=== PATIENT | female | born 1965 | race Caucasian/White ===

== ENCOUNTER 2018-04-20 03:36 | Emergency (ER) | payer BC ==
--- OUTSIDE RECORDS SUMMARY | 2018-04-20 03:39 | XMS REPORT | Continuity of Care Document ---
:1965 Author Organization Interface Problems Problem Status Onset Classification Date Comments Source Date Reported Discharge 07/24/2016 [facility] Diagnosis: 7 [facility] Productive cough Discharge 07/24/2016 [facility] Diagnosis: 7 [facility] Nasal congestion Discharge 07/24/2016 [facility] Diagnosis: 7 [facility] Acute headache Discharge 07/24/2016 [facility] Diagnosis: 7 [facility] Myalgia Discharge 07/24/2016 [facility] Diagnosis: 7 [facility] Fever Discharge 07/24/2016 [facility] Diagnosis: N&V 7 [facility] VOMITING/DIARR Active [facility] HEA 7 [facility] Diabetes Resolved Problem 07/24/2016 [facility] mellitus [facility] Medications Medication Details Route Status Patient Ordering Order Source Instructions Provider Date Acetaminophen 650 mg, 2 Inactive tab, 017 [facility] Route: PO, [facility] form: TAB, ONCE, Dosing Weight 112.727, kg, Start date: 07/21/16 19:56:00 CDT, Stop date: 07/21/16 19:56:00 CDTNotes: Do not exceed 4 gm/day. (Same as: Tylenol) Saline Flush 10 mL, Inactive 0.9% Route: [address] [place] [address] IVP, Drug [facility] Form: INJ, Dosing Weight 112.727, kg, PRN, PRN Line Flush, Start date: 07/21/16 19:56:00 CDT, Duration: 30 day, Stop date: 08/20/16 19:55:00 CDTNotes: (Same as: BD Posiflush) Calcium Chloride 3,000 mL, Inactive 0.0014 MEQ/ML / 2,[address] [place] [address] Potassium ml/hr, City Chloride 0.004 Infuse MEQ/ML / Sodium Over: 1.5 Chloride 0.103 hr, Route: MEQ/ML / Sodium IV, 3,000, Lactate 0.028 Drug form: MEQ/ML INJ, ONCE, Injectable Priority: Solution STAT, Dosing Weight 112.727 kg, Start date: 07/21/16 19:56:00 CDT, Duration: 1 doses or times, Stop date: 07/21/16 19:56:00 CDT Allergies, Adverse Reactions, Alerts Substance Category Reaction Severity Reaction Status Date Comments Source type Reported penicillins Assertion Drug Active allergy [facility] Immunizations Immunization Date Given Site Status Last Updated Comments Source Results Order Name Results Value Reference Date Interpretation Comments Source Range URINE AND UA <=1.0 0.1 - 1.0 07/22 STOOL Urobilinogen mg/dL [facility] URINE AND UA Ketones Negative 07/22 [facility] URINE AND UA RBC 9 /HPF 0 - 2 07/22 [facility] URINE AND UA WBC 2 /HPF 0 - 5 07/22 [facility] URINE AND UA Bacteria Occasional None Seen 07/22 STOOL /HPF /HPF /2016 [facility] URINE AND UA Mucus Few /LPF None Seen 07/22 STOOL /LPF [facility] URINE AND UA Sq Epi Occasional Few /LPF 07/22 STOOL /LPF [facility] URINE AND UA Leuk Est Negative Negative 07/22 [facility] (07/21/16 9:00 PM) [facility] URINE AND UA Nitrite Negative Negative 07/22 [facility] (07/21/16 9:00 PM) [facility] URINE AND UA pH 6.0 5.0 - 8.0 07/22 [facility] URINE AND UA Spec Grav 1.027 <=1.030 07/22 [facility] URINE AND UA Glucose Negative Negative 07/22 STOOL mg/dL mg/dL [facility] URINE AND UA Protein Negative Negative 07/22 STOOL mg/dL mg/dL [facility] URINE AND UA Color Yellow Yellow 07/22 [facility] *NA* [facility] (07/21/16 9:00 PM) URINE AND UA Turbidity Clear Clear 07/22 [facility] (07/21/16 9:00 PM) [facility] URINE AND UA Bili Negative Negative 07/22 [facility] *NA* [facility] (07/21/16 9:00 PM) URINE AND UA Blood Negative Negative 07/22 [facility] (07/21/16 9:00 PM) [facility] VIRAL - Influ A Negative Negative 07/22 SEROLOGY [facility] (07/21/16 8:07 PM) [facility] VIRAL - Influ B Negative Negative 07/22 SEROLOGY [facility] (07/21/16 8:07 PM) [facility] CARDIAC Total CK 41 unit/L 12 - 191 07/22 ENZYMES [facility] CARDIAC CK MB null 0.5 - 3.6 07/22 ENZYMES [facility] CARDIAC Troponin-I null 0.00 - 07/22 ENZYMES 0.40 [facility] CARDIAC CK MB Index null 0.0 - 2.5 07/22 ENZYMES [facility] CHEM PANEL Lactic Acid 1.7 mmol/L 0.5 - 2.2 07/22 WB [facility] CHEM PANEL Procalcitoni <0.05 0.00 - 07/22 n Lvl ng/mL 0.10 [facility] CHEM PANEL eGFR 102 07/22 Result Comment: The eGFR is calculated using the CKD-EPI formula. In most young, healthy individuals the eGFR will be >90 mL/ min/1.73m2. The eGFR declines with age. An eGFR of 60-89 may be normal in mL/min/1.7 some populations, particularly the elderly, for whom the CKD-EPI formula has not been extensively validated. Use of the eGFR is not recommended in the following populations: [address] Individuals with unstable creatinine concentrations, including patients and those with serious co-morbid conditions. Patients with extremes in muscle mass or diet. The data above are obtained from the National Kidney Disease Education Program (NKDEP) which additionally recommends that when the eGFR is used in patients with extremes of body mass index for purposes of drug dosing, the eGFR should be multiplied by the estimated BMI. CHEM PANEL Total 7.6 g/dL 6.4 - 8.4 07/22 Protein [facility] CHEM PANEL CO2 27 meq/L 24 - 32 07/22 [facility] CHEM PANEL Bili Total 0.8 mg/dL 0.2 - 1.3 07/22 [facility] CHEM PANEL Alk Phos 82 unit/L 39 - 136 07/22 [facility] CHEM PANEL AST 13 unit/L 0 - 37 07/22 [facility] CHEM PANEL ALT 25 unit/L 0 - 65 07/22 [facility] CHEM PANEL Albumin Lvl 3.2 g/dL 3.5 - 5.0 07/22 [facility] CHEM PANEL BUN 15 mg/dL 7 - 22 05 [facility] CHEM PANEL Glucose Lvl 165 mg/dL 70 - 99 05 [facility] CHEM PANEL Creatinine 0.70 mg/dL 0.50 - 05 MH Lvl 1.40 [facility] CHEM PANEL Potassium 3.8 meq/L 3.5 - 5.1 07/22 MH Lvl /2016 [facility] CHEM PANEL Chloride Lvl 100 meq/L 95 - 109 07/22 [facility] CHEM PANEL Sodium Lvl 139 meq/L 135 - 145 07/22 [facility] CHEM PANEL Calcium Lvl 8.5 mg/dL 8.5 - 10.5 07/22 [facility] CHEM PANEL AGAP 15.8 meq/L 10.0 - 07/22 MH 20.0 [facility] CHEM PANEL A/G Ratio 0.7 0.7 - 1.6 07/22 [facility] CHEM PANEL Globulin 4.4 g/dL 2.7 - 4.2 07/22 [facility] CHEM PANEL B/C Ratio 21 6 - 25 07/22 [facility] HEMATOLOGY PTT 26.0 s 22.9 - 07/22 MH 35.8 /2016 [facility] HEMATOLOGY INR 0.93 0.85 - 07/22 MH 1.17 [facility] HEMATOLOGY PT 12.7 s 12.0 - 07/22 MH 14.7 [facility] HEMATOLOGY Platelet 299 K/CMM 133 - 450 07/22 [facility] HEMATOLOGY MPV 8.7 fL 7.4 - 10.4 07/22 [facility] HEMATOLOGY WBC 13.5 K/CMM 3.7 - 10.4 07/22 [facility] HEMATOLOGY RBC 4.73 M/CMM 4.20 - 07/22 MH 5.40 [facility] HEMATOLOGY Hgb 13.0 g/dL 12.0 - 07/22 MH 16.0 [facility] HEMATOLOGY MCV 82.8 fL 80.0 - 07/22 MH 98.0 [facility] HEMATOLOGY MCH 27.6 pg 27.0 - 07/22 MH 31.0 [facility] HEMATOLOGY MCHC 33.3 g/dL 32.0 - 07/22 MH 36.0 /2016 [facility] HEMATOLOGY RDW 14.2 % 11.5 - 07/22 MH 14.5 /2016 [facility] HEMATOLOGY Hct 39.1 % 36.0 - 07/22 MH 48.0 /2017 [facility] HEMATOLOGY Lymphocytes 1.0 K/CMM 1.0 - 5.5 05 MH # /2017 [facility] HEMATOLOGY Monocytes # 0.4 K/CMM 0.0 - 0.8 07/22 MH [facility] HEMATOLOGY Basophils # 0.1 K/CMM 0.0 - 0.2 07/22 MH [facility] HEMATOLOGY Eosinophils 0.4 % 0.0 - 4.0 07/22 [facility] HEMATOLOGY Basophils 0.5 % 0.0 - 1.0 07/22 [facility] HEMATOLOGY Monocytes 3.2 % 2.0 - 12.0 07/22 [facility] HEMATOLOGY Segs-Bands # 11.9 K/CMM 1.5 - 8.1 07/22 [facility] HEMATOLOGY Segs 88.3 % 45.0 - 07/22 75.0 /2016 [facility] HEMATOLOGY Lymphocytes 7.6 % 20.0 - 07/22 40.0 [facility] Chest 1view Chest 1view Clinical History : , - Undifferentiated Sepsis 07/21 - DX - [facility] Exam : Portable AP view of the chest 07/21/2016 7:56 PM CDT Read by: Rajesh Lara MD Dictated Date/time: 07/21/16 20:57 Electronically Signed by: Rajesh Lara MD 07/21/16 20:57 FINAL REPORT Comparisons : none Findings : The lungs are clear without focal consolidation or pleural effusion. The heart is normal in size. The mediastinal contours are normal in appearance. The thoracic spine is age appropriate. The shoulders are unremarkable. Limited evaluation of the upper abdomen demonstrates no gross abnormalities. Impression: No acute cardiopulmonary disease Vital Signs Vital Sign Value Date Comments Source Respitory Rate 18 07/22/2016 [facility] Systolic (mm Hg) 108 07/22/2016 [facility] Diastolic (mm Hg) 49 07/22/2016 [facility] Systolic (mm Hg) 109 07/22/2016 [facility] Diastolic (mm Hg) 43 07/22/2016 [facility] Respitory Rate 16 07/22/2016 [facility] Systolic (mm Hg) 119 07/22/2016 [facility] Diastolic (mm Hg) 65 07/22/2016 [facility] Respitory Rate 18 07/22/2016 [facility] BMI Calculated 46.96 07/22/2016 [facility] Weight 112.727 07/22/2016 [facility] Height 154.94 cm 07/22/2016 [facility] Temperature Oral (F) 100.2 F 07/22/2016 [facility] Heart Rate 129 07/22/2016 [facility] Encounters Location Location Encounter Encounter Reason Attending ADM DC Status Source Details Type Number For Provider Date Date Visit [facility] Emergency [id number] Adam 07/22 07/22 Stephon [place] /2016 [facility] Procedures Procedure Code Date Perfomer Comments Source
--- OUTSIDE RECORDS SUMMARY | 2018-04-20 03:39 | XMS REPORT | Summary of Care ---
:1965 Author Organization [facility] Address [address] [place] [id number]- Encounter HQ Nancy(FIN) [id number] Date(s): 07/21/16 - 07/21/[address] [address]- Discharge Diagnosis: Productive cough Discharge Diagnosis: Nasal congestion Discharge Diagnosis: Acute headache Discharge Diagnosis: Myalgia Discharge Diagnosis: Fever Discharge Diagnosis: N&V (nausea and vomiting) Discharge Disposition: Home or Self Care Attending Physician: Adam Eisenberg MD Vital Signs Most recent to oldest 1 2 3 [Reference Range]: Height 154.94 cm (07/21/16 7:52 PM) Temperature Oral [96.4-99.1 100.2 DegF DegF] *HI* (07/21/16 7:52 PM) Blood Pressure [90-140/60-90 108/49 mmHg 109/43 mmHg 119/65 mmHg mmHg] (07/21/16 10:38 PM) (07/21/16 9:29 PM) (07/21/16 8:50 PM) Respiratory Rate [14-20 BRMIN] 18 BRMIN 16 BRMIN 18 BRMIN (07/21/16 10:38 PM) (07/21/16 9:29 PM) (07/21/16 8:50 PM) Peripheral Pulse Rate [60-100 129 bpm bpm] *HI* (07/21/16 7:52 PM) Weight 112.727 kg (07/21/16 7:52 PM) Body Mass Index 46.96 m2 (07/21/16 7:52 PM) Problem List Condition Effective Dates Status Health Status Informant Diabetes mellitus(Confirmed) Resolved Allergies, Adverse Reactions, Alerts Substance Reaction Severity Status penicillins Active Medications acetaminophen 650 mg, 2 tab, Route: PO, Drug form: TAB, ONCE, Dosing Weight 112.727, kg, Start date: 07/21/16 19:56:00 CDT, Stop date: 07/21/16 19:56:00 CDT Notes: Do not exceed 4 gm/day. (Same as: Tylenol) Start Date: 07/21/16 Stop Date: 07/21/16 Status: CompletedLactated Ringers Injection IV (Lactated Ringers (Bolus) IV) 3,000 mL, 2,000 ml/hr, Infuse Over: 1.5 hr, Route: IV, 3,000, Drug form: INJ, ONCE, Priority: STAT, Dosing Weight 112.727 kg, Start date: 07/21/16 19:56:00 CDT, Duration: 1 doses or times, Stop date: 07/21/16 19:56:00 CDT Start Date: 07/21/16 Stop Date: 07/21/16 Status: CompletedSaline Flush 0.9% 10 mL, Route: IVP, Drug Form: INJ, Dosing Weight 112.727, kg, PRN, PRN Line Flush, Start date: 07/21/16 19:56:00 CDT, Duration: 30 day, Stop date: 08/20/16 19:55:00 CDT Notes: (Same as: BD Posiflush) Start Date: 07/21/16 Stop Date: 07/21/16 Status: Discontinued Results ELECTROLYTES Most recent to oldest [Reference Range]: 1 Sodium Lvl [135-145 mEq/L] 139 mEq/L (07/21/16 8:05 PM) Potassium Lvl [3.5-5.1 mEq/L] 3.8 mEq/L (07/21/16 8:05 PM) Chloride Lvl [95-109 mEq/L] 100 mEq/L (07/21/16 8:05 PM) CO2 [24-32 mEq/L] 27 mEq/L (07/21/16 8:05 PM) AGAP [10.0-20.0 mEq/L] 15.8 mEq/L (07/21/16 8:05 PM) CHEM PANEL Most recent to oldest [Reference Range]: 1 Creatinine Lvl [0.50-1.40 mg/dL] 0.70 mg/dL (07/21/16 8:05 PM) eGFR 102 mL/min/1.73m2 1 *NA* (07/21/16 8:05 PM) BUN [7-22 mg/dL] 15 mg/dL (07/21/16 8:05 PM) B/C Ratio [6-25] 21 (07/21/16 8:05 PM) Glucose Lvl [70-99 mg/dL] 165 mg/dL *HI* (07/21/16 8:05 PM) Total Protein [6.4-8.4 g/dL] 7.6 g/dL (07/21/16 8:05 PM) Albumin Lvl [3.5-5.0 g/dL] 3.2 g/dL *LOW* (07/21/16 8:05 PM) Globulin [2.7-4.2 g/dL] 4.4 g/dL *HI* (07/21/16 8:05 PM) A/G Ratio [0.7-1.6] 0.7 (07/21/16 8:05 PM) Calcium Lvl [8.5-10.5 mg/dL] 8.5 mg/dL (07/21/16 8:05 PM) ALT [0-65 unit/L] 25 unit/L (07/21/16 8:05 PM) AST [0-37 unit/L] 13 unit/L (07/21/16 8:05 PM) Alk Phos [39-136 unit/L] 82 unit/L (07/21/16 8:05 PM) Bili Total [0.2-1.3 mg/dL] 0.8 mg/dL (07/21/16 8:05 PM) Lactic Acid WB [0.5-2.2 mmol/L] 1.7 mmol/L (07/21/16 8:05 PM) Procalcitonin Lvl [0.00-0.10 ng/mL] <0.05 ng/mL (07/21/16 8:05 PM) 1Result Comment: The eGFR is calculated using the CKD-EPI formula. In most young , healthy individualsthe eGFR will be >90 mL/min/1.73m2. The eGFR declines with age. An eGFR of 60-89 may be normal in some populations, particularly the elderly, for whom the CKD-EPI formula has not been extensively validated. Use of the eGFR is not recommended in the following populations: Individuals with unstable creatinine concentrations, including patients and those with serious co-morbid conditions. Patients with extremes in muscle mass or diet. The data above are obtained from the National Kidney Disease Education Program ( NKDEP) which additionally recommends that when the eGFR is used in patients with extremes of body mass index for purposesof drug dosing, the eGFR should be multiplied by the estimated BMI.CARDIAC ENZYMES Most recent to oldest [Reference Range]: 1 Total CK [12-191 unit/L] 41 unit/L (07/21/16 8:05 PM) CK MB [0.5-3.6 ng/mL] <0.5 ng/mL (07/21/16 8:05 PM) CK MB Index [0.0-2.5] <1.2 (07/21/16 8:05 PM) Troponin-I [0.00-0.40 ng/mL] <0.02 ng/mL (07/21/16 8:05 PM) URINE AND STOOL Most recent to oldest [Reference Range]: 1 UA Turbidity [Clear] Clear (07/21/16 9:00 PM) UA Color [Yellow] Yellow *NA* (07/21/16 9:00 PM) UA pH [5.0-8.0] 6.0 (07/21/16 9:00 PM) UA Spec Grav [<=1.030] 1.027 (07/21/16 9:00 PM) UA Glucose [Negative mg/dL] Negative mg/dL *NA* (07/21/16 9:00 PM) UA Blood [Negative] Negative (07/21/16 9:00 PM) UA Ketones Negative *NA* (07/21/16 9:00 PM) UA Protein [Negative mg/dL] Negative mg/dL (07/21/16 9:00 PM) UA Urobilinogen [0.1-1.0 mg/dL] <=1.0 mg/dL *NA* (07/21/16 9:00 PM) UA Bili [Negative] Negative *NA* (07/21/16 9:00 PM) UA Leuk Est [Negative] Negative (07/21/16 9:00 PM) UA Nitrite [Negative] Negative (07/21/16 9:00 PM) UA WBC [0-5 /HPF] 2 /HPF (07/21/16 9:00 PM) UA RBC [0-2 /HPF] 9 /HPF *HI* (07/21/16 9:00 PM) UA Bacteria [None Seen /HPF] Occasional /HPF *NA* (07/21/16 9:00 PM) UA Sq Epi [Few /LPF] Occasional /LPF *NA* (07/21/16 9:00 PM) UA Mucus [None Seen /LPF] Few /LPF *NA* (07/21/16 9:00 PM) HEMATOLOGY Most recent to oldest [Reference Range]: 1 WBC [3.7-10.4 K/CMM] 13.5 K/CMM *HI* (07/21/16 8:05 PM) RBC [4.20-5.40 M/CMM] 4.73 M/CMM (07/21/16 8:05 PM) Hgb [12.0-16.0 g/dL] 13.0 g/dL (07/21/16 8:05 PM) Hct [36.0-48.0 %] 39.1 % (07/21/16 8:05 PM) MCV [80.0-98.0 fL] 82.8 fL (07/21/16 8:05 PM) MCH [27.0-31.0 pg] 27.6 pg (07/21/16 8:05 PM) MCHC [32.0-36.0 g/dL] 33.3 g/dL (07/21/16 8:05 PM) RDW [11.5-14.5 %] 14.2 % (07/21/16 8:05 PM) Platelet [133-450 K/CMM] 299 K/CMM (07/21/16 8:05 PM) MPV [7.4-10.4 fL] 8.7 fL (07/21/16 8:05 PM) Segs [45.0-75.0 %] 88.3 % *HI* (07/21/16 8:05 PM) Lymphocytes [20.0-40.0 %] 7.6 % *LOW* (07/21/16 8:05 PM) Monocytes [2.0-12.0 %] 3.2 % (07/21/16 8:05 PM) Eosinophils [0.0-4.0 %] 0.4 % (07/21/16 8:05 PM) Basophils [0.0-1.0 %] 0.5 % (07/21/16 8:05 PM) Segs-Bands # [1.5-8.1 K/CMM] 11.9 K/CMM *HI* (07/21/16 8:05 PM) Lymphocytes # [1.0-5.5 K/CMM] 1.0 K/CMM (07/21/16 8:05 PM) Monocytes # [0.0-0.8 K/CMM] 0.4 K/CMM (07/21/16 8:05 PM) Basophils # [0.0-0.2 K/CMM] 0.1 K/CMM (07/21/16 8:05 PM) PT [12.0-14.7 seconds] 12.7 seconds (07/21/16 8:05 PM) INR [0.85-1.17] 0.93 (07/21/16 8:05 PM) PTT [22.9-35.8 seconds] 26.0 seconds (07/21/16 8:05 PM) VIRAL - SEROLOGY Most recent to oldest [Reference Range]: 1 Influ A [Negative] Negative (07/21/16 8:07 PM) Influ B [Negative] Negative (07/21/16 8:07 PM) Immunizations No data available for this section Procedures No data available for this section Social History Social History Type Response Smoking Status Never smoker; Ready to change: No; Concerns about tobacco use in household: No; Exposure to Tobacco Smoke None; Cigarette Smoking Last 365 Days No; Reg Smoking Cessation Counseling No Assessment and Plan No data available for this section
[2018-04-20 04:24] LABS: Absolute Lymphocytes (CBC) 3.1 K/uL (0.7-4.9); Absolute Monocytes 0.6 K/uL (0.1-1.3); Absolute Neutrophil 7.6 K/uL (1.8-8.0); Basophils % 0.6 % (0-1.3); Eosinophils % 2.3 % (0-4.4); Hematocrit 36.8 % (36.0-45.0); Lymphocytes % 26.3 % (15.3-44.8); MPV 8.7 fL (7.6-11.3); Monocytes % 5.2 % (3.3-12.3); RBC Red Blood Cell Count 4.31 M/uL (3.86-4.86)
[2018-04-20] MEDS ORDERED: NA CHLORIDE 0.9% 1,000 ML ONE (04:30)
[2018-04-20] MEDS ORDERED: KETOROLAC 30 MG/ML INJ ONE (04:30)
[2018-04-20] MEDS ORDERED: ONDANSETRON 4 MG/2 ML VIAL ONE ×2 (04:30→08:25)
[2018-04-20] MEDS ORDERED: MORPHINE 4 MG/ML SYR ONE (04:30)
[2018-04-20 04:48] LABS: Albumin 3.2 g/dL (3.4-5.0); Bilirubin Direct 0.1 mg/dL (0-0.2); Bilirubin Total 0.5 mg/dL (0.2-1.0); Potassium 4.1 mmol/L (3.5-5.1); Protein, Total 7.4 g/dL (6.4-8.2)
[2018-04-20 05:03] LABS: Urine Blood TRACE (NEG); Urine Glucose NEGATIVE (NEG); Urine Protein 1+ (NEG); Urine Specific Gravity >1.030 (1.005-1.030); Urine pH 5.5 (5.0-7.0)
[2018-04-20] MEDS ORDERED: CEFTRIAXONE 1000 MG/VIAL ONE (05:50)
[2018-04-20] MEDS ORDERED: NA CHLORIDE 0.9% 50 ML IV ONE (05:50)
--- NOTE | 2018-04-20 07:20 | EKG ---
Test Date: 2018-04-20 Test Time: 03:58:43 Braille Typist: VERN MEASUREMENT RESULTS: Intervals: Rate: 76 NJ: 106 QRSD: 82 QT: 364 QTc: 409 [place]: P: 3 NJ: 106 QRS: -1 T: 25 INTERPRETIVE STATEMENTS: Sinus rhythm with short [place] Moderate voltage criteria for LVH, may be normal variant Borderline ECG Compared to ECG 09/04/2014 13:37:01 Short [place] interval now present Electronically Signed On 04-20-18 07:19:39 FACILITY SPECIALIST by Tiago Eaton
--- NOTE | 2018-04-20 08:02 | RAD REPORT ---
EXAM DESCRIPTION: CT - Chest For Pe Angio - 04/20/2018 7:25 am CLINICAL HISTORY: Abdominal pain, chest pain, prior hysterectomy, appendectomy and cholecystectomy COMPARISON: CT chest April 2016 and August 2014 TECHNIQUE: Dynamically enhanced 3 mm thick images of the chest were obtained during administration o f approximately 150mL Isovue 370 IV contrast. Coronal and oblique MIP reconstruction images were gene rated and reviewed. Exam utilizes a protocol to evaluate the pulmonary arterial tree. All CT scans are performed using dose optimization technique as appropriate and may include automated exposure control or mA/KV adjustment according to patient size. FINDINGS: No pulmonary emboli are identified. The aorta as imaged shows no acute or suspicious finding. No pericardial thickening or effusion. No acute infiltrate identified. No large or worrisome mass seen in the lung parenchyma. In the latera l right lower lung field (image 50/101) there is a 6 millimeter noncalcified pulmonary nodule. This n odule is approximately 5 mm in 2017 and 4-5 mm in 2014. There is slight motion on the current examina tion which could potentially exaggerates the size of the pulmonary nodule. Potential growth of 1- 2 m m over nearly 5 year interval would favor a benign process. 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 No other nodule seen. No pleural effusion or pleural thickening. No pleural based mass. No mediastinal or hilar suspicious masses. No chest wall masses or abnormal axillary lymphadenopathy. No pericardial thickening or effusion. IMPRESSION: No pulmonary emboli identified. No acute infectious infiltrate. No significant interstitial process identifiable. A right lower lung field pulmonary nodule measures 6 mm on the current examination, 5 mm in 2016 and 4-5 mm in 2014.This minimal if any growth over a nearly 5 year interval would strongly favor a benign process. If the patient has risk factors for malignancy, CT chest re- imaging in 6-12 months could be performe d to assure stability. The nodule is too small for PET-CT characterization.
--- NOTE | 2018-04-20 08:25 | RAD REPORT ---
EXAM DESCRIPTION: US - Extrem Venous W Compress Tutu - 04/20/2018 7:04 am CLINICAL HISTORY: Leg pain and swelling COMPARISON: None. TECHNIQUE: Real-time sonographic evaluation of the bilateral lower extremity common femoral, superfi cial femoral, popliteal and posterior tibial veins was performed. FINDINGS: Normal compressibility, flow augmentation, phasic flow and spontaneous flow are identified in the left and right lower extremity common femoral, superficial femoral, popliteal and posterior t ibial veins. No intraluminal filling defects seen. IMPRESSION: No DVT in either lower extremity.
--- NOTE | 2018-04-20 09:01 | ER ---
Nurse's Notes [facility] Name: Willow Guerrero Age: 52 yrs Sex: Female : 1965 Arrival Date: 04/20/2018 Time: 03:38 Bed 8 Private MD: Juanita De C Diagnosis: Urinary tract infection, site not specified;Abdominal tenderness;Type 2 diabetes mellitus;Obesity, unspecified Presentation: 04/20 03:52 Presenting complaint: Patient states: I have had kidney stones in the past and this ed1 feel a little bit similar to that. I have also had diarrhea since Friday and Dr. De prescribed me Lomotil. The diarrhea isn't watery anymore but it is still loose. Transition of care: patient was not received from another setting of care. Onset of symptoms was April 19, 2018. Risk Assessment: Do you want to hurt yourself or someone else? Patient reports no desire to harm self or others. Initial Sepsis Screen: Does the patient meet any 2 criteria? No. Patient's initial sepsis screen is negative. Does the patient have a suspected source of infection? No. Patient's initial sepsis screen is negative. Care prior to arrival: None. 03:52 Method Of Arrival: Ambulatory ed1 03:52 Acuity: HERBERT 3 ed1 Triage Assessment: 04:00 General: Appears uncomfortable, Behavior is calm, cooperative. Pain: Complains of pain ed1 in posterior aspect of right lateral abdomen and anterior aspect of right lateral abdomen Pain does not radiate. Pain currently is 9 out of 10 on a pain scale. Quality of pain is described as sharp, Pain began 1 day ago. Is continuous. EENT: Oral mucosa is moist. Neuro: Level of Consciousness is awake, alert, obeys commands, Oriented to person, place, time, situation. Cardiovascular: Denies chest pain, Heart tones S1 S2 present. Respiratory: Airway is patent Respiratory effort is even, unlabored, Respiratory pattern is regular, symmetrical, Breath sounds are clear bilaterally. Denies cough, shortness of breath. GI: Abdomen is obese, Bowel sounds present X 4 quads. Abd is soft X 4 quads Reports lower abdominal pain, upper abdominal pain, diarrhea, nausea, Patient currently denies vomiting. : No signs and/or symptoms were reported regarding the genitourinary system. Derm: Skin is intact, is healthy with good turgor, Skin is dry, Skin is normal, Skin temperature is warm. Musculoskeletal: Circulation, motion, and sensation intact. Capillary refill < 3 seconds, in bilateral fingers. 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 ed1 Historical: - Allergies: 04:00 PENICILLINS; ed1 - Home Meds: 04:00 atorvastatin 40 mg oral tab 1 tab once daily [Active]; gabapentin 100 mg oral cap 2 ed1 caps 3 times per day [Active]; lisinopril 2.5 mg oral tab 1 tab once daily [Active]; metformin 1,000 mg oral tab 1 tab 2 times per day [Active]; Vitamin B-12 500 mcg Oral tab 1 tab daily [Active]; glimepiride 4 mg Oral tab 1 tab twice a day [Active]; propranolol 10 mg Oral tab 1 tab daily [Active]; Tradjenta 5 mg oral tab 1 tab once daily [Active]; loratadine 10 mg oral tab 1 tab once daily [Active]; - PMHx: 04:00 Diabetes - NIDDM; High Cholesterol; ed1 - PSHx: 04:00 Hysterectomy; Appendectomy; Adenoids; Tonsillectomy; Cholecystectomy; ed1 - Immunization history:: Adult Immunizations up to date, Flu vaccine is not up to date. It has been more than one year since last vaccine. - Social history:: Smoking status: Patient/guardian denies using tobacco. - Ebola Screening: : Patient negative for fever greater than or equal to 101.5 degrees Fahrenheit, and additional compatible Ebola Virus Disease symptoms Patient denies exposure to infectious person Patient denies travel to an Ebola-affected area in the 21 days before illness onset No symptoms or risks identified at this time. - Family history:: not pertinent. Screenin:04 Abuse screen: Denies threats or abuse. Denies injuries from another. Nutritional ed1 screening: No deficits noted. Tuberculosis screening: No symptoms or risk factors identified. Fall Risk None identified. Assessment: 04:04 General: See triage assessment. ed1 04:51 Reassessment: Patient appears in no apparent distress at this time. Patient and/or ed1 family updated on plan of care and expected duration. Pain level reassessed. Patient is alert, oriented x 3, equal unlabored respirations, skin warm/dry/pink. Patient states feeling better. Patient states symptoms have improved. 05:45 Reassessment: Patient appears in no apparent distress at this time. No changes from ed1 previously documented assessment. Patient and/or family updated on plan of care and expected duration. Pain level reassessed. Patient is alert, oriented x 3, equal unlabored respirations, skin warm/dry/pink. Patient states feeling better. Patient states symptoms have improved. 06:44 Reassessment: Patient appears in no apparent distress at this time. Patient and/or ed1 family updated on plan of care and expected duration. Pain level reassessed. Patient is alert, oriented x 3, equal unlabored respirations, skin warm/dry/pink. Dr. Albrecht at bedside and pt reports chest pain not previously reported to this nurse. Cardiovascular: Reports chest pain, Heart tones S1 S2 present Patient's skin is warm and dry. 07:20 Reassessment: Patient appears in no apparent distress at this time. No changes from tw2 previously documented assessment. Patient and/or family updated on plan of care and expected duration. Pain level reassessed. Patient is alert, oriented x 3, equal unlabored respirations, skin warm/dry/pink. 08:35 Reassessment: Patient appears in no apparent distress at this time. No changes from tw2 previously documented assessment. Patient and/or family updated on plan of care and expected duration. Pain level reassessed. Patient is alert, oriented x 3, equal unlabored respirations, skin warm/dry/pink. 09:07 Reassessment: Patient appears in no apparent distress at this time. No changes from tw2 previously documented assessment. Patient and/or family updated on plan of care and expected duration. Pain level reassessed. Patient is alert, oriented x 3, equal unlabored respirations, skin warm/dry/pink. Patient states feeling better. Patient states symptoms have improved. Vital Signs: 04:00 BP 126 / 73; Pulse 89; Resp 18; Temp 97.9(O); Pulse Ox 99% on R/A; Pain 9/10; ed1 04:51 BP 108 / 46; Pulse 75; Resp 16; Pulse Ox 96% on R/A; Pain 5/10; ed1 05:45 BP 96 / 47; Pulse 92; Resp 16; Pulse Ox 95% on R/A; Pain 3/10; ed1 06:44 BP 102 / 48; Pulse 80; Resp 17; Pulse Ox 94% on R/A; Pain 3/10; ed1 08:23 BP 109 / 62; Pulse 77; Resp 16 S; Pulse Ox 96% on R/A; jl7 ED Course: 03:38 Patient arrived in ED. es 03:39 Juanita De MD is Private Physician. es 03:51 Brandi Martinez, RN is Primary Nurse. ed1 03:53 Triage completed. ed1 03:55 Inserted saline lock: 20 gauge in right forearm, using aseptic technique. Blood lp1 collected. 04:00 Arm band placed on. ed1 04:01 EKG done, by ED staff, reviewed by Jason Albrecht MD. tl2 04:04 Patient has correct armband on for positive identification. Placed in gown. Bed in low ed1 position. Call light in reach. Pulse ox on. NIBP on. 04:07 Jason Albrecht MD is Attending Physician. theo 04:52 CT Stone Protocol In Process Unspecified. EDMS 06:[address] Scan. ed1 06:59 Primary Nurse role handed off by Brandi Martinez RN ed1 07:04 US Extremity Venous W Compression Tutu In Process Unspecified. EDMS 07:[address] vr 07:[address] sw 07:17 Corrine Rodriguez, RN is Primary Nurse. tw2 07:28 CT Chest For PE Angio In Process Unspecified. EDMS 09:00 Fab Galo PA is PHCP. jr8 09:00 Juanita De MD is Referral Physician. jr8 09:00 Baljit Lorenzo MD is Referral Physician. jr8 09:06 No provider procedures requiring assistance completed. IV discontinued, intact, tw2 bleeding controlled, No redness/swelling at site. Pressure dressing applied. Administered Medications: 04:30 Drug: morphine 4 mg Route: IVP; Site: right forearm; ed1 04:53 Follow up: Response: No adverse reaction; Pain is decreased ed1 04:30 Drug: Zofran 4 mg Route: IVP; Site: right forearm; ed1 04:53 Follow up: Response: No adverse reaction; Nausea is decreased ed1 04:31 Drug: NS 0.9% 1000 ml Route: IV; Rate: 1 bolus; Site: right forearm; ed1 05:44 Follow up: IV Status: Completed infusion; IV Intake: 1000ml ed1 04:31 Drug: TORadol 30 mg Route: IVP; Site: right forearm; ed1 04:54 Follow up: Response: No adverse reaction; Nausea is decreased ed1 05:44 Drug: Rocephin - (cefTRIAXone) 1 grams Route: IVPB; Infused Over: 30 mins; Site: right ed1 forearm; 06:15 Follow up: Response: No adverse reaction; IV Status: Completed infusion ed1 08:19 Drug: Zofran 4 mg Route: IVP; Site: left forearm; jl7 09:03 Follow up: Response: No adverse reaction; Nausea is decreased tw2 Intake: 05:44 IV: 1000ml; Total: 1000ml. ed1 Outcome: 09:00 Discharge ordered by . jr8 09:07 Discharged to home ambulatory, with significant other. tw 09:07 Condition: stable 09:07 Discharge instructions given to patient, significant other, Instructed on discharge instructions, follow up and referral plans. no drinking with medication, no driving heavy equipment, medication usage, Demonstrated understanding of instructions, follow-up care, medications, Prescriptions given X 3. 09:07 Patient left the ED. tw2 Signatures: Dispatcher [employer] EDMS Jason Albrecht MD MD cha Salyer, Edna es Riggs, Erika, RN RN ed1 Bree Toure Laura, RN RN lp1 Fab Galo PA PA jr8 Matilde Costa Tara, RN RN tw2 Destiny Lizama RN RN tl2 Goran Miller RN RN jl7
--- NOTE | 2018-04-20 09:01 | EDPHYS ---
Physician Documentation [facility] Name: Willow Guerrero Age: 52 yrs Sex: Female : 1965 Arrival Date: 04/20/2018 Time: 03:38 Bed 8 Private MD: Juanita De C ED Physician Jason Albrecht HPI: 04/20 04:13 This 52 yrs old Female presents to ER via Ambulatory with complaints of theo Abdominal Pain. 04:13 The patient complains of pain in the right mid back and right low back. The pain does theo not radiate. Onset: The symptoms/episode began/occurred 1 day(s) ago. Modifying factors: The symptoms are alleviated by nothing. the symptoms are aggravated by nothing. Associated signs and symptoms: The patient has no apparent associated signs or symptoms. Severity of pain: At its worst the pain was moderate severe in the emergency department the pain is unchanged. The patient has not experienced similar symptoms in the past. 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 ed1 Historical: - Allergies: 04:00 PENICILLINS; ed1 - Home Meds: 04:00 atorvastatin 40 mg oral tab 1 tab once daily [Active]; gabapentin 100 mg oral cap 2 ed1 caps 3 times per day [Active]; lisinopril 2.5 mg oral tab 1 tab once daily [Active]; metformin 1,000 mg oral tab 1 tab 2 times per day [Active]; Vitamin B-12 500 mcg Oral tab 1 tab daily [Active]; glimepiride 4 mg Oral tab 1 tab twice a day [Active]; propranolol 10 mg Oral tab 1 tab daily [Active]; Tradjenta 5 mg oral tab 1 tab once daily [Active]; loratadine 10 mg oral tab 1 tab once daily [Active]; - PMHx: 04:00 Diabetes - NIDDM; High Cholesterol; ed1 - PSHx: 04:00 Hysterectomy; Appendectomy; Adenoids; Tonsillectomy; Cholecystectomy; ed1 - Immunization history:: Adult Immunizations up to date, Flu vaccine is not up to date. It has been more than one year since last vaccine. - Social history:: Smoking status: Patient/guardian denies using tobacco. - Ebola Screening: : Patient negative for fever greater than or equal to 101.5 degrees Fahrenheit, and additional compatible Ebola Virus Disease symptoms Patient denies exposure to infectious person Patient denies travel to an Ebola-affected area in the 21 days before illness onset No symptoms or risks identified at this time. - Family history:: not pertinent. ROS: 04:13 Constitutional: Negative for fever, chills, and weight loss, Eyes: Negative for injury, theo pain, redness, and discharge, ENT: Negative for injury, pain, and discharge, Neck: Negative for injury, pain, and swelling, Cardiovascular: Negative for chest pain, palpitations, and edema, Respiratory: Negative for shortness of breath, cough, wheezing, and pleuritic chest pain, Abdomen/GI: Negative for abdominal pain, nausea, vomiting, diarrhea, and constipation, : Negative for injury, bleeding, discharge, and swelling, MS/Extremity: Negative for injury and deformity, Skin: Negative for injury, rash, and discoloration, Neuro: Negative for headache, weakness, numbness, tingling, and seizure, Psych: Negative for depression, anxiety, suicide ideation, homicidal ideation, and hallucinations, Allergy/Immunology: Negative for hives, rash, and allergies, Endocrine: Negative for neck swelling, polydipsia, polyuria, polyphagia, and marked weight changes, Hematologic/Lymphatic: Negative for swollen nodes, abnormal bleeding, and unusual bruising. 04:13 Back: Positive for pain at rest, flank pain, on the right. Exam: 04:13 Constitutional: This is a well developed, well nourished patient who is awake, alert, theo and in no acute distress. Head/Face: Normocephalic, atraumatic. Eyes: Pupils equal round and reactive to light, extra-ocular motions intact. Lids and lashes normal. Conjunctiva and sclera are non-icteric and not injected. Cornea within normal limits. Periorbital areas with no swelling, redness, or edema. ENT: Nares patent. No nasal discharge, no septal abnormalities noted. Tympanic membranes are normal and external auditory canals are clear. Oropharynx with no redness, swelling, or masses, exudates, or evidence of obstruction, uvula midline. Mucous membranes moist. Neck: Trachea midline, no thyromegaly or masses palpated, and no cervical lymphadenopathy. Supple, full range of motion without nuchal rigidity, or vertebral point tenderness. No Meningismus. Chest/axilla: Normal chest wall appearance and motion. Nontender with no deformity. No lesions are appreciated. Cardiovascular: Regular rate and rhythm with a normal S1 and S2. No gallops, murmurs, or rubs. Normal PMI, no JVD. No pulse deficits. Respiratory: Lungs have equal breath sounds bilaterally, clear to auscultation and percussion. No rales, rhonchi or wheezes noted. No increased work of breathing, no retractions or nasal flaring. Abdomen/GI: Soft, non-tender, with normal bowel sounds. No distension or tympany. No guarding or rebound. No evidence of tenderness throughout. Skin: Warm, dry with normal turgor. Normal color with no rashes, no lesions, and no evidence of cellulitis. MS/ Extremity: Pulses equal, no cyanosis. Neurovascular intact. Full, normal range of motion. Neuro: Awake and alert, GCS 15, oriented to person, place, time, and situation. Cranial nerves II-XII grossly intact. Motor strength 5/5 in all extremities. Sensory grossly intact. Cerebellar exam normal. Normal gait. Psych: Awake, alert, with orientation to person, place and time. Behavior, mood, and affect are within normal limits. 04:13 Back: pain, that is moderate, ROM is normal, normal spinal alignment noted, CVA tenderness, that is moderate, is noted on the right, muscle spasm, is not present. 06:33 Musculoskeletal/extremity: DVT Exam: No signs of deep vein thrombosis. no pain, no theo swelling, no tenderness, negative Homans' sign noted on exam, no appreciated bluish discoloration, no erythema, no increased warmth. Vital Signs: 04:00 BP 126 / 73; Pulse 89; Resp 18; Temp 97.9(O); Pulse Ox 99% on R/A; Pain 9/10; ed1 04:51 BP 108 / 46; Pulse 75; Resp 16; Pulse Ox 96% on R/A; Pain 5/10; ed1 05:45 BP 96 / 47; Pulse 92; Resp 16; Pulse Ox 95% on R/A; Pain 3/10; ed1 06:44 BP 102 / 48; Pulse 80; Resp 17; Pulse Ox 94% on R/A; Pain 3/10; ed1 08:23 BP 109 / 62; Pulse 77; Resp 16 S; Pulse Ox 96% on R/A; jl7 MDM: 04:07 Patient medically screened. [facility] 04:17 Data reviewed: vital signs, nurses notes, lab test result(s), EKG, radiologic studies, [facility] CT scan. 04/20 04:12 Order name: Basic Metabolic Panel; Complete Time: 05:05 [facility] 04/20 04:12 Order name: CBC with Diff; Complete Time: 05:05 [facility] 04/20 04:12 Order name: Creatinine for Radiology; Complete Time: 05:05 [facility] 04/20 04:12 Order name: Hepatic Function; Complete Time: 05:05 [facility] 04/20 04:12 Order name: Lipase; Complete Time: 05:05 [facility] 04/20 04:12 Order name: Urine Culture [facility] 04/20 04:13 Order name: CT Stone Protocol [facility] 04/20 04:36 Order name: Urine Dipstick--Ancillary (enter results); Complete Time: 05:05 ar5 04/20 06:30 Order name: Troponin (emerg Dept Use Only); Complete Time: 06:50 [facility] 04/20 06:30 Order name: CT Chest For PE Angio; Complete Time: 08:59 [facility] 04/20 06:32 Order name: D-Dimer; Complete Time: 06:50 [facility] 04/20 06:40 Order name: US Extremity Venous W Compression Tutu; Complete Time: 08:59 [facility] 04/20 04:12 Order name: IV Saline Lock; Complete Time: 04:13 [facility] 04/20 04:12 Order name: Labs collected and sent; Complete Time: 04:13 [facility] 04/20 04:12 Order name: Urine Dipstick-Ancillary (obtain specimen); Complete Time: 04:29 [facility] 04/20 04:15 Order name: EKG; Complete Time: 04:16 tl2 04/20 04:15 Order name: EKG - Nurse/Tech; Complete Time: 04:15 tl2 Administered Medications: 04:30 Drug: morphine 4 mg Route: IVP; Site: right forearm; ed1 04:53 Follow up: Response: No adverse reaction; Pain is decreased ed1 04:30 Drug: Zofran 4 mg Route: IVP; Site: right forearm; ed1 04:53 Follow up: Response: No adverse reaction; Nausea is decreased ed1 04:31 Drug: NS 0.9% 1000 ml Route: IV; Rate: 1 bolus; Site: right forearm; ed1 05:44 Follow up: IV Status: Completed infusion; IV Intake: 1000ml ed1 04:31 Drug: TORadol 30 mg Route: IVP; Site: right forearm; ed1 04:54 Follow up: Response: No adverse reaction; Nausea is decreased ed1 05:44 Drug: Rocephin - (cefTRIAXone) 1 grams Route: IVPB; Infused Over: 30 mins; Site: right ed1 forearm; 06:15 Follow up: Response: No adverse reaction; IV Status: Completed infusion ed1 08:19 Drug: Zofran 4 mg Route: IVP; Site: left forearm; jl7 09:03 Follow up: Response: No adverse reaction; Nausea is decreased tw2 Disposition: 04/20/18 09:00 Discharged to Home. Impression: Urinary tract infection, site not specified, Abdominal tenderness, Type 2 diabetes mellitus, Obesity, unspecified. - Condition is Stable. - Discharge Instructions: Abdominal Pain, Adult, Type 2 Diabetes Mellitus, Diagnosis, Adult, Urinary Tract Infection, Adult, Urinary Tract Infection, Adult, [id number], Abdominal Pain, Adult, [id number], Dietary Guidelines to Help Prevent Kidney Stones, Type 2 Diabetes Mellitus, Diagnosis, Adult, [id number]. - Prescriptions for Tylenol- Codeine #3 300-30 mg Oral Tablet - take 2 tablet by ORAL route every 6 hours As needed; 30 tablet. Zofran 4 mg Oral Tablet - take 1 tablet by ORAL route every 12 hours As needed; 20 tablet. Cipro 500 mg Oral Tablet - take 1 tablet by ORAL route every 12 hours for 7 days; 14 tablet. - Medication Reconciliation Form, Thank You Letter, Antibiotic Education, Prescription Opioid Use, Work release form, Family Work Release form. - Follow up: Juanita De; When: 2 - 3 days; Reason: Recheck today's complaints, Continuance of care, Re-evaluation by your physician. Follow up: Baljit Lorenzo; When: 2 - 3 days; Reason: Recheck today's complaints, Re-evaluation by your physician. - Problem is new. - Symptoms have improved. Signatures: Dispatcher [employer] EDMS Jason Albrecht MD MD cha Riggs, Erika RN RN ed1 Fab Galo PA PA jr8 Corrine Rodriguez RN RN tw2 Destiny Lizama RN RN tl2 Goran Miller RN RN jl7 Corrections: (The following items were deleted from the chart) 09:07 09:00 04/20/2018 09:00 Discharged to Home. Impression: Urinary tract infection, site tw2 not specified; Abdominal tenderness; Type 2 diabetes mellitus; Obesity, unspecified. Condition is Stable. Discharge Instructions: Dietary Guidelines to Help Prevent Kidney Stones, Abdominal Pain, Adult, Type 2 Diabetes Mellitus, Diagnosis, Adult, Urinary Tract Infection, Adult, Urinary Tract Infection, Adult, [id number], Abdominal Pain, Adult, [id number], Type 2 Diabetes Mellitus, Diagnosis, Adult, [id number]. Prescriptions for Tylenol-Codeine #3 300-30 mg Oral Tablet - take 2 tablet by ORAL route every 6 hours As needed; 30 tablet, Zofran 4 mg Oral Tablet - take 1 tablet by ORAL route every 12 hours As needed; 20 tablet, Cipro 500 mg Oral Tablet - take 1 tablet by ORAL route every 12 hours for 7 days; 14 tablet. and Forms are Medication Reconciliation Form, Thank You Letter, Antibiotic Education, Prescription Opioid Use. Follow up: Juanita De; When: 2 - 3 days; Reason: Recheck today's complaints, Continuance of care, Re-evaluation by your physician. Follow up: Baljit Lorenzo; When: 2 - 3 days; Reason: Recheck today's complaints, Re-evaluation by your physician. Problem is new. Symptoms have improved. jr8
[2018-04-20 09:21] VITALS: TEMP 97.9
[2018-04-20 09:26] VITALS: BP 109/62; O2SAT 96
--- NOTE | 2018-04-21 16:53 | RAD REPORT ---
EXAM DESCRIPTION: CT - Stone Protocol - 04/20/2018 6:04 am CLINICAL HISTORY: 52-year old female with flank pain. COMPARISON: Prior CT abdomen and pelvis performed on 11/20/2014. TECHNIQUE: Axial CT imaging of the abdomen and pelvis was performed. Sagittal and coronal reconstructed images w ere then performed.The CT study is performed according to ALARA (as low as reasonably achievable) or ALARA/IMAGE GENTLY, with automatic adjustment of mA and/or kV according to patient size. FINDINGS: Lung bases: There is mild hazy opacification in the lung bases which may be due to atelect asis or potentially edema. There is a stable 5 mm parenchymal nodule in the posterior lateral right l ower lobe. The lung bases are otherwise clear. Liver: The liver is enlarged and measures 25 cm in craniocaudal dimension. There has been interval en largement of the liver when compared to the prior study. No focal hepatic abnormalities are appprecia etelvina on this unenhanced scan. There is diffusely decreased attenuation of the liver commonly due to fa tty infiltration. Spleen: The spleen is normal is size, configuration and attenuation. No focal splenic abnormalities a re appreciated on this unenhanced scan. Gallbladder and bile duct: The gallbladder is surgically absent. There is no biliary ductal dilatatio n. Pancreas: The pancreas is grossly normal in size and configuration. Adrenal Glands: The adrenal glands ar normal in size and configuration. Kidneys: The kidneys are normal in size and configuration. There is no evidence of hydronephrosis. Th ere is bilateral nonobstructing nephrolithiasis. No focal renal abnormalities are identified. Stomach: The stomach is grossly normal. There is a small hiatal hernia. Bowel: The bowel gas pattern is non specific and non obstructive. Appendix: There is no CT evidence of acute appendicitis. Free air: There is no evidence of free air. Free fluid: There is no evidence of free fluid. Vasculature: The aorta is normal in caliber and contour. The inferior vena cava is grossly unremarkab le. Lymphadenopathy: No pathologic lymphadenopathy is identified. Bladder: The bladder is decompressed on this examination. Reproductive: The uterus is surgically absent. Bone: No acute osseous abnormalities are identified. Soft tissues: There is a small fat-containing ventral umbilical hernia. There is very mild infiltrati on of the subcutaneous fat particularly along the anterior abdominal wall consistent with mild edema. There is artifact projecting over the central pelvis, technical in nature. IMPRESSION: 1. Bilateral nonobstructing nephrolithiasis. 2. Marked hepatomegaly and fatty infiltration of the liver. There has been an interval increase in si ze of the liver when compared to the prior study. 3. Interval cholecystectomy since the prior study. 4. Small hiatal hernia. 5.Mild hazy opacification in the lung bases which may be due to atelectasis or edema. 6. Stable 5 mm nodule in the right lower lobe. 7. Remote hysterectomy. 8. Mild subcutaneous edema and small fat-containing ventral umbilical hernia. Electronically signed by Isi Han DO 04/20/2018 5:10 AM FRAME BUILDER Due to temporary technical issues with the PACS/Fluency reporting system, reports are being signed by the in house radiologist as a courtesy to ensure prompt reporting. The interpreting radiologist is f ully responsible for the content of the report.
== END 2018-04-20 09:07 | disposition home or self-care (01) ==
LOC: ER 03:36
DX: N39.0 Urinary tract infection, site not specified (principal); E11.9 Type 2 diabetes mellitus without complications; E66.9 Obesity, unspecified; E78.00 Pure hypercholesterolemia, unspecified; Z88.0 Allergy status to penicillin
CPT/HCPCS: 36415; 71275; 74176; 76377; 80048; 80076; 81003; 83690; 84484; 85025; 85379; 87077; 87086; 87088; 87186; 93005; 93970; 99285; J2405; J7030; Q9967

== ENCOUNTER 2018-05-09 13:48 | Emergency (ER) | payer BC ==
--- OUTSIDE RECORDS SUMMARY | 2018-05-09 13:51 | XMS REPORT | Continuity of Care Document ---
:1965 Author Organization Interface Problems Problem Status Onset Classification Date Comments Source Date Reported Discharge [facility] Diagnosis: 7 [facility] Productive cough Discharge 07/24/2016 [facility] Diagnosis: 7 [facility] Nasal congestion Discharge 07/24/2016 [facility] Diagnosis: 7 [facility] Acute headache Discharge 07/24/2016 [facility] Diagnosis: 7 [facility] Myalgia Discharge 07/24/2016 [facility] Diagnosis: 7 [facility] Fever Discharge 07/24/2016 [facility] Diagnosis: N&V 7 [facility] VOMITING/DIARR Active [facility] HEA 7 [facility] Diabetes Resolved Problem 07/24/2016 [facility] 2001 mellitus [facility] Medications Medication Details Route Status Patient Ordering Order Source Instructions Provider Date Acetaminophen 650 mg, 2 Inactive tab, 017 [facility] Route: PO, [facility] form: TAB, ONCE, Dosing Weight 112.727, kg, Start date: 07/21/16 19:56:00 CDT, Stop date: 07/21/16 19:56:00 CDTNotes: Do not exceed 4 gm/day. (Same as: Tylenol) Saline Flush 10 mL, Inactive 0.9% Route: [address] [place] [address] IVP, Drug [facility] Form: INJ, Dosing Weight 112.727, kg, PRN, PRN Line Flush, Start date: 07/21/16 19:56:00 CDT, Duration: 30 day, Stop date: 08/20/16 19:55:00 CDTNotes: (Same as: BD Posiflush) Calcium Chloride 3,000 mL, Inactive 0.0014 MEQ/ML / 2,[address] [place] [address] Potassium ml/hr, City Chloride 0.004 Infuse MEQ/ML [...] type Reported penicillins Assertion Drug Active allergy [facility] Immunizations Immunization Date Given Site Status Last Updated Comments Source Results Order Name Results Value Reference Date Interpretation Comments Source Range URINE AND UA <=1.0 0.1 - 1.0 07/22 STOOL Urobilinogen mg/dL [facility] URINE AND UA Ketones Negative 07/22 [facility] URINE AND UA RBC 9 /HPF 0 - 2 07/22 [facility] URINE AND UA WBC 2 /HPF 0 - 5 07/22 [facility] URINE AND UA Bacteria Occasional None Seen 07/22 STOOL /HPF /HPF /2016 [facility] URINE AND UA Mucus Few /LPF None Seen 07/22 STOOL /LPF [facility] URINE AND UA Sq Epi Occasional Few /LPF 07/22 STOOL /LPF [facility] URINE AND UA Leuk Est Negative Negative 07/22 [facility] (07/21/16 9:00 PM) [facility] URINE AND UA Nitrite Negative Negative 07/22 [facility] (07/21/16 9:00 PM) [facility] URINE AND UA pH 6.0 5.0 - 8.0 07/22 [facility] URINE AND UA Spec Grav 1.027 <=1.030 07/22 [facility] URINE AND UA Glucose Negative Negative 07/22 STOOL mg/dL mg/dL [facility] URINE AND UA Protein Negative Negative 07/22 STOOL mg/dL mg/dL [facility] URINE AND UA Color Yellow Yellow 07/22 [facility] *NA* [facility] (07/21/16 9:00 PM) URINE AND UA Turbidity Clear Clear 07/22 [facility] (07/21/16 9:00 PM) [facility] URINE AND UA Bili Negative Negative 07/22 [facility] *NA* [facility] (07/21/16 9:00 PM) URINE AND UA Blood Negative Negative 07/22 [facility] (07/21/16 9:00 PM) [facility] VIRAL - Influ A Negative Negative 07/22 SEROLOGY [facility] (07/21/16 8:07 PM) [facility] VIRAL - Influ B Negative Negative 07/22 SEROLOGY [facility] (07/21/16 8:07 PM) [facility] CARDIAC Total CK 41 unit/L 12 - 191 07/22 ENZYMES [facility] CARDIAC CK MB null 0.5 - 3.6 07/22 ENZYMES [facility] CARDIAC Troponin-I null 0.00 - 07/22 ENZYMES 0.40 [facility] CARDIAC CK MB Index null 0.0 - 2.5 07/22 ENZYMES [facility] CHEM PANEL Lactic Acid 1.7 mmol/L 0.5 - 2.2 07/22 WB [facility] CHEM PANEL Procalcitoni <0.05 0.00 - 07/22 n Lvl ng/mL 0.10 [facility] CHEM PANEL eGFR 102 07/22 Result Comment: [...] is not recommended in the following populations: [address] Individuals with unstable creatinine concentrations, including [...] 7.6 g/dL 6.4 - 8.4 07/22 Protein [facility] CHEM PANEL CO2 27 meq/L 24 - 32 07/22 [facility] CHEM PANEL Bili Total 0.8 mg/dL 0.2 - 1.3 07/22 [facility] CHEM PANEL Alk Phos 82 unit/L 39 - 136 07/22 [facility] CHEM PANEL AST 13 unit/L 0 - 37 07/22 [facility] CHEM PANEL ALT 25 unit/L 0 - 65 07/22 [facility] CHEM PANEL Albumin Lvl 3.2 g/dL 3.5 - 5.0 07/22 [facility] CHEM PANEL BUN 15 mg/dL 7 - 22 05 [facility] CHEM PANEL Glucose Lvl 165 mg/dL 70 - 99 05 [facility] CHEM PANEL Creatinine 0.70 mg/dL 0.50 - 05 MH Lvl 1.40 [facility] CHEM PANEL Potassium 3.8 meq/L 3.5 - 5.1 07/22 MH Lvl /2016 [facility] CHEM PANEL Chloride Lvl 100 meq/L 95 - 109 07/22 [facility] CHEM PANEL Sodium Lvl 139 meq/L 135 - 145 07/22 [facility] CHEM PANEL Calcium Lvl 8.5 mg/dL 8.5 - 10.5 07/22 [facility] CHEM PANEL AGAP 15.8 meq/L 10.0 - 07/22 MH 20.0 [facility] CHEM PANEL A/G Ratio 0.7 0.7 - 1.6 07/22 [facility] CHEM PANEL Globulin 4.4 g/dL 2.7 - 4.2 07/22 [facility] CHEM PANEL B/C Ratio 21 6 - 25 07/22 [facility] HEMATOLOGY PTT 26.0 s 22.9 - 07/22 MH 35.8 /2016 [facility] HEMATOLOGY INR 0.93 0.85 - 07/22 MH 1.17 [facility] HEMATOLOGY PT 12.7 s 12.0 - 07/22 MH 14.7 [facility] HEMATOLOGY Platelet 299 K/CMM 133 - 450 07/22 [facility] HEMATOLOGY MPV 8.7 fL 7.4 - 10.4 07/22 [facility] HEMATOLOGY WBC 13.5 K/CMM 3.7 - 10.4 07/22 [facility] HEMATOLOGY RBC 4.73 M/CMM 4.20 - 07/22 MH 5.40 [facility] HEMATOLOGY Hgb 13.0 g/dL 12.0 - 07/22 MH 16.0 [facility] HEMATOLOGY MCV 82.8 fL 80.0 - 07/22 MH 98.0 [facility] HEMATOLOGY MCH 27.6 pg 27.0 - 07/22 MH 31.0 [facility] HEMATOLOGY MCHC 33.3 g/dL 32.0 - 07/22 MH 36.0 /2016 [facility] HEMATOLOGY RDW 14.2 % 11.5 - 07/22 MH 14.5 /2016 [facility] HEMATOLOGY Hct 39.1 % 36.0 - 07/22 MH 48.0 /2017 [facility] HEMATOLOGY Lymphocytes 1.0 K/CMM 1.0 - 5.5 05 MH # /2017 [facility] HEMATOLOGY Monocytes # 0.4 K/CMM 0.0 - 0.8 07/22 MH [facility] HEMATOLOGY Basophils # 0.1 K/CMM 0.0 - 0.2 07/22 MH [facility] HEMATOLOGY Eosinophils 0.4 % 0.0 - 4.0 07/22 [facility] HEMATOLOGY Basophils 0.5 % 0.0 - 1.0 07/22 [facility] HEMATOLOGY Monocytes 3.2 % 2.0 - 12.0 07/22 [facility] HEMATOLOGY Segs-Bands # 11.9 K/CMM 1.5 - 8.1 07/22 [facility] HEMATOLOGY Segs 88.3 % 45.0 - 07/22 75.0 /2016 [facility] HEMATOLOGY Lymphocytes 7.6 % 20.0 - 07/22 40.0 [facility] Chest 1view Chest 1view Clinical History : , - Undifferentiated Sepsis 07/21 - DX - [facility] Exam : Portable AP view of the [...] Date Comments Source Respitory Rate 18 07/22/2016 [facility] Systolic (mm Hg) 108 07/22/2016 [facility] Diastolic (mm Hg) 49 07/22/2016 [facility] Systolic (mm Hg) 109 07/22/2016 [facility] Diastolic (mm Hg) 43 07/22/2016 [facility] Respitory Rate 16 07/22/2016 [facility] Systolic (mm Hg) 119 07/22/2016 [facility] Diastolic (mm Hg) 65 07/22/2016 [facility] Respitory Rate 18 07/22/2016 [facility] BMI Calculated 46.96 07/22/2016 [facility] Weight 112.727 07/22/2016 [facility] Height 154.94 cm 07/22/2016 [facility] Temperature Oral (F) 100.2 F 07/22/2016 [facility] Heart Rate 129 07/22/2016 [facility] Encounters Location Location Encounter Encounter Reason Attending ADM DC Status Source Details Type Number For Provider Date Date Visit [facility] Emergency [id number] Adam 07/22 07/22 Stephon [place] /2016 [facility] Procedures Procedure Code Date Perfomer Comments Source
--- NOTE | 2018-05-09 15:54 | RAD REPORT ---
EXAM DESCRIPTION: CT - Head Brain Wo Cont - 05/09/2018 3:46 pm CLINICAL HISTORY: Headache COMPARISON: None. TECHNIQUE: Computed axial tomography of the head was obtained. IV contrast was not requested. All CT scans are performed using dose optimization technique as appropriate and may include automated exposure control or mA/KV adjustment according to patient size. FINDINGS: An intracranial bleed is not seen . The ventricles are normal in caliber. No extra-axial fluid collection is noted. Fluid within the sinuses/ mastoids is not seen. IMPRESSION: No acute intracranial abnormality is seen. If patient's symptoms persist MRI of the bra in would be recommended.
[2018-05-09] MEDS ORDERED: DIPHENHYDRAMINE 50 MG/ML VIAL ONE (16:00)
[2018-05-09] MEDS ORDERED: METOCLOPRAMIDE 10 MG/2mL INJ ONE (16:00)
[2018-05-09] MEDS ORDERED: KETOROLAC 30 MG/ML INJ ONE (16:00)
--- NOTE | 2018-05-09 16:36 | ER ---
Nurse's Notes [facility] Name: Willow Guerrero Age: 52 yrs Sex: Female : 1965 Arrival Date: 05/09/2018 Time: 13:50 Bed 18 Private MD: Juanita De C Diagnosis: Headache;Strain of muscle, fascia and tendon at neck level Presentation: 05/09 14:22 Presenting complaint: Patient states: "I've had a migraine since Friday". Pt reports aa5 nausea. Transition of care: patient was not received from another setting of care. Onset of symptoms was April 2018. Risk Assessment: Do you want to hurt yourself or someone else? Patient reports no desire to harm self or others. Initial Sepsis Screen: Does the patient meet any 2 criteria? No. Patient's initial sepsis screen is negative. Does the patient have a suspected source of infection? No. Patient's initial sepsis screen is negative. Care prior to arrival: None. 14:22 Method Of Arrival: Ambulatory aa5 14:22 Acuity: HERBERT 3 aa5 Triage Assessment: 14:30 General: Appears in no apparent distress. uncomfortable, Behavior is cooperative, bp appropriate for age, anxious. Pain: Complains of pain in head. 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 - Social history:: Smoking status: Patient/guardian denies using tobacco. - Ebola Screening: : No symptoms or risks identified at this time. Screenin:30 Abuse screen: Denies threats or abuse. Denies injuries from another. Nutritional bp screening: No deficits noted. Tuberculosis screening: No symptoms or risk factors identified. Fall Risk None identified. Assessment: 14:30 General: Appears in no apparent distress. uncomfortable, Behavior is cooperative, bp appropriate for age, anxious. Pain: Complains of pain in head. Neuro: Level of Consciousness is awake, alert, obeys commands, Oriented to person, place, time, situation, Appropriate for age. Cardiovascular: No deficits noted. Respiratory: Airway is patent Respiratory effort is even, unlabored, Respiratory pattern is regular, symmetrical. GI: No signs and/or symptoms were reported involving the gastrointestinal system. : No signs and/or symptoms were reported regarding the genitourinary system. EENT: No deficits noted. Derm: No deficits noted. Musculoskeletal: Circulation, motion, and sensation intact. Range of motion: intact in all extremities. 16:01 Reassessment: PT RETURNED FROM CT. ALL CURRENT ORDERS COMPLETED. bp 16:52 Reassessment: PT D/C HOME VIA W/C WITH FAMILY, DX WITH HEADACHE. bp Vital Signs: 14:23 BP 131 / 79; Pulse 106; Resp 18 S; Temp 97.7(TE); Pulse Ox 97% on R/A; Weight 123.38 kg aa5 (R); Height 5 ft. 1 in. (154.94 cm) (R); Pain 8/10; 16:00 BP 128 / 57; Pulse 101; Resp 16; Pulse Ox 97% ; bp 16:40 BP 113 / 53; Pulse 89; Resp 12; Temp 97.9; Pulse Ox 97% on R/A; Pain 2/10; ch 14:23 Body Mass Index 51.39 (123.38 kg, 154.94 cm) aa5 ED Course: 13:50 Patient arrived in ED. rg4 13:51 Juanita De MD is Private Physician. rg4 14:22 Triage completed. aa5 14:23 Arm band placed on. aa5 14:30 Patient has correct armband on for positive identification. Bed in low position. Call bp light in reach. Side rails up X2. 14:42 Dc Rincon NP is PHCP. pm1 14:42 Mitchel Silvestre MD is Attending Physician. pm1 14:49 Vincenzo Milan, ARMAAN is Primary Nurse. bp 15:[address] kw1 15:47 CT Head Brain wo Cont In Process Unspecified. EDMS 15:59 Inserted saline lock: 20 gauge in right antecubital area, using aseptic technique. bp Blood collected. 16:35 Zelalem Gustafson MD is Referral Physician. pm1 16:40 No apparent distress. Resting quietly. ch 16:40 Pulse ox on. NIBP on. Warm blanket given. ch 16:40 No provider procedures requiring assistance completed. ch 16:52 IV discontinued, intact, bleeding controlled, No redness/swelling at site. Pressure bp dressing applied. Administered Medications: 15:59 Drug: Reglan 10 mg Route: IVP; Site: right antecubital; bp 16:40 Follow up: Response: No adverse reaction; Marked relief of symptoms ch 15:59 Drug: TORadol 30 mg Route: IVP; Site: right antecubital; bp 16:40 Follow up: Response: No adverse reaction; Marked relief of symptoms ch 15:59 Drug: Benadryl 25 mg Route: IVP; Site: right antecubital; bp 16:40 Follow up: Response: No adverse reaction; Marked relief of symptoms ch Outcome: 16:35 Discharge ordered by MD. pm1 16:53 Discharged to home via wheelchair, with family. bp 16:53 Condition: stable 16:53 Discharge instructions given to patient, Instructed on discharge instructions, follow up and referral plans. medication usage, Demonstrated understanding of instructions, follow-up care, medications, Prescriptions given X 1. 16:53 Patient left the ED. bp Signatures: Dispatcher [employer] EDBere Quesada, RN RN Gillian Davidson RN RN aa5 Dc Rincon NP CLINICAL PROGRAM COORDINATOR pm1 Elmira Roberts4 Vincenzo Milan RN RN bp Arlen Garcia kw1
--- NOTE | 2018-05-09 16:36 | EDPHYS ---
Physician Documentation [facility] Name: Willow Guerrero Age: 52 yrs Sex: Female : 1965 Arrival Date: 05/09/2018 Time: 13:50 Bed 18 Private MD: Juanita De C ED Physician Mitchel Silvestre HPI: 05/09 15:48 This 52 yrs old Female presents to ER via Ambulatory with complaints of pm1 Migraine. 15:48 The patient complains of pain to the left eye and left side of head. The patient pm1 describes the headache as aching, constant. Onset: The symptoms/episode began/occurred 4 day(s) ago. Associated signs and symptoms: Pertinent positives: left sided neck pain, Pertinent negatives: dizziness, fever, nausea, paresthesias, Photophobia rash, sinus congestion, sinus tenderness, vision changes, vision loss, vomiting, weakness, vertigo. Severity of symptoms: in the emergency department the pain is unchanged. Headache History: The patient has had previous headaches and this one is similar to previous episodes, and this one is more severe than previous episodes. The symptoms are alleviated by. The patient has been recently seen by a physician: Dr. Gustafson on with similar presenting complaints, given sample of diclofenac. 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 - Social history:: Smoking status: Patient/guardian denies using tobacco. - Ebola Screening: : No symptoms or risks identified at this time. ROS: 15:48 Constitutional: Negative for fever, chills, and weight loss, Eyes: Negative for injury, pm1 pain, redness, and discharge, ENT: Negative for injury, pain, and discharge. 15:48 Cardiovascular: Negative for chest pain, palpitations, and edema, Respiratory: Negative for shortness of breath, cough, wheezing, and pleuritic chest pain, Abdomen/GI: Negative for abdominal pain, nausea, vomiting, diarrhea, and constipation, Back: Negative for injury and pain, : Negative for injury, bleeding, discharge, and swelling, MS/Extremity: Negative for injury and deformity, Skin: Negative for injury, rash, and discoloration. 15:48 Neck: Positive for pain with movement, tenderness, Negative for bony tenderness. 15:48 Neuro: Positive for headache, Negative for dizziness, gait disturbance, numbness, tingling, weakness. Exam: 15:48 Constitutional: This is a well developed, well nourished patient who is awake, alert, pm1 and in no acute distress. 15:48 Eyes: Pupils equal round and reactive to light, extra-ocular motions intact. Lids and lashes normal. Conjunctiva and sclera are non-icteric and not injected. Cornea within normal limits. Periorbital areas with no swelling, redness, or edema. ENT: Nares patent. No nasal discharge, no septal abnormalities noted. Tympanic membranes are normal and external auditory canals are clear. Oropharynx with no redness, swelling, or masses, exudates, or evidence of obstruction, uvula midline. Mucous membranes moist. 15:48 Chest/axilla: Normal chest wall appearance and motion. Nontender with no deformity. No lesions are appreciated. Cardiovascular: Regular rate and rhythm with a normal S1 and S2. No gallops, murmurs, or rubs. Normal PMI, no JVD. No pulse deficits. Respiratory: Lungs have equal breath sounds bilaterally, clear to auscultation and percussion. No rales, rhonchi or wheezes noted. No increased work of breathing, no retractions or nasal flaring. 15:48 Back: No spinal tenderness. No costovertebral tenderness. Full range of motion. Skin: Warm, dry with normal turgor. Normal color with no rashes, no lesions, and no evidence of cellulitis. MS/ Extremity: Pulses equal, no cyanosis. Neurovascular intact. Full, normal range of motion. 15:48 Head/face: Noted is no obvious of injury or deformity except tenderness, of the with light palpation across scalp on the left side of head from forehead to occipital region. 15:48 Neck: External neck: tenderness, of the left trapezius, ROM/movement: Meningeal signs: are not present, Kernig's sign is negative, Brudzinski's sign is negative, nuchal rigidity, is not appreciated. 15:48 Abdomen/GI: Inspection: obese Palpation: abdomen is soft and non-tender, in all quadrants. 15:48 Neuro: Orientation: is normal, Motor: is normal, moves all fours. Vital Signs: 14:23 BP 131 / 79; Pulse 106; Resp 18 S; Temp 97.7(TE); Pulse Ox 97% on R/A; Weight 123.38 kg aa5 (R); Height 5 ft. 1 in. (154.94 cm) (R); Pain 8/10; 16:00 BP 128 / 57; Pulse 101; Resp 16; Pulse Ox 97% ; bp 16:40 BP 113 / 53; Pulse 89; Resp 12; Temp 97.9; Pulse Ox 97% on R/A; Pain 2/10; ch 14:23 Body Mass Index 51.39 (123.38 kg, 154.94 cm) aa5 MDM: 15:27 Patient medically screened. pm1 15:52 Data reviewed: vital signs. Data interpreted: Pulse oximetry: on room air is 97 %. pm1 Interpretation: normal. 16:34 Counseling: I had a detailed discussion with the patient and/or guardian regarding: the pm1 historical points, exam findings, and any diagnostic results supporting the discharge/admit diagnosis, radiology results, the need for outpatient follow up, to return to the emergency department if symptoms worsen or persist or if there are any questions or concerns that arise at home. 05/09 15:34 Order name: CT Head Brain wo Cont; Complete Time: 15:55 pm1 05/09 15:34 Order name: IV Saline Lock; Complete Time: 15:58 pm1 Administered Medications: 15:59 Drug: Reglan 10 mg Route: IVP; Site: right antecubital; bp 16:40 Follow up: Response: No adverse reaction; Marked relief of symptoms ch 15:59 Drug: TORadol 30 mg Route: IVP; Site: right antecubital; bp 16:40 Follow up: Response: No adverse reaction; Marked relief of symptoms ch 15:59 Drug: Benadryl 25 mg Route: IVP; Site: right antecubital; bp 16:40 Follow up: Response: No adverse reaction; Marked relief of symptoms ch Disposition: 18:05 Co-signature as Attending Physician, Mitchel Silvestre MD. ma2 Disposition: 05/09/18 16:35 Discharged to Home. Impression: Headache, Strain of muscle, fascia and tendon at neck level. - Condition is Stable. - Discharge Instructions: General Headache Without Cause, Muscle Strain. - Prescriptions for Fiorinal 50- 325-40 mg Oral Capsule - take 1 capsule by ORAL route every 4 hours As needed - not to exceed 6 capsules per day; 20 capsule. - Medication Reconciliation Form, Thank You Letter, Prescription Opioid Use form. - Follow up: Emergency Department; When: As needed; Reason: Worsening of condition. Follow up: Private Physician; When: 2 - 3 days; Reason: Recheck today's complaints, Continuance of care, Re-evaluation by your physician. Follow up: Zelalem Gustafson MD; When: 2 - 3 days; Reason: Recheck today's complaints, Continuance of care, Re-evaluation by your physician. - Problem is new. - Symptoms have improved. Signatures: Dispatcher [employer] EDMS Gillian Davidson RN RN aa5 Dc Rincon NP PATTERN CLEANER pm1 Vincenzo Milan RN RN bp Mitchel Silvestre MD MD ma2 Bere Cardenas RN Corrections: (The following items were deleted from the chart) 16:53 16:35 05/09/2018 16:35 Discharged to Home. Impression: Headache; Strain of muscle, bp fascia and tendon at neck level. Condition is Stable. Forms are Medication Reconciliation Form, Thank You Letter, Antibiotic Education, Prescription Opioid Use. Follow up: Emergency Department; When: As needed; Reason: Worsening of condition. Follow up: Private Physician; When: 2 - 3 days; Reason: Recheck today's complaints, Continuance of care, Re-evaluation by your physician. Follow up: Zelalem Gustafson; When: 2 - 3 days; Reason: Recheck today's complaints, Continuance of care, Re-evaluation by your physician. Problem is new. Symptoms have improved. pm1
[2018-05-09 17:50] VITALS: O2SAT 97
[2018-05-09 17:52] VITALS: BP 113/53; TEMP 97.9
== END 2018-05-09 16:53 | disposition home or self-care (01) ==
LOC: ER 13:48
DX: S16.1XXA Strain of muscle, fascia and tendon at neck level, initial encounter (principal); Z88.0 Allergy status to penicillin
CPT/HCPCS: 70450; 96374; 96375; 99284; J2765

== ENCOUNTER 2019-03-26 10:09 | Emergency (ER) | payer BC ==
[2019-03-26] MEDS ORDERED: HYDROCODONE/APAP 5/325 MG TAB ONE (10:55)
[2019-03-26] MEDS ORDERED: ONDANSETRON 4 MG (ODT) TAB ONE (10:55)
--- NOTE | 2019-03-26 12:19 | RAD REPORT ---
EXAM DESCRIPTION: RAD - Humerus Right - 03/26/2019 12:08 pm CLINICAL HISTORY: Slip and fall, right arm pain COMPARISON: None. FINDINGS: No fracture is identified. There is no dislocation or periosteal reaction noted. No foreig n body or other soft tissue abnormality. IMPRESSION: Negative right humerus examination. Right shoulder is further detailed in separate repor t.
--- NOTE | 2019-03-26 12:20 | RAD REPORT ---
EXAM DESCRIPTION: Shoulder Right 2 View - 03/26/2019 12:08 pm CLINICAL HISTORY: Slip and fall, right shoulder pain COMPARISON: None. TECHNIQUE: Internal and external rotation views of the right shoulder were obtained. FINDINGS: No fracture or dislocation. Patient likely has some joint laxity. Acromial humeral joint s pace is normal range. Calcifications along the posterior humeral head are likely part of degenerative calcific tendinosis. AC joint is normal in appearance. No acute or suspicious findings. IMPRESSION: No fracture, dislocation or acute right shoulder finding. Calcific tendinitis/tendinosis findings.
--- NOTE | 2019-03-26 12:35 | EDPHYS ---
Physician Documentation [facility] Name: Willow Guerrero Age: 53 yrs Sex: Female : 1965 Arrival Date: 03/26/2019 Time: 10:11 Bed 18 Private MD: Juanita De C ED Physician Jason Albrecht HPI: 03/26 10:51 This 53 yrs old Female presents to ER via Ambulatory with complaints of Fall pm1 Injury, Right Arm Pain. 10:51 Details of fall: The patient fell from an upright position, while walking. Onset: The pm1 symptoms/episode began/occurred yesterday. Associated injuries: The patient sustained right bicep. Severity of symptoms: in the emergency department the symptoms are actually worse. The patient has not experienced similar symptoms in the past. The patient has been recently seen at an urgent care, [facility] prior to arrival. Instructed to report to the ER for evaluation. they performed X-rays and provided a CD. I am unable to view the images on the CD. Patient was walking and stumbled. She hit her right shoulder, right arm against the edge of the door frame. 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 LMP N/A - Hysterectomy aj1 Historical: - Allergies: 10:32 PENICILLINS; aj1 - Home Meds: 10:32 atorvastatin 40 mg Oral tab 1 tab once daily [Active]; gabapentin 100 mg Oral cap 2 aj1 caps 3 times per day [Active]; glimepiride 4 mg Oral tab 1 tab twice a day [Active]; Glipizide Oral [Active]; lisinopril 2.5 mg Oral tab 1 tab once daily [Active]; loratadine 10 mg Oral tab 1 tab once daily [Active]; metformin 1,000 mg Oral tab 1 tab 2 times per day [Active]; propranolol 10 mg Oral tab 1 tab daily [Active]; Tradjenta 5 mg Oral tab 1 tab once daily [Active]; Vitamin B-12 500 mcg Oral tab 1 tab daily [Active]; - PMHx: 10:32 Diabetes - NIDDM; High Cholesterol; Migraines; aj1 - Immunization history: Last tetanus immunization: < 5 years ago. - Social history:: Smoking status: Patient/guardian denies using tobacco. - Ebola Screening: : Patient denies travel to an Ebola-affected area in the 21 days before illness onset. ROS: 10:51 Constitutional: Negative for fever, chills, and weight loss, Eyes: Negative for injury, pm1 pain, redness, and discharge, ENT: Negative for injury, pain, and discharge, Neck: Negative for injury, pain, and swelling, Cardiovascular: Negative for chest pain, palpitations, and edema, Respiratory: Negative for shortness of breath, cough, wheezing, and pleuritic chest pain, Abdomen/GI: Negative for abdominal pain, nausea, vomiting, diarrhea, and constipation, Back: Negative for injury and pain, Skin: Negative for injury, rash, and discoloration, Neuro: Negative for headache, weakness, numbness, tingling, and seizure. 10:51 MS/extremity: Positive for pain, swelling, tenderness, of the right bicep, Negative for deformity, paresthesias, tingling. Exam: 10:51 Constitutional: This is a well developed, well nourished patient who is awake, alert, pm1 and in no acute distress. Head/Face: Normocephalic, atraumatic. Neck: Trachea midline, no thyromegaly or masses palpated, and no cervical lymphadenopathy. Supple, full range of motion without nuchal rigidity, or vertebral point tenderness. No Meningismus. Chest/axilla: Normal chest wall appearance and motion. Nontender with no deformity. No lesions are appreciated. Cardiovascular: Regular rate and rhythm with a normal S1 and S2. No gallops, murmurs, or rubs. Normal PMI, no JVD. No pulse deficits. Respiratory: Lungs have equal breath sounds bilaterally, clear to auscultation and percussion. No rales, rhonchi or wheezes noted. No increased work of breathing, no retractions or nasal flaring. Back: No spinal tenderness. No costovertebral tenderness. Full range of motion. Skin: Warm, dry with normal turgor. Normal color with no rashes, no lesions, and no evidence of cellulitis. 10:51 Musculoskeletal/extremity: Extremities: grossly normal except: noted in the right bicep: swelling, tenderness, noted in the anterior aspect of right shoulder and posterior aspect of right shoulder: no evidence of swelling, tenderness. 10:51 Neuro: Orientation: is normal, Motor: moves all fours, Sensation: is normal, no obvious gross deficits. Vital Signs: 10:29 BP 133 / 84; Pulse 68; Resp 18; Temp 97.2; Pulse Ox 96% on R/A; Weight 117.93 kg (R); aj1 Height 5 ft. 1 in. (154.94 cm) (R); Pain 4/10; 13:00 BP 132 / 82; Pulse 69; Resp 17; Temp 97.7; Pulse Ox 98% on R/A; Pain 3/10; sg 10:29 Body Mass Index 49.13 (117.93 kg, 154.94 cm) aj1 [place] Coma Score: 10:29 Eye Response: spontaneous(4). Verbal Response: oriented(5). Motor Response: obeys aj1 commands(6). Total: 15. Trauma Score (Adult): 10:29 Eye Response: spontaneous(1); Verbal Response: oriented(1); Motor Response: obeys aj1 commands(2); Systolic BP: > 89 mm Hg(4); Respiratory Rate: 10 to 29 per min(4); [place] Score: 15; Trauma Score: 12 MDM: 10:36 Patient medically screened. pm1 10:51 Data reviewed: vital signs. Data interpreted: Pulse oximetry: on room air is 96 %. pm1 Interpretation: normal. 12:33 Counseling: I had a detailed discussion with the patient and/or guardian regarding: the pm1 historical points, exam findings, and any diagnostic results supporting the discharge/admit diagnosis, radiology results, the need for outpatient follow up, for definitive care, a orthopedic surgeon, to return to the emergency department if symptoms worsen or persist or if there are any questions or concerns that arise at home. 03/26 10:44 Order name: Shoulder Right (2 View) XRAY; Complete Time: 12:26 pm1 03/26 10:44 Order name: Humerus Right XRAY; Complete Time: 12:20 pm1 03/26 10:44 Order name: Sling; Complete Time: 12:44 pm1 Administered Medications: 10:56 Drug: [place] 5 mg-325 mg 1 tabs Route: PO; sg 10:57 Drug: Zofran 4 mg Route: PO; sg Disposition: 15:13 Co-signature as Attending Physician, Jason Albrecht MD I agree with the assessment and theo plan of care. Disposition: 01/17/20 12:34 Discharged to Home. Impression: Pain in right shoulder, Pain in right upper arm, Contusion of right upper arm. - Condition is Stable. - Discharge Instructions: Contusion, Shoulder Pain, How to Use a Sling. - Prescriptions for Tramadol 50 mg Oral Tablet - take 1 tablet by ORAL route every 8 hours As needed as needed; 15 tablet. - Medication Reconciliation Form, Thank You Letter, Antibiotic Education, Prescription Opioid Use, Work release form form. - Follow up: Emergency Department; When: As needed; Reason: Worsening of condition. Follow up: Mahad Begum MD; When: 2 - 3 days; Reason: Recheck today's complaints, Continuance of care, Re-evaluation by your physician. - Problem is new. - Symptoms have improved. Signatures: Dispatcher [employer] EDElla Esquivel RN RN aj1 Riki Shanks RN RN sg Jason Albrecht MD MD cha Marinas, Patrick, FAMILY SERVICE ASSISTANT FAMILY SERVICE ASSISTANT pm1 Alicia Britton RN RN hb Corrections: (The following items were deleted from the chart) 13:09 12:34 03/26/2019 12:34 Discharged to Home. Impression: Pain in right shoulder; Pain in hb right upper arm; Contusion of right upper arm. Condition is Stable. Forms are Medication Reconciliation Form, Thank You Letter, Antibiotic Education, Prescription Opioid Use. Follow up: Emergency Department; When: As needed; Reason: Worsening of condition. Follow up: Dr. Mahad Begum; When: 2 - 3 days; Reason: Recheck today's complaints, Continuance of care, Re-evaluation by your physician. Problem is new. Symptoms have improved. pm1
--- NOTE | 2019-03-26 12:35 | ER ---
Nurse's Notes [facility] Name: Willow Guerrero Age: 53 yrs Sex: Female : 1965 Arrival Date: 03/26/2019 Time: 10:11 Bed 18 Private MD: Juanita De C Diagnosis: Pain in right shoulder;Pain in right upper arm;Contusion of right upper arm Presentation: 03/26 10:26 Presenting complaint: Patient states: "Yesterday I slipped and fell and hit my shoulder aj1 (right), I just thought I had bumped or bruised it but its just kept hurting and its swollen up there and as the day when on I started losing some of my range of motion and last night I couldn't sleep and instead of feeling better its just hurting worse" Patient states that she was seen at [facility] and she was told they think she may have partially dislocated it and to come to the emergency room. Care prior to arrival: None. Mechanism of Injury:. 10:26 Acuity: HERBERT 3 aj1 10:26 Method Of Arrival: Ambulatory aj1 10:29 Trauma event details: Injury occurred in the [facility]. aj1 10:30 Transition of care: patient was not received from another setting of care. Onset of aj1 symptoms was 2019. Risk Assessment: Do you want to hurt yourself or someone else? Patient reports no desire to harm self or others. Initial Sepsis Screen: Does the patient meet any 2 criteria? No. Patient's initial sepsis screen is negative. Does the patient have a suspected source of infection? No. Patient's initial sepsis screen is negative. Triage Assessment: 10:32 General: Appears in no apparent distress. uncomfortable, Behavior is calm, cooperative, aj1 appropriate for age. Pain: Complains of pain in posterior aspect of right shoulder. Neuro: Level of Consciousness is awake, alert, obeys commands. Cardiovascular: Patient's skin is warm and dry. Respiratory: Airway is patent Respiratory effort is even, unlabored, Respiratory pattern is regular, symmetrical. 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 LMP N/A - Hysterectomy aj1 Historical: - Allergies: 10:32 PENICILLINS; aj1 - Home Meds: 10:32 atorvastatin 40 mg Oral tab 1 tab once daily [Active]; gabapentin 100 mg Oral cap 2 aj1 caps 3 times per day [Active]; glimepiride 4 mg Oral tab 1 tab twice a day [Active]; Glipizide Oral [Active]; lisinopril 2.5 mg Oral tab 1 tab once daily [Active]; loratadine 10 mg Oral tab 1 tab once daily [Active]; metformin 1,000 mg Oral tab 1 tab 2 times per day [Active]; propranolol 10 mg Oral tab 1 tab daily [Active]; Tradjenta 5 mg Oral tab 1 tab once daily [Active]; Vitamin B-12 500 mcg Oral tab 1 tab daily [Active]; - PMHx: 10:32 Diabetes - NIDDM; High Cholesterol; Migraines; aj1 - Immunization history: Last tetanus immunization: < 5 years ago. - Social history:: Smoking status: Patient/guardian denies using tobacco. - Ebola Screening: : Patient denies travel to an Ebola-affected area in the 21 days before illness onset. Screenin:29 Abuse screen: Denies threats or abuse. Denies injuries from another. Tuberculosis aj1 screening: No symptoms or risk factors identified. 14:15 Nutritional screening: No deficits noted. Fall Risk None identified. Primary Survey: 10:29 NO uncontrolled hemorrhage observed. A: The patient is alert. Airway: patent. aj1 Breathing/Chest: Respiratory pattern: regular, Respiratory effort: spontaneous, unlabored. Circulation: Skin color: pink. Disability Alert. Assessment: 11:43 Reassessment: Patient appears in no apparent distress at this time. xray at bedside at this time. Vital Signs: 10:29 BP 133 / 84; Pulse 68; Resp 18; Temp 97.2; Pulse Ox 96% on R/A; Weight 117.93 kg (R); aj1 Height 5 ft. 1 in. (154.94 cm) (R); Pain 4/10; 13:00 BP 132 / 82; Pulse 69; Resp 17; Temp 97.7; Pulse Ox 98% on R/A; Pain 3/10; sg 10:29 Body Mass Index 49.13 (117.93 kg, 154.94 cm) aj1 [place] Coma Score: 10:29 Eye Response: spontaneous(4). Verbal Response: oriented(5). Motor Response: obeys aj1 commands(6). Total: 15. Trauma Score (Adult): 10:29 Eye Response: spontaneous(1); Verbal Response: oriented(1); Motor Response: obeys aj1 commands(2); Systolic BP: > 89 mm Hg(4); Respiratory Rate: 10 to 29 per min(4); [place] Score: 15; Trauma Score: 12 ED Course: 10:11 Patient arrived in ED. mr 10:12 Juanita De MD is Private Physician. mr 10:29 Triage completed. aj1 10:29 Patient has correct armband on for positive identification. aj1 10:29 Patient maintains SpO2 saturation greater than 95% on room air. aj1 10:32 Arm band placed on Patient placed in an exam room. aj1 10:36 Dc Rincon NP is PHCP. pm1 10:36 Jason Albrecht MD is Attending Physician. pm1 10:40 Riki Shanks RN is Primary Nurse. sg 12:09 Shoulder Right (2 View) XRAY In Process Unspecified. EDMS 12:09 Humerus Right XRAY In Process Unspecified. EDMS 12:33 Mahad Begum MD is Referral Physician. pm1 12:50 Sling applied to right arm. sg 13:00 No provider procedures requiring assistance completed. Patient did not have IV access sg during this emergency room visit. Administered Medications: 10:56 Drug: [place] 5 mg-325 mg 1 tabs Route: PO; sg 10:57 Drug: Zofran 4 mg Route: PO; sg Outcome: 12:34 Discharge ordered by MD. pm1 13:00 Discharged to home ambulatory, with family. sg 13:00 Condition: good 13:00 Discharge instructions given to patient, Instructed on discharge instructions, follow up and referral plans. no drinking with medication, no driving heavy equipment, medication usage, safety practices, Demonstrated understanding of instructions, follow-up care, medications, Prescriptions given X 1. 13:09 Patient left the ED. hb Signatures: Dispatcher [employer] EDMS Ella Edwards RN RN aj1 Riki Shanks RN RN sg Rivera, Mary mr Dc Rincon NP PLYWOOD LAYUP LINE CORE LAYER pm1 Alicia Britton RN RN hb
[2019-03-26 13:23] VITALS: BP 133/84; TEMP 97.2; O2SAT 96
== END 2019-03-26 13:09 | disposition home or self-care (01) ==
LOC: ER 10:09
DX: S40.021A Contusion of right upper arm, initial encounter (principal); M25.511 Pain in right shoulder; W01.198A Fall on same level from slipping, tripping and stumbling with subsequent striking against other object, initial encounter; Y93.01 Activity, walking, marching and hiking; Y92.9 Unspecified place or not applicable; Z88.0 Allergy status to penicillin; E11.9 Type 2 diabetes mellitus without complications; E78.00 Pure hypercholesterolemia, unspecified
CPT/HCPCS: 99284

== ENCOUNTER 2020-12-25 21:01 | Observation (INO) | payer BC ==
[2020-12-25 22:20] LABS: Urine Blood 1+ (Negative); Urine Glucose 2+ (Negative); Urine Protein Negative (Negative); Urine pH 5.5 (5.0-7.0)
[2020-12-25 22:31] LABS: Urine Bacteria >50 /HPF (<20); Urine RBC <5 /HPF (NONE SEEN)
[2020-12-25] MEDS ORDERED: NA CHLORIDE 0.9% 500 ML ONE (22:46)
[2020-12-25] MEDS ORDERED: BENZONATATE 100 MG CAP PO ONE (22:46)
[2020-12-25] MEDS ORDERED: ONDANSETRON 4 MG/2 ML VIAL ONE (22:46)
[2020-12-25 23:00] LABS: Absolute Lymphocytes (CBC) 2.3 K/uL (0.7-4.9); Basophils % 0.6 % (0-1.3); Hematocrit 36.8 % (36.0-45.0); Lymphocytes % 15.8 % (15.3-44.8); MPV 8.3 fL (7.6-11.3); RBC Red Blood Cell Count 4.34 M/uL (3.86-4.86)
[2020-12-25 23:15] LABS: Bilirubin Direct 0.1 mg/dL (0-0.2); Bilirubin Total 0.5 mg/dL (0.2-1.0); Potassium 4.4 mmol/L (3.5-5.1); Protein, Total 7.4 g/dL (6.4-8.2)
[2020-12-25] MEDS ORDERED: NA CHLORIDE 0.9% 100 ML ONE (23:29)
[2020-12-25] MEDS ORDERED: CEFTRIAXONE 1000 MG/VIAL ONE (23:29)
--- NOTE | 2020-12-26 00:16 | ER ---
Nurse's Notes [facility] Name: Willow Guerrero Age: 55 yrs Sex: Female : 1965 Arrival Date: 12/25/2020 Time: 21:04 Bed 18 Private MD: Diagnosis: Calculus of kidney with calculus of ureter-left;Acute sinusitis, unspecified;Acute bronchitis, unspecified Presentation: 12/25 21:23 Chief complaint: Patient states: Pt states she has had coughing and congestion wg progressively getting worse since last . States she had a tele-health appointment with Dr. De and was told to come to the ER to r/o Covid. . Coronavirus screen: Vaccine status: Patient reports being unvaccinated. Ebola Screen: Patient negative for fever greater than or equal to 101.5 degrees Fahrenheit, and additional compatible Ebola Virus Disease symptoms Patient denies exposure to infectious person. Patient denies travel to an Ebola-affected area in the 21 days before illness onset. No symptoms or risks identified at this time. Initial Sepsis Screen: Does the patient meet any 2 criteria? No. Patient's initial sepsis screen is negative. Does the patient have a suspected source of infection? No. Patient's initial sepsis screen is negative. Risk Assessment: Do you want to hurt yourself or someone else? Patient reports no desire to harm self or others. Onset of symptoms was December 21, 2020. 21:23 Method Of Arrival: Ambulatory 21:23 Acuity: HERBERT 3 Triage Assessment: 21:27 General: Appears uncomfortable, obese, Behavior is calm, cooperative, appropriate for wg age. Pain: Complains of pain in Throat/Head (Sinus Area). Pain: Pain currently is 8 out of 10 on a pain scale. Quality of pain is described as pressure, Pain began. Respiratory: Reports cough that is non-productive, Airway is patent Trachea midline Respiratory effort is even, unlabored, Respiratory pattern is regular, symmetrical. 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 LMP N/A - Hysterectomy Historical: - Allergies: 21: PENICILLINS; wg - Home Meds: 12/26 02:24 atorvastatin 40 mg Oral tab 1 tab once daily [Active]; gabapentin 100 mg Oral cap 2 sj1 caps 3 times per day [Active]; lisinopril 2.5 mg Oral tab 1 tab once daily [Active]; loratadine 10 mg Oral tab 1 tab once daily [Active]; Tradjenta 5 mg Oral tab 1 tab once daily [Active]; Vitamin B-12 500 mcg Oral tab 1 tab daily [Active]; metformin 1,000 mg Oral tab 1 tab 2 times per day [Active]; Glipizide Oral [Active]; Rybelsus 7 mg oral tab 1 tab once daily [Active]; - PMHx: 12/25 21:27 Migraines; Diabetes - NIDDM; High Cholesterol; wg - Immunization history:: Adult Immunizations up to date. - Social history:: Smoking status: Patient uses alcohol, occasionally. Patient/guardian denies using street drugs, IV drugs. Screenin:24 Abuse screen: Denies threats or abuse. Denies injuries from another. Nutritional sj1 screening: No deficits noted. Tuberculosis screening: No symptoms or risk factors identified. Fall Risk None identified. Assessment: 23:24 General: Appears in no apparent distress. Behavior is calm, cooperative, appropriate sj1 for age. Neuro: No deficits noted. Cardiovascular: No deficits noted. Respiratory: EENT: Reports pain in throat. 23:26 Respiratory:. GI: No deficits noted. : No deficits noted. EENT: Throat painful sj1 swallowing. 12/26 01:10 Respiratory: Airway is patent Trachea midline Respiratory effort is even, unlabored, sj1 Respiratory pattern is regular, symmetrical. 01:13 Pain: Complains of pain in HEAD, THROAT, LLQ Pain currently is 7 out of 10 on a pain sj1 scale. at worst was 10 out of 10 on a pain scale. level that patient reports is acceptable is 7 out of 10 on a pain scale. Quality of pain is described as aching, dull, Pain began gradually. Derm: No deficits noted. 02:27 Reassessment: Patient appears in no apparent distress at this time. No changes from sj1 previously documented assessment. Vital Signs: 12/25 21:23 BP 136 / 78; Pulse 110; Resp 20; Temp 99.1; Pulse Ox 100% on R/A; Weight 116.12 kg; wg Height 5 ft. 1 in. (154.94 cm); Pain 7/10; 12/26 02:26 BP 108 / 72; Pulse 111; Resp 18 S; Temp 99(TE); Pulse Ox 97% on R/A; Pain 7/10; sj1 12/25 21:23 Body Mass Index 48.37 (116.12 kg, 154.94 cm) ED Course: 12/25 21:04 Patient arrived in ED. cf2 21:26 Triage completed. wg 21:27 Arm band placed on. wg 21:31 Epi Solano RN is Primary Nurse. wg 21:31 Jason Moss PA is PHCP. cp 21:31 Jason Albrecht MD is Attending Physician. cp 21:46 SARS-COV-2 RT PCR Sent. wg 21:56 Influenza Screen (a \T\ B) Sent. sj1 21:56 Strep Sent. sj1 22:10 XRAY Chest Pa And Lat (2 Views) In Process Unspecified. EDMS 22:25 CT Stone Protocol In Process Unspecified. EDMS 22:35 Urine Culture Sent. sj1 23:24 No provider procedures requiring assistance completed. Inserted saline lock: 20 gauge sj1 in right antecubital area, using aseptic technique. Blood collected. 12/26 00:14 Juanita De MD is Hospitalizing Provider. cp 00:44 Blood Culture Adult (2) Sent. sj1 00:44 Lactate Sent. sj1 00:45 Procalcitonin Sent. sj1 01:13 Patient has correct armband on for positive identification. Call light in reach. Side sj1 rails up X 1. 01:17 Throat Culture Sent. sj1 02:40 Patient admitted, IV remains in place. intact, No redness/swelling at site. sj1 Administered Medications: 12/25 22:34 Drug: Tessalon Perle (benzonatate) 200 mg Route: PO; sj1 12/26 01:18 Follow up: Response: No adverse reaction sj1 12/25 22:35 Not Given (Patient Refused): Zofran (Ondansetron) 4 mg IVP once; over 2 minutes sj1 22:35 Drug: NS 0.9% 500 ml Route: IV; Rate: bolus; Site: right antecubital; sj1 12/26 01:18 Follow up: Response: No adverse reaction; IV Status: Completed infusion sj1 12/25 23:24 Drug: Rocephin (cefTRIAXone) 1 grams Route: IV; Rate: calculated rate; Site: right sj1 antecubital; 12/26 01:18 Follow up: Response: No adverse reaction; IV Status: Completed infusion sj1 00:21 Not Given (Patient Refused): Reglan (metoCLOPramide) 10 mg IVP once; over 1 to 2 minutessj1 00:21 Not Given (Patient Refused): Tylenol 1000 mg PO once sj1 00:21 Not Given (Patient Refused): morphine 2 mg IVP once; (PAIN>8) RASS on ADMN: Combtv4, sj1 Very Agttd3, Agttd2, Rstlss1, AlertClm0, Drwsy-1, LtSdtn-2, ModSdtn-3, DpSdtn-4, UnArsble-5 x2 00:44 Drug: NS 0.9% 500 ml Route: IV; Rate: bolus; Site: right antecubital; sj1 01:17 Follow up: Response: No adverse reaction; IV Status: Completed infusion sj1 00:45 Drug: Flomax (tamsulosin) 0.4 mg Route: PO; sj1 01:17 Follow up: Response: No adverse reaction sj1 00:45 Drug: Magnesium Sulfate 1 grams Route: IVPB; Infused Over: 1 hrs; Site: right sj1 antecubital; 01:17 Follow up: Response: No adverse reaction; IV Status: Completed infusion sj1 Outcome: 00:15 Decision to Hospitalize by Provider. cp 02:40 Admitted to Med/surg via wheelchair, room 425. sj1 02:40 Condition: stable sj1 03:07 Admitted to Med/surg Report called to [facility] 03:25 Patient left the ED. 1 Signatures: Dispatcher [employer] EDMS Jason Moss PA PA cp Frazier, Celesta cf2 Epi Solano, So Mcbride RN RN sj1 Corrections: (The following items were deleted from the chart) 02:25 02:24 Home Meds: glimepiride 4 mg Oral tab 1 tab twice a day; sj1 sj1
--- NOTE | 2020-12-26 00:16 | EDPHYS ---
Physician Documentation [facility] Name: Willow Guerrero Age: 55 yrs Sex: Female : 1965 Arrival Date: 12/25/2020 Time: 21:04 Bed 18 Private MD: RENAN Physician Jason Albrecht HPI: 12/25 21:50 This 55 yrs old Female presents to ER via Ambulatory with complaints of Sore cp Throat, Hip Pain, Cough. 21:50 The patient presents with sore throat. cp 21:50 The patient describes throat pain as scratchy. Associated signs and symptoms: Pertinent cp positives: cough, earache, rhinorrhea, sinus pressure and sinus congestion. 21:52 The patient complains of pain in the left flank. cp 21:52 The pain radiates to the abdomen. Onset: The symptoms/episode began/occurred 5 day(s) cp ago. Patient reports history of kidney stones and pain to left flank feels similar. 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 - Hysterectomy wg Historical: - Allergies: 21:27 PENICILLINS; wg - Home Meds: 12/26 02:24 atorvastatin 40 mg Oral tab 1 tab once daily [Active]; gabapentin 100 mg Oral cap 2 sj1 caps 3 times per day [Active]; lisinopril 2.5 mg Oral tab 1 tab once daily [Active]; loratadine 10 mg Oral tab 1 tab once daily [Active]; Tradjenta 5 mg Oral tab 1 tab once daily [Active]; Vitamin B-12 500 mcg Oral tab 1 tab daily [Active]; metformin 1,000 mg Oral tab 1 tab 2 times per day [Active]; Glipizide Oral [Active]; Rybelsus 7 mg oral tab 1 tab once daily [Active]; - PMHx: 12/25 21:27 Migraines; Diabetes - NIDDM; High Cholesterol; wg - Immunization history:: Adult Immunizations up to date. - Social history:: Smoking status: Patient uses alcohol, occasionally. Patient/guardian denies using street drugs, IV drugs. ROS: 21:55 Constitutional: Positive for body aches, Negative for chills, fever, poor PO intake. cp 21:55 ENT: Positive for ear pain, rhinorrhea, sinus congestion, sinus pain, sore throat, cp Negative for drainage from ear(s), difficulty swallowing, difficulty handling secretions. 21:55 Cardiovascular: Negative for chest pain, palpitations. 21:55 Respiratory: Positive for cough, "sounds productive", Negative for shortness of breath, wheezing. 21:55 Abdomen/GI: Negative for vomiting, diarrhea, constipation. cp 21:55 Back: Positive for flank pain, on the left. 21:55 Neuro: Negative for altered mental status, headache, weakness. cp 21:55 All other systems are negative. Exam: 22:00 Constitutional: The patient appears in no acute distress, alert, awake, cp non-diaphoretic, non-toxic, well developed, well nourished, obese, uncomfortable. 22:00 Head/Face: Normocephalic, atraumatic. cp 22:00 Eyes: Periorbital structures: appear normal, Conjunctiva: normal, no exudate, no injection, Sclera: no appreciated abnormality, Lids and lashes: appear normal, bilaterally. 22:00 ENT: External ear(s): are unremarkable, Ear canal(s): are normal, clear, TM's: dullness, bilaterally, Nose: is normal, Mouth: Lips: moist, Oral mucosa: moist, Posterior pharynx: Airway: no evidence of obstruction, patent, Tonsils: no enlargement, no exudate, Uvula: midline, swelling, is not appreciated, erythema, that is mild, exudate, is not appreciated, Voice: is normal. 22:00 Neck: ROM/movement: is normal, is supple, without pain, no range of motions limitations, no meningismus. 22:00 Chest/axilla: Inspection: normal, Palpation: is normal, no crepitus, no tenderness. 22:00 Cardiovascular: Rate: tachycardic, Rhythm: regular, Edema: is not appreciated, JVD: is not appreciated. 22:00 Respiratory: the patient does not display signs of respiratory distress, Respirations: normal, no use of accessory muscles, no retractions, labored breathing, is not present, Breath sounds: bronchial sounds, that are mild, are heard diffusely, decreased breath sounds, are not appreciated, stridor, is not appreciated, + upper airway congestion. wheezing: is not appreciated. 22:00 Abdomen/GI: Inspection: obese Bowel sounds: active, Palpation: soft, in all quadrants, mild abdominal tenderness, in the anterior aspect of left lateral abdomen and left lower quadrant, rebound tenderness, is not appreciated, involuntary guarding, is not appreciated. 22:00 Back: CVA tenderness, is absent. 22:00 Neuro: Orientation: to person, place \\T\\ time. Mentation: is normal, Motor: moves all fours, strength is normal, Gait: is steady, at a normal pace, without difficulty. Vital Signs: 21:23 BP 136 / 78; Pulse 110; Resp 20; Temp 99.1; Pulse Ox 100% on R/A; Weight 116.12 kg; wg Height 5 ft. 1 in. (154.94 cm); Pain 7/10; 12/26 02:26 BP 108 / 72; Pulse 111; Resp 18 S; Temp 99(TE); Pulse Ox 97% on R/A; Pain 7/10; sj1 12/25 21:23 Body Mass Index 48.37 (116.12 kg, 154.94 cm) wg MDM: 12/25 21:40 Patient medically screened. theo 22:00 Differential diagnosis: nephrolithiasis, pyelonephritis, UTI, group A strep cp tonsillitis, mononucleosis, peritonsillar abscess retropharyngeal abcess upper respiratory infection. 23:00 Physician consultation: Dustin Aguilar MD was called at 23:00, was contacted at 23:00, regarding consult, patient's condition, and will see patient in inpatient room, tomorrow. 23:50 Data reviewed: vital signs, nurses notes, lab test result(s), radiologic studies, CT cp scan, plain films, I have discussed the patient's presentation/case with the attending Emergency Department Physician; and as a result, I will admit patient. 23:55 Test interpretation: by ED physician or midlevel provider: chest xray negative for cp focal pneumonia. 12/25 21:44 Order name: SARS-COV-2 RT PCR; Complete Time: 23:27 EDMS 12/25 21:48 Order name: Influenza Screen (a \\T\\ B) cp 12/25 21:48 Order name: Strep cp 12/25 21:48 Order name: Basic Metabolic Panel; Complete Time: 23:27 cp 12/25 23:27 Interpretation: Normal except: GLUC 249; GFR 86. cp 12/25 21:48 Order name: CBC with Diff; Complete Time: 23:27 12/25 23:27 Interpretation: Normal except: WBC 14.70; HGB 11.9; NEUT A 10.8. 12/25 21:48 Order name: Hepatic Function; Complete Time: 23:27 12/25 23:42 Interpretation: Normal except: ALB 3.0; GLOB 4.4; A/G 0.7. 12/25 21:48 Order name: Lipase; Complete Time: 23:27 12/25 23:28 Interpretation: Abnormal: LIP 763. 12/25 21:48 Order name: Urine Microscopic Only; Complete Time: 22:46 12/25 22:46 Interpretation: Normal except: UWBC 10-20; UBACT >50. 12/25 21:48 Order name: Influenza Screen (A [facility] 12/25 22:20 Order name: Urine Dipstick-Ancillary; Complete Time: 22:46 [facility] 12/25 23:43 Interpretation: Normal except: UGLUC 2+; UKET Trace; UBLD 1+. 12/25 22:32 Order name: Urine Culture [facility] 12/25 23:50 Order name: Lactate 12/25 23:50 Order name: Procalcitonin 12/25 21:48 Order name: XRAY Chest Pa And Lat (2 Views) 12/25 21:48 Order name: CT Stone Protocol 12/25 23:50 Order name: Blood Culture Adult (2) 12/26 00:41 Order name: Throat Culture [facility] 12/26 01:52 Order name: Basic Metabolic Panel [facility] 12/26 01:52 Order name: Basic Metabolic Panel [facility] 12/26 01:52 Order name: Lipase [facility] 12/26 01:52 Order name: CBC with Automated Diff [facility] 12/26 01:52 Order name: CBC with Automated Diff [facility] 12/26 01:52 Order name: Lipase [facility] 12/26 01:52 Order name: Liver (Hepatic) Function [facility] 12/26 01:52 Order name: Liver (Hepatic) Function [facility] 12/25 21:48 Order name: IV Saline Lock; Complete Time: 22:34 12/25 21:48 Order name: Labs collected and sent; Complete Time: 22:34 12/25 21:48 Order name: Urine Dipstick-Ancillary (obtain specimen); Complete Time: 22:35 cp 12/26 01:52 Order name: NPO EDMS Administered Medications: 22:34 Drug: Tessalon Perle (benzonatate) 200 mg Route: PO; 1 12/26 01:18 Follow up: Response: No adverse reaction sj1 12/25 22:35 Not Given (Patient Refused): Zofran (Ondansetron) 4 mg IVP once; over 2 minutes sj1 22:35 Drug: NS 0.9% 500 ml Route: IV; Rate: bolus; Site: right antecubital; 1 12/26 01:18 Follow up: Response: No adverse reaction; IV Status: Completed infusion sj1 12/25 23:24 Drug: Rocephin (cefTRIAXone) 1 grams Route: IV; Rate: calculated rate; Site: right sj antecubital; 12/26 01:18 Follow up: Response: No adverse reaction; IV Status: Completed infusion sj1 00:21 Not Given (Patient Refused): Reglan (metoCLOPramide) 10 mg IVP once; over 1 to 2 minutessj1 00:21 Not Given (Patient Refused): Tylenol 1000 mg PO once sj1 00:21 Not Given (Patient Refused): morphine 2 mg IVP once; (PAIN>8) RASS on ADMN: Combtv4, sj1 Very Agttd3, Agttd2, Rstlss1, AlertClm0, Drwsy-1, LtSdtn-2, ModSdtn-3, DpSdtn-4, UnArsble-5 x2 00:44 Drug: NS 0.9% 500 ml Route: IV; Rate: bolus; Site: right antecubital; sj1 01:17 Follow up: Response: No adverse reaction; IV Status: Completed infusion sj1 00:45 Drug: Flomax (tamsulosin) 0.4 mg Route: PO; sj1 01:17 Follow up: Response: No adverse reaction sj1 00:45 Drug: Magnesium Sulfate 1 grams Route: IVPB; Infused Over: 1 hrs; Site: right sj antecubital; 01:17 Follow up: Response: No adverse reaction; IV Status: Completed infusion sj1 Disposition: 00:30 Chart complete. cp Disposition Summary: 12/26/20 00:15 Hospitalization Ordered Hospitalization Status: Inpatient Admission cp Provider: Juanita De cp Location: Telemetry/MedSurg (Inpatient) cp Condition: Stable cp Problem: new cp Symptoms: have improved cp Bed/Room Type: Standard cp Room Assignment: 425(12/26/20 02:30) cg Diagnosis - Calculus of kidney with calculus of ureter - left cp - Acute sinusitis, unspecified cp - Acute bronchitis, unspecified cp Forms: - Medication Reconciliation Form cp - SBAR form cp Addendum: 12/27/2020 10:05 Co-signature as Attending Physician, Jason Albrecht MD I agree with the assessment and c morales plan of care. Signatures: Dispatcher [employer] EDVA Jason Albrecht MD MD cha Page, Corey, PA PA cp Oumou Roberts, ARMAAN RN Epi Yen RN oS Edwards RN RN sj1 Corrections: (The following items were deleted from the chart) 12/25 21:44 21:31 CORONAVIRUS+MR.LAB.BRZ ordered. [facility] 12/26 02:25 02:24 Home Meds: glimepiride 4 mg Oral tab 1 tab twice a day; sj1 sj1 02:30 00:15 cp cg
[2020-12-26] MEDS ORDERED: CEFTRIAXONE 1000 MG/VIAL ONE (00:50)
[2020-12-26] MEDS ORDERED: NA CHLORIDE 0.9% 500 ML ONE (00:50)
[2020-12-26] MEDS ORDERED: TAMSULOSIN 0.4 MG SR CAP ONE (00:50)
[2020-12-26] MEDS ORDERED: Magnesium Sulfate 2gm IVPB 2 G/50 ML BAG IV ONE (00:51)
[2020-12-26] MEDS ORDERED: ACETAMINOPHEN 500 MG TAB PO PRN (01:46)
[2020-12-26] MEDS ORDERED: ONDANSETRON 4 MG/2 ML VIAL IV PRN (01:46)
[2020-12-26] MEDS ORDERED: MORPHINE 2 MG/ML SYR IV PRN (01:46)
[2020-12-26] MEDS ORDERED: ALBUTEROL 2.5 MG/3 ML NEB SOL NEB PRN (01:49)
[2020-12-26] MEDS ORDERED: D50W 25 GM/50 ML SYRINGE IV PRN (01:53)
[2020-12-26] MEDS ORDERED: GLUCAGON 1 MG/VIAL IM PRN (01:53)
[2020-12-26 03:50] VITALS: BMI 48.3
[2020-12-26] MEDS ORDERED: MORPHINE 2 MG/ML SYR ONE (04:37)
[2020-12-26] MEDS: Levofloxacin500mg IV 500 MG/100 ML BAG IV SCH (07:51)
[2020-12-26] MEDS: INSULIN -REGULAR HUMAN 50 UNIT/0.5 ML ML SQ SCH ×4 (08:11→20:27)
[2020-12-26] MEDS: GABAPENTIN 100 MG CAP PO SCH ×3 (08:12→20:28)
[2020-12-26] MEDS ORDERED: CEFTRIAXONE 1 GM/NS 50 ML 1 GM/50 ML BAG IV SCH (09:00)
[2020-12-26] MEDS ORDERED: NA CHLORIDE 0.9% 1,000 ML ONE (12:17)
--- NOTE | 2020-12-26 12:54 | RAD REPORT ---
EXAM DESCRIPTION: RAD - Chest Pa And Lat (2 Views) - 12/25/2020 10:12 pm CLINICAL HISTORY: COUGH COMPARISON: Portable April 2015 TECHNIQUE: Frontal and lateral views of the chest were obtained. FINDINGS: The lungs are clear of a peripheral mass or consolidation. Interstitial pattern is promine nt. Comparison is difficult due to the substantial limitation of the prior study. Trachea is midline . Lower cervical fusion hardware in place. Heart size is normal and central vasculature is within nor mal limits. No pleural effusion or pneumothorax seen. No acute bony finding noted. No aortic abnor mality. IMPRESSION: No focal mass or consolidation seen. Interstitial markings are prominent throughout the lung nunez. Mild interstitial edema or infiltrate cannot be excluded.
[2020-12-26] MEDS ORDERED: LIDOCAINE 1% MPF 5 ML VIAL ONE (13:37)
[2020-12-26] MEDS ORDERED: FENTANYL CITR 100 MCG/2 ML ONE (13:37)
[2020-12-26] MEDS ORDERED: propofoL 200 MG/20 ML VIAL IV ONE (13:37)
--- NOTE | 2020-12-26 13:43 | HP ---
Date of Admission: 12/26/2020 Chief Complaint: Abdominal pain, cough, congestion, sore throat. History Of Present Illness: This is a 55-year-old female patient, who was evaluated yesterday via tele visit and she reported that as of 12/20/2020, she started to have left posterior and lateral flank pain. Subsequently, this pain has now moved to left lower quadrant of her abdomen. She denies any urinary frequency, burning on urination, or any hematuria. She has some nausea with this pain, but no vomiting. She has had low-grade fever of maximum temperature of 99.1 degrees Fahrenheit in the last few days. As of last 3 days, she is also having some cough, congestion, sore throat, and feels like she has some shortness of breath when she gets up and moves around with her oxygen saturation dropping as low as 89% and otherwise most of the time it is around 95% as she reports. She had COVID-19 illness in March of this year and she has decided so far not to get vaccinated for COVID-19. After I evaluated her via tele visit, she was advised to come to emergency room and after she was evaluated in the ER last night, she was admitted to the hospital. I saw her this morning. Allergies: TO PENICILLIN CAUSING THROAT CLOSING, SENSATION. Medications: She takes Fiorinal and she takes 1 capsule by mouth 4 times a day as needed for headache, atorvastatin 40 mg daily at bedtime, vitamin D3 5000 units daily, gabapentin 100 mg she takes 2 capsules by mouth 3 times a day, glimepiride 4 mg takes 1 tablet by mouth 2 times a day that is with breakfast and with supper, propranolol 10 mg 1 tablet by mouth daily at bedtime, metformin 1000 mg by mouth 2 times a day with breakfast and supper, lisinopril 2.5 mg by mouth daily, Tradjenta 5 mg by mouth daily, Rybelsus 7 mg by mouth daily, vitamin B12 500 mcg by mouth daily, Imitrex p.r.n. Review of Systems: Respiratory: As mentioned above. GI: As mentioned above. Genitourinary: As mentioned above. All other systems reviewed and negative. Past Medical History: Significant for COVID-19 illness on March 13, 2020, migraine, type 2 diabetes mellitus, hyperlipidemia, palpitation, gastroesophageal reflux disease, known alcoholic fatty liver disease, vitamin D deficient. Past Surgical History: Tonsillectomy, cholecystectomy, appendectomy, lithotripsy, and hysterectomy. Family History: Father , had blood clot. Mother had stroke and melanoma. Sister with migraines. Social History: Negative for smoking. Use of alcohol very rarely. Physical Examination: Vital Signs: Temperature 97.1, pulse 106, respiratory rate 20, blood pressure 132/70. Height 5 feet 1 inch, weight 256 pounds. General: Awake, alert, oriented, not in distress. HEENT: Head atraumatic, normocephalic. Conjunctivae nonerythematous. Sclerae white. Mouth, no thrush or edema noted. Ears/Nose, no mass, lesion, discharge noted. Neck: Supple. No JVD, lymph nodes, bruit, thyromegaly noted. Lungs: Bilateral good equal air entry. Clear to auscultation. No rhonchi. No rales. Heart: Normal heart sounds, no murmur or gallop. Abdomen: Soft, bowel sounds normal. No guarding, rigidity, tenderness, mass, hepatosplenomegaly, distention, or bruit noted. Extremities: No leg edema. No calf tenderness. Skin: No rash, ulcer, cellulitis. Lymphatics: No lymph node enlargement in neck, supraclavicular, infraclavicular region. Neuro: No focal neurological deficit. Chest: Unremarkable. External Genitalia: Deferred. Rectal: Deferred. Laboratory Data: White count 14.7, hemoglobin 11, platelets 354. Sodium 137, potassium 4.4, chloride 105, bicarb 25, BUN 11, creatinine 0.71, glucose 249. Liver function tests unremarkable. Lipase 763. Lactic acid 2.5. Procalcitonin less than 0.05. COVID-19 test negative. Urinalysis; 10-20 WBC, more than 50 bacteria, 2+ glucose. Impression: 1. Left-sided kidney stone with hydronephrosis. 2. Anemia, unspecified. 3. Type 2 diabetes mellitus, uncontrolled. 4. Hyperlipidemia. 5. Gastroesophageal reflux disease. 6. Nonalcoholic fatty liver disease. 7. Vitamin D deficiency. Plan: Admit the patient to hospital for further evaluation and management of this problem. The patient is appropriate for inpatient and is expected to spend 2 midnights in hospital. We will go ahead and keep her n.p.o. At this point, SCD will be ordered for DVT prophylaxis. Empiric antibiotic will be given. We will follow up on urine culture results, give pain medications per order. Home medications will be continued per order. Diabetes will be managed with sliding scale insulin. Consult urologist for evaluation of this kidney stone problem and details of plan of treatment discussed with her. ALYSIA/ANUP Voice ID: [id number] MTDD
--- NOTE | 2020-12-26 13:43 | HP ---
Date of Admission: 12/26/2020 ALYSIA/MODL Voice ID: [id number] MTDD
[2020-12-26] MEDS ORDERED: KETOROLAC 30 MG/ML INJ ONE (14:45)
[2020-12-26] MEDS ORDERED: HYDROCODONE/APAP 5/325 MG TAB PO PRN (14:49)
[2020-12-26] MEDS ORDERED: ONDANSETRON 4 MG/2 ML VIAL ONE (14:53)
[2020-12-26] MEDS ORDERED: PHENAZOPYRIDINE 100MG TAB PO ONE (15:00)
--- NOTE | 2020-12-26 15:23 | RAD REPORT ---
EXAM DESCRIPTION: RAD - Abdomen 1 View (KUB) - 12/26/2020 3:02 pm CLINICAL HISTORY: kidney stones COMPARISON: ABDOMEN 1 VIEW KUB dated 01/20/2015; Stone Protocol dated 12/25/2020 FINDINGS: Therefore KUB images obtained. Patient has bilateral nonobstructing calculi identifiable. CT showed a dominant 10-12 mm calcification at a pelvis calyx junction in the mid kidney on the right . This dominant stone is not distinguishable on KUB imaging. Patient also had a 9 x 6 mm calcificatio n in the distal left ureter. Based on the CT study this stone would be superimposed on the left sacra l ala and is not distinguishable on plain film. Stone may have migrated and passed or may be obscured by the sacral bone. Bowel gas pattern is non-specific. No obstruction, free air or pneumatosis. IMPRESSION: Dominant right renal pelvic calcification and distal left ureter calcification are not d istinguishable on this examination.
--- NOTE | 2020-12-26 15:28 | RAD REPORT ---
EXAM DESCRIPTION: RAD - Urethrocystogrphy Retrograde - 12/26/2020 2:56 pm FINDINGS: There were 6 portable KUB images obtained during fluoroscopic assisted placement of bilate ral ureteral stents. No suspicious or unexpected findings. Fluoro time was 19 seconds.
--- NOTE | 2020-12-26 16:46 | RAD REPORT ---
EXAM DESCRIPTION: CT - Stone Protocol - 12/26/2020 7:18 am CLINICAL HISTORY: FLANK PAIN COMPARISON: None Available. TECHNIQUE: CT of the abdomen and pelvis without IV contrast. Evaluation of the solid organs and vasc ulature is suboptimal due to lack of IV contrast. This exam was performed according to our department al dose-optimization program, which includes automated exposure control, adjustment of the mA and/or kV according to patient size and/or use of iterative reconstruction technique. FINDINGS: Lung Bases: The visualized lung bases are clear. Bones: Multilevel endplate spondylosis of the spine. Abdomen: Liver: Hepatomegaly and decreased density. The most superior aspect of the right hepatic lobe is not visualized on this study due to study collimation. Gallbladder: Prior cholecystectomy. Spleen, Pancreas, and Adrenal Glands: The spleen, pancreas, and adrenal glands are unremarkable. Kidneys: There is a 0.9 cm calculus in the distal left ureter producing minimal left hydronephrosis. Bilateral nonobstructing nephrolithiasis, the largest measuring 1.2 cm on the right. Vasculature: The aorta and IVC have normal caliber and position. Stomach: The stomach and duodenum have normal course. Small duodenal diverticulum. Other: No free intraperitoneal air. No free fluid or lymphadenopathy. Small fat-containing umbili bishop hernia. Scattered calcifications and fat stranding in the anterior abdominal wall subcutaneous so ft tissues of indeterminate etiology. Pelvis: Bladder: Urinary bladder is decompressed. Bowel: No dilated loops of large or small bowel. Scattered diverticula of the colon. Appendix: Normal appendix. Pelvis: Prior hysterectomy. IMPRESSION: 1. There is a 0.9 cm calculus in the distal left ureter producing minimal left hydrone phrosis. 2. Bilateral nonobstructing nephrolithiasis. 3. Hepatomegaly and hepatic steatosis. 4. Diverticulosis without evidence of acute diverticulitis. Electronically signed by: Paul Barnett 12/25/2020 10:53 PM CDT Due to temporary technical issues with the PACS/Fluency reporting system, reports are being signed by the in house radiologist without review as a courtesy to ensure prompt reporting. The interpreting r adiologist is fully responsible for the content of the report.
--- NOTE | 2020-12-26 17:13 | CON ---
Reason For Consultation: Obstructive ureterolithiasis and left flank pain. History Of Present Illness: Mrs. Guerrero presented to the emergency department last night with left flank pain that had been present since last week on Friday or Friday. The pain had decreased in intensity, but she spoke to her primary care physician, Dr. De, who recommended emergency departme nt evaluation as she also had signs and symptoms suggestive of a possible sinus infection. Upon eval uation in the emergency department, she was noted to have normal renal function. A CT scan was obtai july, which revealed a 9 mm calculus within the right renal pelvis and a 6 mm calculus within the mid left ureter. An additional smaller calculus was in the left kidney. As a result, for pain managemen t, the patient was admitted per Dr. De's directions and Urology was consulted for management of her stones. Past Medical History: 1.Uterine cancer. 2.Hyperlipidemia. 3.Type 2 diabetes. Past Surgical History: 1.Radical hysterectomy, open via midline incision. 2.Laparoscopic cholecystectomy. 3.Open appendectomy in 1991. Family History: She denies any family history of urologic malignancy. Social History: She denies any history of smoking. Physical Examination: General: The patient is well-appearing, moderately obese, but in no acute distress. Lungs: There was no dyspnea or signs of respiratory distress. Abdomen: Soft, nontender. The patient denied any associated fever or chills at home. Renal function was within normal limits with a mildly elevated white blood count. Assessment And Recommendations: Ms. Guerrero is a woman with a history of radical hysterectomy for u terine cancer along with type 2 diabetes, who is a recurrent stone former and has undergone multiple prior surgical interventions bilaterally, now with a nonobstructing right 9 mm renal pelvis calculus and 6 mm mid left ureteral obstructing calculus causing left flank pain. I counseled the patient that typically, had I seen her in an outpatient setting, I would recommend a KUB to assess for visibility of the nonobstructing right renal calculus and allow her up to 3-4 weeks to pass the 6 mm calculus in her left ureter since she has 40% to 50% chance of successful spontaneo us passage. I explained that if the stones were not visible on KUB on the right side, then it may ma ke sense to eventually place a stent and perform ureteroscopy with laser lithotripsy. Since she is a lready admitted with the hope for surgical intervention today, and since she was somewhat reticent to proceed with bilateral ureteral stent placement at this time, we discussed that were her right renal calculus to be in visible on KUB, she would require ureteroscopy and laser lithotripsy; so we would proceed today with cystoscopy and bilateral ureteral stent placement in preparation for bilateral ure teroscopy and laser lithotripsy in the near future. She was thus transferred to x-ray where a KUB wa s performed. VIOLA/ANUP Voice ID: [id number] Report ID: [id number]
--- NOTE | 2020-12-26 19:44 | OP ---
Date of Procedure: 12/26/2020 Surgeon: SYLVIE PEÑA Preoperative Diagnoses: 1.Bilateral nephrolithiasis. 2.Left obstructive ureterolithiasis. 3.Left flank pain. Postoperative Diagnoses: 1.Bilateral nephrolithiasis. 2.Left obstructive ureterolithiasis. 3.Left flank pain. Principal Procedures: 1.Cystoscopy. 2.Bilateral retrograde pyelography. 3.Bilateral ureteral stents placed. Indication For Procedure: Please see consultation report dictated. The patient underwent a KUB and followup to that consultation, which revealed relatively imperceptible calculi in the right kidney de spite the presence of a 9-11 mm stone within the renal pelvis/UPJ there. The left mid ureteral stone was also imperceptible on KUB. As a result, I counseled the patient that in the absence of visibili ty of the stone, we would be unable to perform shockwave lithotripsy, and in that case, we would ulti mately be required to perform ureteroscopy with laser lithotripsy. In that setting, it made sense to proceed with ureteral stents being placed today bilaterally so that we might perform bilateral or st aged ureteroscopy as necessary. She agreed. She also was consented in the preoperative holding area . Procedure In Detail: The patient was consented and then transferred to the operative suite where gen eral anesthesia was induced. She was already being given Levaquin 500 mg IV antimicrobial prophylaxi s, and pneumo boots were provided for DVT prophylaxis. She was placed in the lithotomy position, pad ded and secured to the table appropriately. Her genitalia were prepped using Hibiclens and she was d raped in standard fashion. The case was begun using a 22-Malaysian rigid cystoscope to traverse the ure thra and into the bladder. The bladder was surveyed, and there were no mucosal lesions, foreign bodi es or stones throughout. The ureteral orifices were orthotopic in location. The left ureteral orifi ce was cannulated first using the tip of a 5-Malaysian ureteral access catheter and a retrograde pyelogr am was performed. Left retrograde pyelography: Using a 70:30 mixture of Omnipaque and saline, contrast was injected via the lumen of the 5-Malaysian ur eteral access catheter and did propagate up what was a relatively nondilated collecting system before entering the renal pelvis and defining the calices. However, given the proximity of time to the sto ne being observed in the mid ureter and its size of 6 mm in axial dimension and 9 mm in coronal dimen danyelle, I then passed a Sensor wire with ease into the upper pole of the kidney. Over the Sensor wire, I then passed a 6-Malaysian by 24 cm double-J left ureteral stent. A coil was observed fluoroscopicall y in the upper pole and 1 cystoscopically was formed within the bladder. I then turned my attention to the right ureteral orifice, which was then cannulated using the tip of a 5-Malaysian ureteral access catheter. Again, contrast was injected via the 5-Malaysian ureteral access catheter to perform a right retrograde pyelogram. Right retrograde pyelography: Using the similar 70:30 mixture of Omnipaque and saline, the contrast was injected via the lumen of 5 -Malaysian ureteral access catheter and did propagate up into the renal pelvis and define the calices of a nondilated right collecting system. Via the 5-Malaysian ureteral access catheter, a Sensor wire was passed and coiled in the upper pole. The 5-Malaysian ureteral access catheter was removed, and a 6-Fren ch by 26 cm double-J right ureteral stent was then passed into the upper pole with a coil observed fl uoroscopically there. An additional coil was cystoscopically formed within the bladder. Her bladder was then decompressed of fluid and urine, and the case was terminated. The patient was then taken o ut of the lithotomy position, awakened from general anesthesia, transferred to a stretcher, and then transferred to the recovery room in good condition. Complications: None. Discharge Disposition: She should be scheduled to return to the operating room, preferably within e next 30 days for planned definitive bilateral ureteroscopy with laser lithotripsy and stent exchang e. This may need to be done in a staged procedure with the left side first and then the right, but w e may attempt both at the same time if feasible. Preoperative evaluation including respiratory evalu ation may be required given her morbid obesity and some anesthetic challenges during the initial case with oxygenation and use of an LMA. As a result, she likely will require general endotracheal intub ation on subsequent operative excursion. WR/MODL Voice ID: [id number] Report ID: [id number]
[2020-12-26] MEDS ORDERED: PROPRANOLOL HCL 10 MG TAB PO SCH (21:00)
[2020-12-27 04:24] LABS: Absolute Lymphocytes (CBC) 1.5 K/uL (0.7-4.9); Basophils % 0.3 % (0-1.3); Hematocrit 34.6 % (36.0-45.0); Lymphocytes % 9.6 % (15.3-44.8); MPV 8.1 fL (7.6-11.3); RBC Red Blood Cell Count 4.09 M/uL (3.86-4.86)
[2020-12-27 04:37] LABS: Bilirubin Direct 0.1 mg/dL (0-0.2); Bilirubin Total 0.7 mg/dL (0.2-1.0); Potassium 4.4 mmol/L (3.5-5.1); Protein, Total 7.3 g/dL (6.4-8.2)
[2020-12-27] MEDS: INSULIN -REGULAR HUMAN 50 UNIT/0.5 ML ML SQ SCH (07:30)
[2020-12-27 07:45] VITALS: BP 112/56; TEMP 97.2
[2020-12-27] MEDS: Levofloxacin500mg IV 500 MG/100 ML BAG IV SCH (08:10)
[2020-12-27] MEDS: GABAPENTIN 100 MG CAP PO SCH (08:10)
[2020-12-27 09:17] VITALS: O2SAT 93
--- NOTE | 2020-12-28 09:19 | DS ---
Date of Discharge: 12/27/2020 Disposition: Discharged to go home. Physical Examination: HEENT: Unremarkable. Lungs: Clear to auscultation. Heart: Sounds normal. Abdomen: Soft. Bowel sounds normal. No guarding, rigidity, tenderness, or distention. Extremities: No leg. Laboratory Data: Upon admission; white count 14.7, hemoglobin 11.9, platelets 354. Today; white cou nt 15.9, hemoglobin 11.2, and a platelet count 332. Upon admission; sodium 137, potassium 4.4, chlor daren 105, bicarb 25, BUN 11, creatinine 0.71, glucose 249, lactic acid 2.5, procalcitonin less than 0. 05. Lipase 763. Repeat blood work today on day of discharge shows lipase 91. Sodium 136, potassium 4.4, chloride 103, bicarb 27, BUN 11, creatinine 0.76, glucose 264. Liver function tests unremarkab le. Hospital Course: This is a 55-year-old female patient, admitted to the hospital with abdominal pain, cough, congestion, sore throat. Please see dictated H and P for more information. After I evaluate d the patient via tele visit, she was advised to come to the emergency room and after she was evaluat ed in the ER, she was admitted to the hospital with left-sided kidney stone with hydronephrosis. Aft er the patient was admitted to the hospital, she was kept n.p.o. Urology consultation from Dr. Bryan dumas was obtained and he did perform surgery where he did a cystoscopy and placement of stent in bilate ral ureters. After the procedure, the patient has started to feel much better. Her abdominal pain h as improved now. Denies any nausea, vomiting. She is tolerating diet very well. The patient was di scharged to go home today in stable and improved condition with following discharge medications and i nstructions. Final Diagnoses: 1.Left-sided kidney stone with hydronephrosis. 2.Anemia, unspecified. 3.Type 2 diabetes mellitus, uncontrolled. 4.Hyperlipidemia. 5.Gastroesophageal reflux disease. 6.Nonalcoholic fatty liver disease. 7.Vitamin D deficiency. Discharge Medications And Instructions: 1.Continue all prior home medications. 2.Take Levaquin 500 mg daily for 1 week and prescription was sent to her [facility] in [facility]. 3.Follow up at my office next week on Friday, which is 01/02/2021 at 10 a.m. 4.Follow up with Dr. Aguilar per his instruction. ALYSIA/MODL Voice ID: [id number] Report ID: [id number]
== END 2020-12-27 10:57 | disposition home or self-care (01) ==
LOC: ER 21:01 → 4TH 12-26 02:33 → INTOOBSV 12-26 02:33
PROVIDERS: ADMIT Internal Medicine; ATTEND Internal Medicine
PROC: BT14ZZZ Fluoroscopy of Kidneys, Ureters and Bladder (ICD-10-PCS; 2020-12-26)
PROC: 0T788DZ Dilation of Bilateral Ureters with Intraluminal Device, Via Natural or Artificial Opening Endoscopic (ICD-10-PCS; principal; 2020-12-26 12:15)
DX: N13.2 Hydronephrosis with renal and ureteral calculous obstruction (principal); D64.9 Anemia, unspecified; E11.9 Type 2 diabetes mellitus without complications; E78.5 Hyperlipidemia, unspecified; K21.9 Gastro-esophageal reflux disease without esophagitis; K76.0 Fatty (change of) liver, not elsewhere classified; E55.9 Vitamin D deficiency, unspecified; R05.9 Cough, unspecified; J02.9 Acute pharyngitis, unspecified; E78.00 Pure hypercholesterolemia, unspecified; G43.909 Migraine, unspecified, not intractable, without status migrainosus; Z86.16 Personal history of COVID-19; Z20.822 Contact with and (suspected) exposure to COVID-19; Z88.0 Allergy status to penicillin; Z85.42 Personal history of malignant neoplasm of other parts of uterus; Z90.710 Acquired absence of both cervix and uterus; Z90.49 Acquired absence of other specified parts of digestive tract; Z82.3 Family history of stroke; Z80.8 Family history of malignant neoplasm of other organs or systems
CPT/HCPCS: 87040 ×2; 87070; 87088; 85025 ×2; 87086; 80048 ×2; 36415 ×2; 82947 ×6; 80076 ×2; 87081; 83605 ×2; 83690 ×2; 84145; 87804 ×2; 76377; 74176; 74018; 71046; 74450; 51610; 94760 ×3; 99285; 52005; 52332; U0003; J2704; J3010; J2270 ×2; J3475; G0378 ×4; J7040 ×2; J7030; J2405 ×2; 81003; 81015

== ENCOUNTER 2020-12-29 19:07 | Inpatient (IN) | payer BC ==
[2020-12-29 20:04] LABS: Urine Blood 3+ (Negative); Urine Glucose 1+ (Negative); Urine Protein 3+ (Negative); Urine Specific Gravity >=1.030 (1.005-1.030)
--- NOTE | 2020-12-29 20:12 | RAD REPORT ---
EXAM DESCRIPTION: CT - Stone Protocol - 12/29/2020 8:02 pm CLINICAL HISTORY: Flank pain. ureteral stents;Flank pain;Kidney stones COMPARISON: <Comparisons> TECHNIQUE: Axial images were obtained without oral or IV contrast. Lack of contrast limits solid org an and vascular assessment. The [id number] spans the entirety of the system partially obscuring uppermost abdomen and lung bases. Coronal reformatted images were obtained and reviewed. All CT scans are performed using dose optimization technique as appropriate and may include automated exposure control or mA/KV adjustment according to patient size. FINDINGS: The lower lung nunez are clear. Mild diffuse fatty liver is seen. The spleen is normal.Cholecystectomy clips. The pancreas and adrena l glands are normal. No pathologic lymphadenopathy in the abdomen or pelvis. Right double-J stent is noted in place with proximal and distal aspects in expected location and posi tioning. 8 mm oblong calculus is seen adjacent to the stent in the right renal pelvis. Additional pun ctate calculi seen inferior right kidney. Left-sided double-J stent is also noted. 3 mm stone is seen along the course of the stent inferior le ft ureter. Multiple additional punctate left renal caliceal stones evident. No hydronephrosis evident. No bowel obstruction, free air, free fluid or abscess. The appendix is not identified as a discrete s tructure, however, no secondary findings of appendicitis are identified. No significant bony abnormality. IMPRESSION: Bilateral double-J stent in place without hydronephrosis. Calculi are present along the course of both stents as described. Punctate bilateral nephrolithiasis is present.
[2020-12-29 20:37] LABS: Absolute Lymphocytes (CBC) 2.7 K/uL (0.7-4.9); Basophils % 0.7 % (0-1.3); Hematocrit 36.1 % (36.0-45.0); Lymphocytes % 14.2 % (15.3-44.8); MPV 8.2 fL (7.6-11.3); RBC Red Blood Cell Count 4.25 M/uL (3.86-4.86)
[2020-12-29 21:03] LABS: Albumin 3.1 g/dL (3.4-5.0); Bilirubin Direct 0.1 mg/dL (0-0.2); Bilirubin Total 0.5 mg/dL (0.2-1.0); Potassium 4.1 mmol/L (3.5-5.1); Protein, Total 7.9 g/dL (6.4-8.2)
[2020-12-29] MEDS ORDERED: NA CHLORIDE 0.9% 1,000 ML ONE ×2 (21:08→23:38)
[2020-12-29] MEDS ORDERED: MORPHINE 4 MG/ML SYR ONE (21:08)
[2020-12-29] MEDS ORDERED: ONDANSETRON 4 MG/2 ML VIAL ONE (21:08)
[2020-12-29 21:27] LABS: Urine Bacteria 20-50 /HPF (<20); Urine Mucus 1+ /HPF (NONE SEEN); Urine RBC TNTC /HPF (NONE SEEN)
--- NOTE | 2020-12-29 21:57 | ER ---
Nurse's Notes [facility] Name: Willow Guerrero Age: 55 yrs Sex: Female : 1965 Arrival Date: 12/29/2020 Time: 19:17 Bed 19 Private MD: Diagnosis: Pyelonephritis acute;Calculus of kidney with calculus of ureter-With bilateral ureteral stents Presentation: 12/29 19:21 Chief complaint: Patient states: States she was recently admitted for kidney stones and wg had bilat stents put in. Pt states she has stones on both sides and has had flank pain since last night progressively getting worse. Pt also c/o of diarrhea that started last night. Coronavirus screen: Vaccine status: Patient reports being unvaccinated. Ebola Screen: Patient negative for fever greater than or equal to 101.5 degrees Fahrenheit, and additional compatible Ebola Virus Disease symptoms Patient denies exposure to infectious person. Patient denies travel to an Ebola-affected area in the 21 days before illness onset. No symptoms or risks identified at this time. Initial Sepsis Screen: Does the patient meet any 2 criteria? No. Patient's initial sepsis screen is negative. Does the patient have a suspected source of infection? No. Patient's initial sepsis screen is negative. Risk Assessment: Do you want to hurt yourself or someone else? Patient reports no desire to harm self or others. Onset of symptoms was December 28, 2020. 19:21 Method Of Arrival: Ambulatory 19:21 Acuity: HERBERT 3 wg Triage Assessment: 19:23 General: Appears uncomfortable, obese, Behavior is cooperative, appropriate for age, wg restless. Pain: Complains of pain in Bilat flank Pain currently is 10 out of 10 on a pain scale. Quality of pain is described as sharp. Cardiovascular: No deficits noted. Respiratory: No deficits noted. GI: Reports diarrhea. 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 - Post-menopause wg Historical: - Allergies: 19:23 PENICILLINS; wg - Home Meds: 19:23 Vitamin B-12 500 mcg Oral tab 1 tab daily [Active]; Rybelsus 7 mg Oral tab 1 tab once wg daily [Active]; Tradjenta 5 mg Oral tab 1 tab once daily [Active]; propranolol 10 mg Oral tab 1 tab daily [Active]; metformin 1,000 mg Oral tab 1 tab 2 times per day [Active]; loratadine 10 mg Oral tab 1 tab once daily [Active]; lisinopril 2.5 mg Oral tab 1 tab once daily [Active]; Glipizide Oral [Active]; atorvastatin 40 mg Oral tab 1 tab once daily [Active]; gabapentin 100 mg Oral cap 2 caps 3 times per day [Active]; - PMHx: 19:23 Diabetes - NIDDM; High Cholesterol; Migraines; wg - Immunization history:: Adult Immunizations up to date. - Social history:: Smoking status: Patient denies any tobacco usage or history of. Screenin:05 Abuse screen: Denies threats or abuse. Denies injuries from another. Nutritional dc2 screening: No deficits noted. Tuberculosis screening: No symptoms or risk factors identified. Never had TB. Possible symptoms: None. Fall Risk None identified. No fall in past 12 months (0 pts). Secondary diagnosis (15 points) No IV (0 pts). Ambulatory Aid- None/Bed Rest/Nurse Assist (0 pts). Gait- Normal/Bed Rest/Wheelchair (0 pts) Mental Status- Oriented to own ability (0 pts). Total Paulson Fall Scale indicates No Risk (0-24 pts). Assessment: 20:05 General: Appears in no apparent distress. uncomfortable, obese, well groomed, Behavior dc2 is calm, cooperative. Pain: Complains of pain in bilateral flanks that radiate to middle of pelvic area, denies nausea. 20:05 Neuro: No deficits noted. Respiratory: No deficits noted. Breath sounds are clear dc2 bilaterally. GI: No deficits noted. Bowel sounds present X 4 quads. Abdomen is tender to palpation in right and left flanks / pelvic area. : Reports. Derm: No deficits noted. Musculoskeletal: No deficits noted. No signs and/or symptoms reported regarding the musculoskeletal system. 23:21 Reassessment: Pt states feels like the pain is coming back and rates 7/10. Medicated dc2 with 4mg Morphine. 23:57 Reassessment: Report attempted, nurse unavailable, will call back. dc2 12/30 00:34 Reassessment: Floor called back, nurse did not get message about report. dc2 Vital Signs: 12/29 19:21 BP 141 / 63; Pulse 86; Resp 12; Temp 98.6; Pulse Ox 99% on R/A; Weight 121.56 kg; wg Height 5 ft. 1 in. (154.94 cm); Pain 10/10; 20:00 BP 149 / 59; Pulse 76; Resp 18; Pulse Ox 99% ; Pain 8/10; dc2 21:00 BP 119 / 52; Pulse 64; Resp 18; Pulse Ox 98% ; Pain 4/10; dc2 22:00 BP 104 / 59; Pulse 73; Resp 17; Pulse Ox 94% on R/A; Pain 2/10; dc2 23:00 BP 113 / 61; Pulse 66; Resp 16; Temp 97.2(O); Pulse Ox 96% ; Pain 7/10; dc2 12/30 00:00 BP 113 / 60; Pulse 67; Resp 16; Pulse Ox 95% on R/A; Pain 0/10; dc2 12/29 19:21 Body Mass Index 50.64 (121.56 kg, 154.94 cm) ED Course: 12/29 19:17 Patient arrived in ED. cf2 19:23 Triage completed. 19:23 Arm band placed on. 19:30 Max Moore MD is Attending Physician. 7 19:[address] via wheelchair. dc2 19:55 Jaclyn Reyes RN is Primary Nurse. dc2 20:02 CT Stone Protocol In Process Unspecified. EDMS 20:05 Patient moved back from CT. dc2 20:05 Patient has correct armband on for positive identification. Allergy band placed. Bed in co2 low position. Call light in reach. Side rails up X 1. radiation monitor on. Pulse ox on. NIBP on. Door closed. Lights dimmed. 20:05 No provider procedures requiring assistance completed. dc2 20:15 Inserted saline lock: 20 gauge in left antecubital area, using aseptic technique. Blood ds4 collected. 21:56 Juanita De MD is Hospitalizing Provider. [facility] 22:34 COVID-19 (Coronavirus) Document "Date of Onset" if Symptomatic Sent. dc2 22:34 Blood Culture Adult (2) Sent. dc2 12/30 00:00 IV is patent, is intact, Patient admitted, IV remains in place. bleeding controlled, No dc2 redness/swelling at site. Administered Medications: 12/29 20:15 Drug: NS 0.9% 1000 ml Route: IV; Rate: 1000 ml; Infused Over: 1 hrs; Site: left dc2 antecubital; Delivery: Primary tubing; 21:56 Follow up: IV Status: Completed infusion; IV Intake: 1000ml dc2 20:16 Drug: Zofran (Ondansetron) 4 mg Route: IVP; Site: left antecubital; dc2 21:03 Follow up: Response: No change in condition dc2 20:18 Drug: morphine 4 mg Route: IVP; Site: left antecubital; dc2 21:03 Follow up: Response: Pain is decreased dc2 22:22 Drug: LevaQUIN (levofloxacin) 500 mg Volume: 100 ml; Route: IVPB; Rate: 100 ml/hr; dc2 Infused Over: 60 mins; Site: left antecubital; Delivery: Primary tubing; 23:25 Follow up: IV Status: Completed infusion; IV Intake: 100ml dc2 23:30 Drug: Meropenem 1 grams Route: IV; Rate: per protocol; Infused Over: 1 hrs; Site: left dc2 antecubital; Delivery: Primary tubing; Intake: 21:56 IV: 1000ml; Total: 1000ml. dc2 23:25 IV: 100ml; Total: 1100ml. dc2 Outcome: 21:57 Decision to Hospitalize by Provider. [facility] 12/30 00:35 Admitted to Tele accompanied by nurse, via stretcher, room 217. dc2 Condition: stable Instructed on the need for admit. 00:35 Patient left the ED. dc2 Signatures: Dispatcher [employer] EDHuy Romero 4 Minnie Mehta 2 Max Moore MD MD [facility] Epi Solano RN Jaclyn Reyes RN RN dc2
--- NOTE | 2020-12-29 21:58 | EDPHYS ---
Physician Documentation [facility] Name: Willow Guerrero Age: 55 yrs Sex: Female : 1965 Arrival Date: 12/29/2020 Time: 19:17 Bed 19 Private MD: ED Physician Max Moore HPI: 12/29 19:45 This 55 yrs old Female presents to ER via Ambulatory with complaints of mh7 Possible Kidney Stone. 19:45 The patient complains of pain in the left flank and right flank. The pain radiates to mh7 the abdomen. Onset: The symptoms/episode began/occurred last night. Modifying factors: The symptoms are alleviated by nothing. the symptoms are aggravated by palpation/percussion. Associated signs and symptoms: Pertinent positives: diarrhea, dysuria, urinary frequency, hematuria, nausea, Pertinent negatives: dizziness, fever, headache, pain radiating to the lower extremities, vomiting. Severity of pain: At its worst the pain was moderate today, in the emergency department the pain is unchanged. The patient has been recently been admitted at [facility], was discharged yesterday. BANQUET LEAD: 19:23 LMP N/A - Post-menopause wg Historical: - Allergies: 19:23 PENICILLINS; wg - Home Meds: 19:23 Vitamin B-12 500 mcg Oral tab 1 tab daily [Active]; Rybelsus 7 mg Oral tab 1 tab once wg daily [Active]; Tradjenta 5 mg Oral tab 1 tab once daily [Active]; propranolol 10 mg Oral tab 1 tab daily [Active]; metformin 1,000 mg Oral tab 1 tab 2 times per day [Active]; loratadine 10 mg Oral tab 1 tab once daily [Active]; lisinopril 2.5 mg Oral tab 1 tab once daily [Active]; Glipizide Oral [Active]; atorvastatin 40 mg Oral tab 1 tab once daily [Active]; gabapentin 100 mg Oral cap 2 caps 3 times per day [Active]; - PMHx: 19:23 Diabetes - NIDDM; High Cholesterol; Migraines; wg - Immunization history:: Adult Immunizations up to date. - Social history:: Smoking status: Patient denies any tobacco usage or history of. ROS: 19:45 Constitutional: Negative for fever, chills, and weight loss, Eyes: Negative for injury, mh7 pain, redness, and discharge, ENT: Negative for injury, pain, and discharge, Neck: Negative for injury, pain, and swelling, Cardiovascular: Negative for chest pain, palpitations, and edema, Respiratory: Negative for shortness of breath, cough, wheezing, and pleuritic chest pain, MS/Extremity: Negative for injury and deformity, Skin: Negative for injury, rash, and discoloration, Neuro: Negative for headache, weakness, numbness, tingling, and seizure, Psych: Negative for depression, anxiety, suicide ideation, homicidal ideation, and hallucinations, Allergy/Immunology: Negative for hives, rash, and allergies, Endocrine: Negative for neck swelling, polydipsia, polyuria, polyphagia, and marked weight changes, Hematologic/Lymphatic: Negative for swollen nodes, abnormal bleeding, and unusual bruising. Exam: 19:45 Head/Face: Normocephalic, atraumatic. Eyes: Pupils equal round and reactive to light, mh7 extra-ocular motions intact. Lids and lashes normal. Conjunctiva and sclera are non-icteric and not injected. Cornea within normal limits. Periorbital areas with no swelling, redness, or edema. Neck: Trachea midline, no thyromegaly or masses palpated, and no cervical lymphadenopathy. Supple, full range of motion without nuchal rigidity, or vertebral point tenderness. No Meningismus. Chest/axilla: Normal chest wall appearance and motion. Nontender with no deformity. No lesions are appreciated. Cardiovascular: Regular rate and rhythm with a normal S1 and S2. No gallops, murmurs, or rubs. Normal PMI, no JVD. No pulse deficits. Respiratory: Lungs have equal breath sounds bilaterally, clear to auscultation and percussion. No rales, rhonchi or wheezes noted. No increased work of breathing, no retractions or nasal flaring. Skin: Warm, dry with normal turgor. Normal color with no rashes, no lesions, and no evidence of cellulitis. MS/ Extremity: Pulses equal, no cyanosis. Neurovascular intact. Full, normal range of motion. Neuro: Awake and alert, GCS 15, oriented to person, place, time, and situation. Cranial nerves II-XII grossly intact. Motor strength 5/5 in all extremities. Sensory grossly intact. Cerebellar exam normal. Normal gait. Psych: Awake, alert, with orientation to person, place and time. Behavior, mood, and affect are within normal limits. 19:45 Constitutional: The patient appears in no acute distress, alert, awake, uncomfortable. 19:45 Back: normal spinal alignment noted, CVA tenderness, that is moderate, is noted bilaterally, vertebral tenderness, is not appreciated, muscle spasm, is not present. 19:45 Abdomen/GI: Soft, non-tender, with normal bowel sounds. No distension or tympany. No 7 guarding or rebound. No evidence of tenderness throughout. Vital Signs: 19:21 BP 141 / 63; Pulse 86; Resp 12; Temp 98.6; Pulse Ox 99% on R/A; Weight 121.56 kg; wg Height 5 ft. 1 in. (154.94 cm); Pain 10/10; 20:00 BP 149 / 59; Pulse 76; Resp 18; Pulse Ox 99% ; Pain 8/10; dc2 21:00 BP 119 / 52; Pulse 64; Resp 18; Pulse Ox 98% ; Pain 4/10; dc2 22:00 BP 104 / 59; Pulse 73; Resp 17; Pulse Ox 94% on R/A; Pain 2/10; dc2 23:00 BP 113 / 61; Pulse 66; Resp 16; Temp 97.2(O); Pulse Ox 96% ; Pain 7/10; dc2 12/30 00:00 BP 113 / 60; Pulse 67; Resp 16; Pulse Ox 95% on R/A; Pain 0/10; dc2 12/29 19:21 Body Mass Index 50.64 (121.56 kg, 154.94 cm) MDM: 12/29 21:53 Differential diagnosis: nephrolithiasis, pyelonephritis, UTI. Data reviewed: vital [facility] signs, nurses notes, old medical records, lab test result(s), CBC, electrolytes, urinalysis, radiologic studies, CT scan. Data interpreted: Pulse oximetry: on room air is 99 %. Interpretation: normal. Counseling: I had a detailed discussion with the patient and/or guardian regarding: the historical points, exam findings, and any diagnostic results supporting the discharge/admit diagnosis, lab results, radiology results, the need for further work-up and treatment in the hospital. Response to treatment: the patient's symptoms have markedly improved after treatment. Physician consultation: was contacted at 21:45, regarding patient's condition, would like admission per Dr. Juanita De MD Discussed with Dr. Aguilar for urology who recommend admission with IV antibiotics for pyelonephritis. He stated no surgical treatment is required.. Admission orders: after a detailed discussion of the patient's condition and case, the admit orders are written by me. 21:57 Patient medically screened. [facility] 12/29 19:44 Order name: Basic Metabolic Panel; Complete Time: 21:04 [facility] 12/29 19:44 Order name: CBC with Diff; Complete Time: 20:48 [facility] 12/29 19:44 Order name: Hepatic Function; Complete Time: 21:04 [facility] 12/29 19:44 Order name: Lipase; Complete Time: 21:04 [facility] 12/29 19:44 Order name: Urine Microscopic Only; Complete Time: 21:30 [facility] 12/29 19:44 Order name: Urine Culture [facility] 12/29 19:44 Order name: CT Stone Protocol; Complete Time: 20:14 [facility] 12/29 20:04 Order name: Urine Dipstick-Ancillary; Complete Time: 20:14 [facility] 12/29 21:40 Order name: Blood Culture Adult (2) [facility] 12/29 22:05 Order name: COVID-19 (Coronavirus) Document "Date of Onset" if Symptomatic bb 12/29 23:34 Order name: SARS-COV-2 RT PCR; Complete Time: 23:46 [facility] 12/29 19:44 Order name: IV Saline Lock; Complete Time: 20:18 [facility] 12/29 19:44 Order name: Labs collected and sent; Complete Time: 20:18 [facility] 12/29 19:44 Order name: Urine Dipstick-Ancillary (obtain specimen); Complete Time: 20:18 [facility] 12/29 22:04 Order name: 60g Consistent Carbohydrate (ADA 1800/2000); Complete Time: 22:49 EDMS Administered Medications: 20:15 Drug: NS 0.9% 1000 ml Route: IV; Rate: 1000 ml; Infused Over: 1 hrs; Site: left dc2 antecubital; Delivery: Primary tubing; 21:56 Follow up: IV Status: Completed infusion; IV Intake: 1000ml dc2 20:16 Drug: Zofran (Ondansetron) 4 mg Route: IVP; Site: left antecubital; dc2 21:03 Follow up: Response: No change in condition dc2 20:18 Drug: morphine 4 mg Route: IVP; Site: left antecubital; dc2 21:03 Follow up: Response: Pain is decreased dc2 22:22 Drug: LevaQUIN (levofloxacin) 500 mg Volume: 100 ml; Route: IVPB; Rate: 100 ml/hr; dc2 Infused Over: 60 mins; Site: left antecubital; Delivery: Primary tubing; 23:25 Follow up: IV Status: Completed infusion; IV Intake: 100ml dc2 23:30 Drug: Meropenem 1 grams Route: IV; Rate: per protocol; Infused Over: 1 hrs; Site: left dc2 antecubital; Delivery: Primary tubing; Disposition Summary: 12/29/20 21:57 Hospitalization Ordered Hospitalization Status: Inpatient Admission [facility] Provider: Juanita De [facility] Condition: Stable [facility] Problem: an ongoing problem [facility] Symptoms: have improved [facility] Bed/Room Type: Standard [facility] Room Assignment: [facility](12/29/20 23:51) Diagnosis - Pyelonephritis acute [facility] - Calculus of kidney with calculus of ureter - With bilateral ureteral stents [facility] Forms: - Medication Reconciliation Form [facility] - SBAR form [facility] Signatures: Dispatcher [employer] EDAdrianne Winkler RN RN Max Holliday MD MD [facility] Epi Solano RN Jaclyn Reyes RN RN dc2 Corrections: (The following items were deleted from the chart) 23:51 21:57 [facility]
[2020-12-29] MEDS ORDERED: ACETAMINOPHEN 500 MG TAB PO PRN (22:00)
[2020-12-29] MEDS ORDERED: ALBUTEROL 2.5 MG/3 ML NEB SOL NEB PRN (22:00)
[2020-12-29] MEDS ORDERED: Meropenem 1000 MG/VIAL IV ONE (22:24)
[2020-12-29] MEDS ORDERED: Levofloxacin500mg IV 500 MG/100 ML BAG IV ONE (22:25)
[2020-12-29] MEDS ORDERED: MORPHINE 2 MG/ML SYR ONE (23:32)
[2020-12-30 01:37] VITALS: BMI 50.1
[2020-12-30] MEDS: MORPHINE 4 MG/ML SYR IV PRN ×3 (02:08→20:57)
[2020-12-30] MEDS: NA CHLORIDE 0.9% 1,000 ML IV SCH ×2 (02:09→08:00)
[2020-12-30] MEDS: ONDANSETRON 4 MG/2 ML VIAL IV PRN (02:09)
[2020-12-30 05:38] LABS: Absolute Lymphocytes (CBC) 3.1 K/uL (0.7-4.9); Basophils % 0.6 % (0-1.3); Hematocrit 31.3 % (36.0-45.0); Lymphocytes % 20.3 % (15.3-44.8); MPV 8.1 fL (7.6-11.3); RBC Red Blood Cell Count 3.71 M/uL (3.86-4.86)
[2020-12-30 06:00] LABS: ALT/SGPT 25 U/L (12-78); AST/SGOT 11 U/L (15-37); Albumin 2.6 g/dL (3.4-5.0); Alkaline Phosphatase 74 U/L (45-117); BUN Blood Urea Nitrogen 13 mg/dL (7-18); Bicarbonate 28 mmol/L (21-32); Bilirubin Total 0.6 mg/dL (0.2-1.0); Glucose Level 217 mg/dL (74-106); Potassium 3.8 mmol/L (3.5-5.1); Protein, Total 6.8 g/dL (6.4-8.2); Sodium Level 139 mmol/L (136-145)
[2020-12-30] MEDS: INSULIN -REGULAR HUMAN 50 UNIT/0.5 ML ML SQ SCH ×4 (07:30→20:49)
[2020-12-30] MEDS ORDERED: lisinopriL 5 MG TAB PO SCH (09:00)
[2020-12-30] MEDS ORDERED: INFLUENZA VACCINE (for 6+ mo) 0.5 ML DOSE IMVAC ONE (09:00)
[2020-12-30] MEDS: Meropenem 1 GM/100 ML BAG IV SCH ×2 (10:13→20:48)
[2020-12-30] MEDS: METFORMIN HCL 500 MG TAB PO SCH ×2 (10:16→16:49)
[2020-12-30] MEDS: GLIMEPIRIDE 2 MG TABLET PO SCH ×2 (10:16→16:50)
[2020-12-30] MEDS: ENOXAPARIN 30 MG/0.3 ML SQ SCH ×2 (10:16→20:48)
[2020-12-30] MEDS: lisinopriL 5 MG TAB PO SCH (10:17)
[2020-12-30] MEDS: GABAPENTIN 100 MG CAP PO SCH ×3 (10:17→20:48)
--- NOTE | 2020-12-30 11:52 | HP ---
Date of Admission: 12/30/2020 Chief Complaint: Abdominal pain and nausea. History Of Present Illness: This is a 55-year-old pleasant female patient with prior history of kidney stone, who was recently admitted on 12/26/2020, and she was discharged to go home next day after she had procedure done by Dr. Aguilar for kidney stone. When the patient presented to the hospital last time, she had abdominal pain, cough, congestion, sore throat. Her COVID-19 test was negative, and CAT scan had shown bilateral small renal calculi, which was noted on prior CAT scan but it also showed presence of stone in the left ureter with hydronephrosis. After Dr. Aguilar was consulted, he placed bilateral ureteric stents, and the patient was discharged to go home in stable condition. Her white count during last hospital admission was 14.7. She was discharged to go home with Levaquin 500 mg daily. Her blood culture and urine culture from last hospital admission remain negative. The patient came back to emergency room yesterday as her abdominal pain got worse, and she is having bilateral lateral anterior and posterior flank pain and having nausea. Her urine has gross hematuria. After she came into the emergency room, she had another CAT scan of the abdomen and pelvis done. There is no evidence of hydronephrosis, but she still has a small stone in the left ureter distal to the tip of stent in the left ureter. Bilateral renal calculi in the kidney noted. Her white count had gone up to 19,000 now, and I was contacted, requesting admission to the hospital. ER physician was requested to consult Dr. Aguilar from Urology Service, who did communicate with the ER physician, but he is not available this weekend, but at the same time, he has suggested no need for further intervention, except antibiotic for pyelonephritis, and the patient was admitted to the hospital. After her admission to the hospital, the patient reports that during last night, all of a sudden, she noted that her urinary flow had increased and after that, her pain improved, and she is wondering if she had passed a kidney stone last night or not. Allergies: TO PENICILLIN CAUSING THROAT CLOSING, SENSATION. Medications: She takes Fiorinal and she takes 1 capsule by mouth 4 times a day as needed for headache, atorvastatin 40 mg daily at bedtime, vitamin D3 5000 units daily, gabapentin 100 mg she takes 2 capsules by mouth 3 times a day, glimepiride 4 mg takes 1 tablet by mouth 2 times a day that is with breakfast and with supper, propranolol 10 mg 1 tablet by mouth daily at bedtime, [id number] mg by mouth 2 times a day with breakfast and supper, lisinopril 2.5 mg by mouth daily, Tradjenta 5 mg by mouth daily, Rybelsus 7 mg by mouth daily, vitamin B12 500 mcg by mouth daily, Imitrex p.r.n. Levaquin 500 mg daily. Review of Systems: GI: As mentioned above. Genitourinary: As mentioned above. All other systems reviewed and negative. Past Medical History: Significant for COVID-19 illness on March 13, 2020, migraine, type 2 diabetes mellitus, hyperlipidemia, palpitation, gastroesophageal reflux disease, known alcoholic fatty liver disease, vitamin D deficient. Past Surgical History: Tonsillectomy, cholecystectomy, appendectomy, lithotripsy, and hysterectomy. Family History: Father , had blood clot. Mother had stroke and melanoma. Sister with migraines. Social History: Negative for smoking. Use of alcohol very rarely. Physical Examination: Vital Signs: Height 5 feet 1 inch, weight 265 pounds, temperature 97.2, pulse 67, respiratory rate 17, blood pressure 113/60, oxygen saturation 98%. General: Awake, alert, oriented, not in distress. HEENT: Head atraumatic, normocephalic. Conjunctivae nonerythematous. Sclerae white. Mouth, no thrush or edema noted. Ears/Nose, no mass, lesion, discharge noted. Neck: Supple. No JVD, lymph nodes, bruit, thyromegaly noted. Lungs: Bilateral good equal air entry. Clear to auscultation. No rhonchi. No rales. Heart: Normal heart sounds, no murmur or gallop. Abdomen: Soft. No guarding, rigidity. No distention. Presence of bilateral anterior and lateral flank tenderness present. No rebound tenderness. Bowel sounds normoactive. No hepatosplenomegaly. No bruit. Extremities: No leg edema. No calf tenderness. Skin: No rash, ulcer, cellulitis. Lymphatics: No lymph node enlargement in neck, supraclavicular, infraclavicular region. Neuro: No focal neurological deficit. Chest: Unremarkable. External Genitalia: Deferred. Rectal: Deferred. Laboratory Data: Yesterday, white count was 19.4, hemoglobin 11.8, platelets 410. This morning, white count 15.1, hemoglobin 10.3, platelets 330. Yesterday, sodium 137, potassium 4.1, chloride 101, bicarb 26, BUN 16, creatinine 0.85, glucose 283. Liver function tests unremarkable. Lipase 130. This morning, sodium 139, potassium 3.8, chloride 104, bicarb 28, BUN 13, creatinine 0.65, glucose 217. Urinalysis: 3+ blood, negative for nitrite, 1+ esterase, rbc TNTC, wbc 10-20, bacteria 20-50. COVID-19 test negative. CAT scan of the abdomen per kidney stone protocol shows bilateral double-J stent in place without hydronephrosis. Calculi present along the course of both stents. About 8 mm calculi near the stent in the right renal pelvis and about 3 mm stone in the left distal ureter. Impression: 1. Acute pyelonephritis. 2. Kidney stone. 3. Anemia, unspecified. 4. Type 2 diabetes mellitus, uncontrolled. 5. Hyperlipidemia. 6. Gastroesophageal reflux disease. 7. Nonalcoholic fatty liver disease. 8. Vitamin D deficiency. Plan: Admit the patient to hospital for further evaluation and management of this problem. The patient is appropriate for inpatient and is expected to spend 2 midnights in hospital. We will go ahead and continue home medications per order. DVT prophylaxis will be given using Lovenox, and we will start her on empiric antibiotic, meropenem 1 g IV every 12 hours. Follow up on culture results. Details and plan of treatment discussed with her. Ambulation was encouraged, and I will see her tomorrow for followup. ALYSIA/MODL Voice ID: [id number] MTDD
[2020-12-30] MEDS: ATORVASTATIN 40 MG TAB PO SCH (20:48)
[2020-12-30] MEDS ORDERED: PROPRANOLOL HCL 10 MG TAB PO SCH (21:00)
[2020-12-31 06:13] LABS: Absolute Lymphocytes (CBC) 2.8 K/uL (0.7-4.9); Basophils % 0.6 % (0-1.3); Hematocrit 31.9 % (36.0-45.0); Lymphocytes % 19.8 % (15.3-44.8); MPV 8.3 fL (7.6-11.3); RBC Red Blood Cell Count 3.78 M/uL (3.86-4.86)
[2020-12-31 06:21] LABS: BUN Blood Urea Nitrogen 10 mg/dL (7-18); Bicarbonate 28 mmol/L (21-32); Glucose Level 231 mg/dL (74-106); Magnesium 1.9 mg/dL (1.8-2.4); Sodium Level 140 mmol/L (136-145)
[2020-12-31] MEDS: INSULIN -REGULAR HUMAN 50 UNIT/0.5 ML ML SQ SCH ×4 (07:30→21:00)
[2020-12-31] MEDS: GABAPENTIN 100 MG CAP PO SCH ×3 (10:39→21:13)
[2020-12-31] MEDS: ENOXAPARIN 30 MG/0.3 ML SQ SCH ×2 (10:39→21:13)
[2020-12-31] MEDS: METFORMIN HCL 500 MG TAB PO SCH ×2 (10:39→17:05)
[2020-12-31] MEDS: GLIMEPIRIDE 2 MG TABLET PO SCH ×2 (10:40→17:05)
[2020-12-31] MEDS: NA CHLORIDE 0.9% 1,000 ML IV SCH ×2 (10:41→21:12)
[2020-12-31] MEDS: lisinopriL 5 MG TAB PO SCH (10:50)
[2020-12-31] MEDS: Meropenem 1 GM/100 ML BAG IV SCH ×2 (10:50→21:13)
--- NOTE | 2020-12-31 12:08 | PN ---
Date of Progress Note: 12/31/2020 Subjective: The patient was seen this morning for followup. She was sitting in the chair, feeling m uch better today than last few days. Denies any nausea, vomiting. Abdominal pain is significantly b angelina. She still has some dysuria. She says it was the end of urination. She has little bit discom fort. Otherwise, she is feeling better. Her gross hematuria is still present, but it is significant ly better as she describes. Objective: Vital Signs: Reviewed. HEENT: Unremarkable. Lungs: Clear to auscultation. Heart: Sounds normal. Abdomen: Soft. Bowel sounds normal. The patient does have right posterolateral flank tenderness an d left anterior flank tenderness, but overall much better than before. Extremities: No leg edema. Laboratory Data: White count 14.1, hemoglobin 10.4, platelets 326. Sodium 140, potassium 4, chlorid e 104, bicarb 28, BUN 10, creatinine 0.60, glucose 231, magnesium 1.9. Impression: 1.Acute pyelonephritis. 2.Anemia, unspecified. 3.Hypertension. 4.Type 2 diabetes mellitus. 5.Kidney stone. Plan: So far, blood culture and urine culture have remained negative. The patient is afebrile on me ropenem, we will continue that. Her blood pressure this morning was on the lower side. She does not have any signs of sepsis. We will hold her antihypertensive medication if systolic blood pressure l ess than 120. We will give her IV fluid per order. The patient will need to go home with IV meropen em as she failed oral antibiotic treatment with Levaquin. I did talk to her about that and she did h elp her grandmother with IV antibiotics, so she is very familiar with that and she will be able to morales ndle it at home and our plan is to go ahead and get a PICC line placed. Hopefully, we can do it nolan chen and have Social Service help us make arrangements for IV meropenem for 10 days at home upon disch arge. Possible discharge to go home probably in the next 1 or 2 days. We will repeat blood work alona orrow morning. ALYSIA/MODL Voice ID: [id number] Report ID: [id number]
[2020-12-31 13:45] LABS: Urine Appearance CLOUDY (Clear); Urine Bilirubin NEGATIVE (Negative); Urine Blood 3+ (Negative); Urine Color YELLOW (Yellow); Urine Glucose TRACE (Negative); Urine Protein 2+ (Negative); Urine Urobilinogen 0.2 mg/dL (0.2-1.0)
[2020-12-31 14:03] LABS: Urine Microscopic Reflex ORDER UMIC
[2020-12-31 14:44] LABS: Urine Bacteria <20 /HPF (<20); Urine RBC 20-50 /HPF (NONE SEEN)
[2020-12-31] MEDS: PROPRANOLOL HCL 10 MG TAB PO SCH (21:12)
[2020-12-31] MEDS: ATORVASTATIN 40 MG TAB PO SCH (21:13)
[2021-01-01] MEDS: MORPHINE 4 MG/ML SYR IV PRN (04:32)
[2021-01-01 05:40] LABS: Absolute Lymphocytes (CBC) 3.5 K/uL (0.7-4.9); Basophils % 0.7 % (0-1.3); Lymphocytes % 23.1 % (15.3-44.8); MPV 8.2 fL (7.6-11.3); RBC Red Blood Cell Count 3.81 M/uL (3.86-4.86)
[2021-01-01 06:04] LABS: BUN Blood Urea Nitrogen 9 mg/dL (7-18); Bicarbonate 26 mmol/L (21-32); Glucose Level 213 mg/dL (74-106); Magnesium 1.8 mg/dL (1.8-2.4); Sodium Level 139 mmol/L (136-145)
[2021-01-01] MEDS: INSULIN -REGULAR HUMAN 50 UNIT/0.5 ML ML SQ SCH ×4 (07:30→21:00)
[2021-01-01] MEDS: lisinopriL 5 MG TAB PO SCH (09:08)
[2021-01-01] MEDS: GABAPENTIN 100 MG CAP PO SCH ×3 (09:08→20:52)
[2021-01-01] MEDS: METFORMIN HCL 500 MG TAB PO SCH ×2 (09:08→18:07)
[2021-01-01] MEDS: GLIMEPIRIDE 2 MG TABLET PO SCH ×2 (09:08→18:06)
[2021-01-01] MEDS: Meropenem 1 GM/100 ML BAG IV SCH ×2 (09:09→21:16)
[2021-01-01] MEDS: ENOXAPARIN 30 MG/0.3 ML SQ SCH ×2 (09:11→20:51)
[2021-01-01] MEDS: NA CHLORIDE 0.9% 1,000 ML IV SCH (14:24)
[2021-01-01] MEDS: ATORVASTATIN 40 MG TAB PO SCH (20:51)
[2021-01-01] MEDS: PROPRANOLOL HCL 10 MG TAB PO SCH (21:15)
--- NOTE | 2021-01-01 22:04 | PN ---
Date of Progress Note: 01/01/2021 Subjective: The patient was doing fine all day yesterday after I saw her and her pain had significan tly improved as she reported yesterday morning. Sometime last night around 4:30 a.m. when she went t o the bathroom, all of a sudden, she realized that her pain was worse than before and it is all on th e right side and her gross hematuria problem got worse with this worsening of the abdominal pain. De nies any nausea or vomiting. Objective: Vital Signs: Reviewed. HEENT: Unremarkable. Lungs: Clear to auscultation. Heart: Sounds normal. Abdomen: Soft. Bowel sounds normal. No guarding, rigidity, or distention. Presence of right-sided tenderness in the right anterior lateral and posterior flank. Extremities: No leg edema. Laboratory Data: White count 15.3, hemoglobin 10.4, and platelets 322. Sodium 139, potassium 4, chl oride 106, bicarb 26, BUN 9, creatinine 0.55, glucose 213, and magnesium 1.8. Impression: 1.Acute pyelonephritis. 2.Bilateral renal stone. 3.Hydronephrosis, left side, status post bilateral ureteral stent placement. 4.Gross hematuria secondary to above. 5.Anemia. 6.Leukocytosis. 7.Diabetes mellitus, type 2, uncontrolled. Plan: We will go ahead and continue current antibiotic, which is meropenem. We will request consult ation from urologist, Dr. Aguilar, who had done procedure on her last week for placement of bilateral ureteral stent. Considering worsening of her symptoms, we will request consultation from him. Cont inue current IV fluid antibiotics. I have reviewed her multiple prior hospital lab results. Her [facility] te count almost always has remained between range of 12,000 to 16,000, most of the time so what I hav e informed her that once she recovers from this kidney stone problem, I would like for her to follow up with medical receptionist assistant for further evaluation of this leukocytosis problem. Meanwhile, we will continu e current antibiotic, pain medications, DVT prophylaxis, and I will see her tomorrow for followup. ALYSIA/MODL Voice ID: [id number] Report ID: [id number]
[2021-01-02] MEDS: MORPHINE 4 MG/ML SYR IV PRN ×3 (00:13→09:17)
[2021-01-02] MEDS: NA CHLORIDE 0.9% 1,000 ML IV SCH ×2 (00:29→15:08)
[2021-01-02] MEDS: INSULIN -REGULAR HUMAN 50 UNIT/0.5 ML ML SQ SCH ×4 (07:30→21:00)
[2021-01-02 07:35] LABS: Absolute Lymphocytes (CBC) 3.6 K/uL (0.7-4.9); Basophils % 0.7 % (0-1.3); Hematocrit 33.8 % (36.0-45.0); Lymphocytes % 20.8 % (15.3-44.8); MPV 8.1 fL (7.6-11.3); RBC Red Blood Cell Count 4.01 M/uL (3.86-4.86)
[2021-01-02 07:37] LABS: BUN Blood Urea Nitrogen 13 mg/dL (7-18); Bicarbonate 29 mmol/L (21-32); Glucose Level 199 mg/dL (74-106); Magnesium 1.8 mg/dL (1.8-2.4); Potassium 4.1 mmol/L (3.5-5.1); Sodium Level 139 mmol/L (136-145)
--- NOTE | 2021-01-02 07:49 | RAD REPORT ---
EXAM DESCRIPTION: RAD - Abdomen 1 View (KUB) - 01/02/2021 6:59 am CLINICAL HISTORY: Abdomen pain. FINDINGS: The bowel gas pattern is unremarkable. Bilateral renal calculi. Calcification along the course of the left ureteral stent is not clearly see n on this exam but could be obscured by the overlying stent.
[2021-01-02] MEDS: lisinopriL 5 MG TAB PO SCH (09:16)
[2021-01-02] MEDS: METFORMIN HCL 500 MG TAB PO SCH ×2 (09:16→17:26)
[2021-01-02] MEDS: GLIMEPIRIDE 2 MG TABLET PO SCH ×2 (09:16→17:26)
[2021-01-02] MEDS: ENOXAPARIN 30 MG/0.3 ML SQ SCH ×2 (09:17→22:06)
[2021-01-02] MEDS: GABAPENTIN 100 MG CAP PO SCH ×3 (09:17→22:04)
[2021-01-02] MEDS: Meropenem 1 GM/100 ML BAG IV SCH (09:17)
[2021-01-02 09:26] VITALS: O2SAT 96
[2021-01-02] MEDS ORDERED: HYDROCODONE/APAP 7.5/325 MG TAB PO SCH (21:00)
[2021-01-02] MEDS ORDERED: AMOX/K CLAV 875 MG TAB PO SCH (21:00)
[2021-01-02] MEDS ORDERED: OXYBUTYNIN CHLORIDE 5 MG TAB PO SCH (21:00)
[2021-01-02] MEDS ORDERED: DOXYCYCLINE 100 MG CAP PO SCH (21:00)
[2021-01-02] MEDS: ONDANSETRON 4 MG/2 ML VIAL IV PRN (22:03)
[2021-01-02] MEDS: ATORVASTATIN 40 MG TAB PO SCH (22:04)
[2021-01-02] MEDS: PROPRANOLOL HCL 10 MG TAB PO SCH (22:05)
--- NOTE | 2021-01-03 00:13 | PN ---
Date of Progress Note: 01/02/2021 Subjective: Patient was seen this morning for followup. She reported that yesterday after I saw her progressively her pain got better during daytime and last night once again right-sided flank pain go t worse with hematuria, which is persistent. No nausea, vomiting. No fever, chills. Objective: Vital Signs: Reviewed HEENT: Unremarkable. Lungs: Clear to auscultation. Heart: Heart sounds normal. Abdomen: Soft, bowel sounds normal. No guarding, rigidity, distention. Presence of tenderness in t he right flank, unchanged from yesterday. No rebound tenderness. Extremities: No leg edema. Laboratory Data: White count 17.5, hemoglobin 11.3, platelets 382. Sodium 139, potassium 4.1, chlor daren 106, bicarb 29, BUN 13, creatinine 0.67, glucose 199. X-ray, KUB is done, results reviewed. Impression: 1.Kidney stone. 2.Leukocytosis. 3.Diabetes mellitus, type 2, uncontrolled. 4.Anemia, unspecified. Plan: Dr. Aguilar of Urology was consulted. He evaluated the patient and he did call me and we had discussion today regarding patient's current management. At this point, all her cultures are negativ e. She was on Levaquin prior to this hospital admission and when she came into the hospital, [place] [id number]. During her last hospital admission, it was 14,000 and 15,000. When she was admi tted this time, we started her on meropenem and white count came down to 14,000 and 15,000 and today went up again to 17,000. So far, cultures are negative. She is afebrile and multiple prior hospital lab results and office outpatient lab results. I have 2 CBCs in last 2 years outpatient [facility] and ea [facility] time her white count was between 13,000-14,000 and multiple CBC results at the hospital also revea ls white count between 12,000-17,000 on majority of her blood work. and I have requested consultation from children counselor for further evaluation. Dr. Aguilar and I both had long discussion to day and we both agreed that we should try and switch her antibiotic from IV meropenem to oral antibio tics and we will try Augmentin and doxycycline and also try oral pain medication. Also, we will star t her on oxybutynin for bladder spasm. Dr. Aguilar has indicated that her current pain that she is g oing through is expected with ureter stent placement. Plan is if she gets comfortable enough to go h ome, then hopefully we can plan to discharge her in next couple of days and Dr. Aguilar is planning t o do elective surgery on an outpatient basis. I will see her tomorrow for followup. We will repeat blood work tomorrow morning. ALYSIA/MODL Voice ID: [id number] Report ID: [id number]
[2021-01-03] MEDS: NA CHLORIDE 0.9% 1,000 ML IV SCH (03:00)
[2021-01-03 06:02] LABS: Absolute Lymphocytes (CBC) 3.5 K/uL (0.7-4.9); Basophils % 0.9 % (0-1.3); Hematocrit 31.2 % (36.0-45.0); MPV 8.1 fL (7.6-11.3); RBC Red Blood Cell Count 3.73 M/uL (3.86-4.86)
[2021-01-03 06:03] VITALS: BP 104/58; TEMP 97
[2021-01-03 06:13] LABS: BUN Blood Urea Nitrogen 11 mg/dL (7-18); Bicarbonate 26 mmol/L (21-32); Glucose Level 161 mg/dL (74-106); Magnesium 1.6 mg/dL (1.8-2.4); Potassium 4.1 mmol/L (3.5-5.1); Sodium Level 139 mmol/L (136-145)
[2021-01-03] MEDS ORDERED: MAGNESIUM SULFATE 1 gm IVPB 1 GM/100 ML BAG IV ONE (06:18)
--- NOTE | 2021-01-03 09:17 | CON ---
Reason For Consultation: 1.Persistent pain. 2.Nephroureterolithiasis. History Of Present Illness: Ms. Guerrero is a 55-year-old woman with type 2 diabetes that has been r easonably controlled, who presented last week via the emergency department with severe left-sided fla nk pain associated with an obstructing ureteral calculus. She additionally had significant-sized rig ht nephrolithiasis and given the significance of the stones on the right relative to the small size o f the obstructing stone on the left that brought her in, we discussed placement of bilateral ureteral stents in order to manage her obstruction, but also to prepare for management of the stones on the r ight side. She also underwent a KUB prior to the stents being placed, which did not visualize the st ones. As a result, she was not a candidate for shockwave lithotripsy and would require ureteroscopy with laser lithotripsy. Thus having stents in place, would expedite that management bilaterally. Ho wever, over the weekend, she returned to the emergency department again with severe discomfort. She denied any associated fever or chills, nausea or vomiting. She was readmitted to the hospital and pl aced on meropenem under Dr. De's primary management. Cultures taken from the Emergency Department on 12/29/2020, both in the urine and the blood, were negative and no growth to date respectively. Ad ditionally, her white blood count which was elevated to 19.4, had declined over the course of the nex t several days, down to 15.3 yesterday, but as of today, had increased again to 17.5. This was assoc iated with a creatinine that was normal at 0.55, although her glucose remained around 220. Of note, she was COVID negative. Repeat CT scan did demonstrate that the stents were in excellent position wi th a coil observed within the renal pelvis or the upper pole of the kidney bilaterally and no evidenc e of ongoing hydronephrosis. Despite this, the patient still complained of significant pain. Over t he course of the weekend with IV morphine available for pain management, she did achieve some improve ment in her pain, but this was still somewhat intermittent. She also had a degree of gross hematuria that would intermittently resolve. Physical Examination: On examination, the patient is well appearing, sitting up in bed, alert and awake, oriented x3, in no acute distress. Her abdomen is soft at this point and nontender. I discussed with the patient her current situation, noting that the stents were in good position and that perhaps the stent discomfort, which can be prevalent even with a single stent, may be double, so annoying in her at this point. Since there were plans underway to consider placing a PICC line and discharging her with IV meropenem for an extended course, I discussed the potential that she may not require that given the lack of signs of infection other than her elevated white count and the negativ e cultures. I then spoke directly with Dr. De, and we discussed her circumstance. He explained that independen t of this visit over the last several months, he noted that she had a persistently elevated white blo od count between 14 and 17 even in the absence of any acute event like stones. As a result, he is pl anning on a hematologic evaluation. I thus made the following recommendations: Consider treatment for alternative organisms that may not have easily grown on culture since she had been previously on Levaquin, like a fungus or potentially a staphylococcus organism. We discussed po tential treatment with Augmentin and doxycycline to cover a staphylococcal organism and any atypical bacteria that may be involved. Additionally, given the stent discomfort which seems prevalent, I recommended oral pain management wi th either Condon or Percocet, potentially increasing that to oral Dilaudid as necessary, in order to c ontrol her pain. I also recommended oxybutynin 5 mg p.o. q.8 hours to manage the component of bladde r spasms that may be contributing to the stent discomfort. We agree that we would observe the patient over the next 24-48 hours with these changes in her antimi crobial and other pain management routine, and if the patient sufficiently improves in order to be di scharged, we will complete the treatment over the course of the next 14 days of total therapy from r admission and planned outpatient ureteroscopy with laser lithotripsy. If she is unable to clinical ly improve significant enough for discharge, we will consider inpatient operative management of her b ilateral stones. Of note, approximately 25 minutes total time was spent in this consultation between review of the chelo ges, [id number] time with the patient, and discussion with her admitting physician, Dr. De. VIOLA/ANUP Voice ID: [id number] Report ID: [id number]
--- NOTE | 2021-01-04 07:39 | DS ---
Date of Discharge: 01/03/2021 Disposition: Discharged to go home. Physical Examination: HEENT: Unremarkable. Lungs: Clear to auscultation. Heart: Sounds normal. Abdomen: Soft. Bowel sounds normal. No guarding, rigidity, distention. Presence of mild tendernes s in right posterior flank and anterior flank. Overall much better than before. Extremities: No leg edema. Laboratory Data: Upon admission; white count 19.4, hemoglobin 11.8, platelets 410. Last CBC today; white count 16.8, hemoglobin 10.4, platelets 346. Lowest white count was 14.1 on 12/31/2020. Last c hemistry today; sodium 139, potassium 4.1, chloride 106, bicarb 26, BUN 11, creatinine 0.52, glucose 161, magnesium 1.6. Hospital Course: This is a 55-year-old very pleasant female patient, who was admitted to the [facility] with abdominal pain and nausea. Please see dictated H and P for more information. After the patie nt was evaluated in the emergency room, she was admitted to the hospital. She recently had a [facility] admission with kidney stone and had surgery done by Dr. Aguilar with placement of stent in bilatera l ureters. She was taking Levaquin as prescribed during last hospital stay. After she was evaluated , she was admitted to the hospital. We started her on meropenem. In place of Levaquin, IV fluid was given, pain medication was started. Dr. Aguilar was consulted from Urology [facility] and he evaluated the patient yesterday. The patient's abdominal pain overall had improved, but last couple of night, she had worsening of the abdominal pain during nighttime. She continues to have gross hematuria, wh ich has cleared up now from the time of admission till today. Dr. Aguilar informed me that the pain that the patient is having is expected because of the ureter stent. X-ray and KUB was done yesterday , which was unremarkable except presence of stone in the kidney, but no stone noted in the ureter. C AT scan of the abdomen was done when she presented to emergency room and that did not show any hydron ephrosis. Overall, the patient's condition has improved now and we believe that she did pass one of her stone from the ureter during this hospital stay, but she was not able to catch that stone. In an y case, Dr. Aguilar is planning to do outpatient elective surgery now for the stone as well as for re moval of stent, which he will plan to do it probably next week or so. Meanwhile as of yesterday, we started her on oral pain medication and oxybutynin and we discontinued her IV antibiotic which is bell openem and started her on oral doxycycline. This morning when I saw her, she looked a lot better. S he is feeling much better and was medically stable for discharge. The patient remained afebrile duri ng this entire course in the hospital. Today magnesium was low and was ordered to be replaced per el ectrolyte replacement protocol. Her blood culture and urine culture remained negative. Originally, we were thinking about giving her meropenem upon discharge, but after discussing with Dr. Aguilar and so far cultures remaining negative, we decided not to send her home with meropenem. For her persist ent leukocytosis which is ongoing problem for her even prior to this admission and prior to last admi ssion and she will benefit from hematological consultation and details were discussed with Dr. Robert dubois and she will see the patient on outpatient basis and I have discussed these details with the morris pickard as well. Discharge Medications And Instructions: 1.Continue all prior home medications including Levaquin. 2.Take following new medications as prescription was sent to pharmacy from my office. a.Doxycycline 100 mg 2 times a day for 1 week and the patient was advised to avoid any excessive sun light exposure while on this antibiotic due to photosensitivity side effect. b.Zofran 4 mg 1 tablet 4 times a day as needed for nausea and vomiting. c.Oxybutynin 5 mg 2 times a day. d.Take pain medication, Tylenol with Codeine 1 tablet by mouth every 6 hours as needed for pain. 3.Follow up at my office on 01/08/2021 at 11:30 a.m. 4.Follow up with Dr. Aguilar next week and the patient to call his office for appointment. Final Diagnoses: 1.Acute pyelonephritis. 2.Bilateral kidney stones. 3.Anemia, unspecified. 4.Hypomagnesemia. 5.Type 2 diabetes mellitus, uncontrolled. 6.Hypertension. 7.Leukocytosis. ALYSIA/MODL Voice ID: [id number] Report ID: [id number]
== END 2021-01-03 08:48 | disposition home or self-care (01) | DRG 690 ==
LOC: ER 19:07 → ERHOLD 21:58 → 2ND 23:58
PROVIDERS: ADMIT Internal Medicine; ATTEND Internal Medicine
DX: N10 Acute pyelonephritis (principal); Z68.43 Body mass index [BMI] 50.0-59.9, adult; E66.01 Morbid (severe) obesity due to excess calories; E78.5 Hyperlipidemia, unspecified; K21.9 Gastro-esophageal reflux disease without esophagitis; D64.9 Anemia, unspecified; K76.0 Fatty (change of) liver, not elsewhere classified; E83.42 Hypomagnesemia; E55.9 Vitamin D deficiency, unspecified; D72.829 Elevated white blood cell count, unspecified; E11.9 Type 2 diabetes mellitus without complications; R31.0 Gross hematuria; Z88.0 Allergy status to penicillin; Z96.0 Presence of urogenital implants; Z79.84 Long term (current) use of oral hypoglycemic drugs; Z79.899 Other long term (current) drug therapy; Z90.49 Acquired absence of other specified parts of digestive tract; Z90.710 Acquired absence of both cervix and uterus; Z20.822 Contact with and (suspected) exposure to COVID-19
CPT/HCPCS: 36415; 74018; 74176; 76377; 80048; 80053; 80076; 81003; 81015; 82947; 83690; 83735; 84145; 85025; 87040; 87086; 87088; 94760; 94762; 96361; 96365; 96375; 99285; J1650; J2185; J2270; J2405; J3475; J7030; U0003

== ENCOUNTER 2021-02-13 07:50 | Day surgery (SDC) | payer BC ==
[2021-02-12 14:13] LABS: Urine Appearance CLOUDY (Clear); Urine Bilirubin NEGATIVE (Negative); Urine Blood 3+ (Negative); Urine Color YELLOW (Yellow); Urine Glucose NEGATIVE (Negative); Urine Protein 2+ (Negative); Urine Urobilinogen 0.2 mg/dL (0.2-1.0)
[2021-02-12 14:28] LABS: Urine Microscopic Reflex ORDER UMIC
[2021-02-12 14:59] LABS: Urine Bacteria 20-50 /HPF (<20); Urine RBC >50 /HPF (NONE SEEN)
[2021-02-12 15:00] LABS: Urine Mucus LIGHT /HPF (NONE SEEN)
[2021-02-13] MEDS ORDERED: NA CHLORIDE 0.9% 1,000 ML ONE ×2 (08:09→10:56)
[2021-02-13] MEDS ORDERED: GENTAMICIN 80 MG/100 ML BAG 80 MG/100 ML BAG IV ONE (08:28)
[2021-02-13] MEDS ORDERED: MIDAZOLAM HCL 2 MG/2 ML INJ ONE (08:43)
[2021-02-13] MEDS ORDERED: FENTANYL CITR 100 MCG/2 ML ONE (08:44)
[2021-02-13] MEDS ORDERED: propofoL 200 MG/20 ML VIAL IV ONE ×2 (08:44→11:19)
[2021-02-13] MEDS ORDERED: LIDOCAINE 1% MPF 5 ML VIAL ONE (08:44)
[2021-02-13] MEDS ORDERED: GENTAMICIN 80 MG/100 ML BAG 160 MG/200 ML BAG IV ONE (08:50)
[2021-02-13] MEDS ORDERED: CLINDAMYCIN INJ 600 MG in NA CHLORIDE 0.9% 50 ML IV ONE (09:00)
[2021-02-13] MEDS ORDERED: ONDANSETRON 4 MG/2 ML VIAL ONE (10:39)
[2021-02-13] MEDS ORDERED: dexAMETHasone 10 MG/ML VIAL ONE (10:39)
[2021-02-13] MEDS ORDERED: GLYCOPYRROLATE 0.2 MG/ML SYR ONE (10:42)
[2021-02-13] MEDS ORDERED: LABETALOL 20 MG/4ML SYRINGE IV ONE (10:44)
[2021-02-13] MEDS ORDERED: NEOSTIGMINE 1 MG/ML -5 ML ONE (11:00)
[2021-02-13] MEDS ORDERED: Mastisol Adhesive Liq ONE (11:17)
--- NOTE | 2021-02-13 11:56 | RAD REPORT ---
EXAM DESCRIPTION: RAD - Urethrocystogrphy Retrograde - 02/13/2021 11:43 am CLINICAL HISTORY: BILAT STENT REPLACEMENT COMPARISON: Urethrocystogrphy Retrograde dated 12/26/2020; Stone Protocol dated 12/29/2020; Abdomen 1 View (KUB) dated 01/02/2021 FINDINGS/IMPRESSION: Seven intraoperative fluoroscopic images demonstrating placement of bilateral d ouble-J ureteral stents. Fluoro time: 30 seconds Dose: 23.4 mGy
[2021-02-13] MEDS ORDERED: HYDROCODONE/APAP 5/325 MG TAB PO PRN (12:07)
[2021-02-13] MEDS ORDERED: PHENAZOPYRIDINE 100MG TAB PO ONE ×3 (12:07→13:18)
[2021-02-13 13:44] VITALS: BP 145/72; TEMP 97.6; O2SAT 99
--- NOTE | 2021-02-13 22:55 | OP ---
Surgeon: SYLVIE PEÑA Preoperative Diagnoses: 1.Bilateral nephrolithiasis. 2.Left ureterolithiasis. Postoperative Diagnoses: 1.Bilateral nephrolithiasis. 2.Left ureterolithiasis. Principle Procedures: 1.Bilateral ureteroscopy and pyeloscopy with laser lithotripsy. 2.Bilateral ureteral stent exchange. Indication For Procedure: Ms. Guerrero is a 55-year-old woman who presented via the emergency [facility] with an obstructing left ureteral calculus associated with bilateral nephrolithiasis. She under went urgent ureteral stent placement and ultimately presents today for definitive management. Of not e, bilateral stents were placed given the large burden of stone in the right kidney in addition to th e left ureteral obstructing calculus. Findings: 1.8 mm right renal pelvic calculus. 2.4 mm left ureteral calculus. 3.Additional less than 5 mm nephrolithiasis. Procedure In Detail: The patient was consented in the preoperative holding area before being transfe rred to the operative suite where general anesthesia was induced. She was given clindamycin and gent amicin 300 mg IV antimicrobial prophylaxis. Pneumo boots were provided for DVT prophylaxis. She was placed in the lithotomy position, padded and secured to the table appropriately. Her genitalia were prepped using Hibiclens and draped in standard fashion. The case was begun using a 22-Persian rigid cystoscope to traverse the urethra and into the bladder. The bladder was briefly surveyed, and the u reteral stents were noted to emanate from each ureteral orifice. I grasped the left ureteral stent f irst and delivered it via the meatus. Using fluoroscopic guidance, I was able to pass the Sensor wir e up the stent and up the ureter coiling it within the putative upper pole of the kidney. Over that wire, I removed the stent and passed a dual-lumen catheter. The dual-lumen catheter met a point of o bstruction in the mid ureter and a retrograde pyelogram was performed. Contrast did emanate around t his point of obstruction and into the renal pelvis where the wire was observed within the upper pole. I then removed the dual-lumen catheter and utilized semi-rigid ureteroscopy and using direct vision was able a navigate the ureteroscope into the bladder and up the left ureter to the point of obstruc tion, which was the previously seen stone that was about 4 mm in diameter. I thus utilized a 270 nm laser fiber and settings of 0.8 joules and 8 Hz alternating with 0.4 joules and 30 Hz to fragment the stone into dust smaller than 1 mm. I then passed a Bentson guidewire via the channel of the uretero scope and observed a coil fluoroscopically within the upper pole of the kidney. I then removed the s justin-rigid ureteroscope and passed over the Bentson wire a flexible digital ureteroscope. Once within the upper pole of the kidney, I then surveyed each of the calices and encountered an approximately 2 mm Gunnar's plaque within the mid pole calyx and an additional 3 to 4 mm calculus within the lower pole of the left kidney. Using the same laser fiber, I was able to fragment the left lower pole calc yariel into dust smaller than 1 mm before then retracting the ureteroscope into the renal pelvis and ludivina veying down the proximal into the mid and distal ureter. I then turned my attention to the right ure teral stent emanating from the ureteral orifice there. Utilizing a cystoscope to grasp and deliver t hat stent to meatus, I then again passed a Sensor wire up the right ureteral stent into the renal pel vis or calices of the right kidney as observed fluoroscopically. Over that wire, I again passed a du al-lumen catheter into the mid proximal ureter and performed a retrograde pyelogram. Right Retrograde Pyelography: Using a 70:30 mixture of Omnipaque and saline, contrast was injected via the second lumen of the dual -lumen catheter and did delineate a tripartite calyceal system on the right side. There was moderate caliectasis, but no stone was eminently visible. Since the new stones were present per the CT scan, I passed a Bentson guidewire via the second lumen of the dual-lumen catheter and removed the dual-kayleen men catheter. Over the Bentson guidewire, I then passed the flexible ureteroscope into the upper abbie e of the kidney. I then surveyed each of the calices and encountered the 8 mm calculus within the lo wer pole of the kidney. Then again using the 270 nm laser fiber at a power setting of 0.8 joules and 15 Hz, I quickly fragmented that stone, which was relatively soft in nature, to dust smaller than 1 mm and about the size of the laser fiber. Once completely fragmented, I then surveyed again the tia l pelvis and middle and upper pole calices for any stone fragments apparently displaced there, and wh en none were noted, I then surveyed down the proximal into the mid and distal ureter. With no additi onal stone fragments of any significant size noted, ureteroscopy was discontinued. I then back-loaded the rigid cystoscope over the right-sided safety wire and passed a 6-Persian x 24 c m double-J right ureteral stent. This was left on its tether hanging from the urethral meatus. I th en again backloaded the cystoscope over the left safety wire and again passed a 6-Persian x 24 cm doub le-J ureteral stent into the left kidney with a coil observed fluoroscopically in the upper pole and 1 cystoscopically formed within the bladder. This stent was also left on its tether. I then decompr essed her bladder of fluid and urine, and removed the cystoscope. Then, utilizing benzoin and Steri- Strips, the tethers from both stents were secured to her introitus. The patient was taken out of the lithotomy position, awakened from general anesthesia, and then she was transferred to a stretcher. She was then transferred to the recovery room in good condition. Complications: None. Discharge Disposition: She should follow up in the Urology Clinic on or Friday with nurse Alfredito montoya to have the bilateral ureteral stents removed on their tether. Subsequently, s he should undergo a metabolic profile assessment no sooner than 1 month from now via [facility]. She also will be discharged with a 5- or 7-day prescription of Cipro 500 mg p.o. b.i.d. since final cultu re results were not available at the time of the surgery today. VIOLA/ANUP Voice ID: [id number] Report ID: [id number]
== END 2021-02-13 13:43 | disposition home or self-care (01) ==
LOC: OR 07:50
PROVIDERS: ATTEND Urology
PROC: 0TF68ZZ Fragmentation in Right Ureter, Via Natural or Artificial Opening Endoscopic (ICD-10-PCS; 2021-02-13)
PROC: 0T788DZ Dilation of Bilateral Ureters with Intraluminal Device, Via Natural or Artificial Opening Endoscopic (ICD-10-PCS; 2021-02-13)
PROC: 0TF78ZZ Fragmentation in Left Ureter, Via Natural or Artificial Opening Endoscopic (ICD-10-PCS; principal; 2021-02-13 09:30)
DX: N20.2 Calculus of kidney with calculus of ureter (principal); Z20.822 Contact with and (suspected) exposure to COVID-19
CPT/HCPCS: 87088; 87086; 82947 ×2; 74450; 51610; 52356; U0003; J2704; J2250; J3010; J1100; J2710; J7030 ×2; J1580 ×2; J2405; 81003; 81015

== ENCOUNTER 2021-05-10 18:15 | Observation (INO) | payer BC ==
--- OUTSIDE RECORDS SUMMARY | 2021-05-10 18:18 | XMS REPORT | Continuity of Care Document ---
:1965 Author Organization [facility] t Address [address] [place] [address] [address] [place] [address] Care Team Providers Name Role Phone Mima De Attending Clinician Unavailable DONAVAN Attending Clinician Unavailable Payers Payer Name Policy Type Policy Number Effective Date Expiration Date S [facility] [id number] [employer] 00:00:00 [facility] [id number] 2016 00:00:00 Problems This patient has no known problems. Allergies, Adverse Reactions, Alerts Allergy Allergy Status Severity Reaction(s) Onset Inactive Treating Comm ents Source Name Type Date Date Clinician PENICILL Drug Active High Anaphylaxis Uni vers INS Class 3-16 ity of 00:00: [address] Medications This patient has no known medications. Procedures This patient has no known procedures. Encounters Start End Encounter Admission Attending Care Care Encounter Source Date/Time Date/Time Type Type Clinicians Facility Department ID 2021-04-04 Outpatient Kenisha [facility] [id number] [address] 14:14:08 [facility] [id number] [facility] 2021-04-04 Outpatient [facility] [id number] 14:04:52 [id number] [facility] 2020-03-13 2020-03-13 Outpatient Esme [facility] [id number] This patient has no known results.
[2021-05-10] MEDS ORDERED: ACETAMINOPHEN 500 MG TAB ONE (19:25)
[2021-05-10] MEDS ORDERED: NA CHLORIDE 0.9% 1,000 ML ONE ×2 (19:26→21:27)
[2021-05-10 19:31] LABS: Absolute Lymphocytes (CBC) 0.7 K/uL (0.7-4.9); Hematocrit 36.7 % (36.0-45.0); MPV 8.4 fL (7.6-11.3); RBC Red Blood Cell Count 4.66 M/uL (3.86-4.86)
[2021-05-10 19:33] LABS: Urine Blood Negative (Negative); Urine Glucose Negative (Negative); Urine Protein 1+ (Negative)
[2021-05-10 19:50] LABS: Protime INR 1.06
[2021-05-10 20:25] LABS: Urine Bacteria >50 /HPF (<20); Urine RBC <5 /HPF (NONE SEEN)
[2021-05-10] MEDS ORDERED: CEFTRIAXONE 1000 MG/VIAL ONE (20:42)
[2021-05-10] MEDS ORDERED: AZITHROMYCIN 500 MG INJ IVPB ONE (20:43)
[2021-05-10] MEDS ORDERED: NA CHLORIDE 0.9% 250 ML ONE (20:43)
--- NOTE | 2021-05-10 20:47 | RAD REPORT ---
EXAM DESCRIPTION: RAD - Chest Single View - 05/10/2021 8:25 pm CLINICAL HISTORY: COUGH COMPARISON: December 2020 TECHNIQUE: AP portable chest image was obtained 05/10/2021 8:25 pm . FINDINGS: Lungs are clear. Low lung volumes accentuate the interstitial pattern. Heart and vasculatu re are normal. No measurable pleural effusion and no pneumothorax. No acute bony abnormality seen. No acute aortic findings suspected. IMPRESSION: No acute cardiopulmonary process.
[2021-05-10 21:02] LABS: Albumin 3.1 g/dL (3.4-5.0); Bilirubin Direct 0.2 mg/dL (0-0.2); Protein, Total 7.6 g/dL (6.4-8.2); Troponin High Sensitivity 6.4 pg/mL (<58.9)
[2021-05-10] MEDS ORDERED: ONDANSETRON 4 MG/2 ML VIAL ONE (21:06)
[2021-05-10 21:17] LABS: Blood Morphology Comment NOT SEEN (NOT SEEN); Platelet Estimate ADEQ; White Blood Cell Scan OK (OK)
--- NOTE | 2021-05-10 22:45 | EDPHYS ---
Physician Documentation [facility] Name: Willow Guerrero Age: 55 yrs Sex: Female : 1965 Arrival Date: 05/10/2021 Time: 18:19 Bed 9 Private MD: Juanita De C ED Physician Karine Castaneda HPI: 05/10 19:10 This 55 yrs old Female presents to ER via Ambulatory with complaints of Fever, Vomiting.cp 19:10 The patient reports fever, that was measured at 101.6 degrees Fahrenheit. cp 19:10 Onset: The symptoms/episode began/occurred yesterday. Associated signs and symptoms: cp Pertinent positives: cough, vomiting, Pertinent negatives: abdominal pain, altered mental status, diarrhea, headache, chest pain. Severity of symptoms: in the emergency department the symptoms are unchanged despite home interventions. 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 Flu vaccine status is unknown. - Social history:: Smoking status: Patient denies any tobacco usage or history of. ROS: 19:15 Constitutional: Positive for body aches, fever. cp 19:15 Eyes: Negative for injury, pain, redness, and discharge. cp 19:15 ENT: Negative for drainage from ear(s), ear pain, sore throat, difficulty swallowing, difficulty handling secretions. 19:15 Cardiovascular: Negative for chest pain, edema. 19:15 Respiratory: Positive for cough, Negative for shortness of breath, wheezing. 19:15 Abdomen/GI: Positive for nausea and vomiting, Negative for abdominal pain, diarrhea, constipation. 19:15 Neuro: Negative for altered mental status, headache. 19:15 All other systems are negative. Exam: 19:20 Constitutional: The patient appears in no acute distress, alert, awake, cp non-diaphoretic, non-toxic, well developed, well nourished, obese, uncomfortable. 19:20 Head/Face: Normocephalic, atraumatic. cp 19:20 Eyes: Periorbital structures: appear normal, Pupils: equal, round, and reactive to light and accomodation, Extraocular movements: intact throughout, Conjunctiva: normal, no exudate, no injection, Sclera: no appreciated abnormality, Lids and lashes: appear normal, bilaterally. 19:20 ENT: External ear(s): are unremarkable, Nose: is normal, Mouth: Lips: moist, Oral mucosa: moist. 19:20 Neck: ROM/movement: is normal, is supple, without pain, no range of motions limitations, no meningismus. 19:20 Chest/axilla: Inspection: normal. 19:20 Cardiovascular: Rate: tachycardic, Rhythm: regular, Edema: is not appreciated, JVD: is not appreciated. 19:20 Respiratory: the patient does not display signs of respiratory distress, Respirations: labored breathing, is not present, shallow respirations, are not present, Breath sounds: bronchial sounds, that are mild, are heard diffusely, decreased breath sounds, are not appreciated, stridor, is not appreciated, wheezing: is not appreciated. 19:20 Abdomen/GI: Inspection: obese Palpation: abdomen is soft and non-tender, in all quadrants. 19:20 Back: CVA tenderness, is absent. 19:20 Skin: cellulitis, is not appreciated, no rash present. 19:20 Neuro: Orientation: to person, place \\T\\ time. Mentation: is normal, Motor: moves all fours, strength is normal, Sensation: is normal. 05/11 00:37 ECG was reviewed by the Attending Physician. cp Vital Signs: 05/10 18:47 BP 164 / 84; Pulse 141; Resp 24; Temp 100.3; Pulse Ox 95% on R/A; Weight 119.75 kg; ll1 Height 5 ft. 1 in. (154.94 cm); Pain 8/10; 19:33 BP 99 / 38; Pulse 138; Resp 10; Pulse Ox 95% on R/A; st1 22:04 BP 119 / 66; Pulse 112; Resp 19; Pulse Ox 100% on R/A; st1 05/11 00:01 BP 119 / 60; Pulse 108; Resp 16; Temp 98.05(O); Pulse Ox 100% on R/A; st1 05/10 18:47 Body Mass Index 49.88 (119.75 kg, 154.94 cm) ll1 MDM: 05/10 18:55 Patient medically screened. cp 20:00 Differential diagnosis: viral Infection, bacterial infection, bronchitis, pneumonia cp UTI, sepsis. 22:15 Data reviewed: vital signs, nurses notes, lab test result(s), EKG, radiologic studies, cp plain films. 22:15 Test interpretation: by ED physician or midlevel provider: ECG, plain radiologic cp studies. Response to treatment: the patient's symptoms have markedly improved after treatment, and as a result, I will admit patient. 05/10 19:06 Order name: Basic Metabolic Panel cp 05/10 19:06 Order name: Blood Culture Adult (2) cp 05/10 19:06 Order name: CBC with Diff cp 05/10 19:06 Order name: LFT's cp 05/10 19:06 Order name: Lactate cp 05/10 19:06 Order name: Lipase cp 05/10 19:06 Order name: Procalcitonin cp 05/10 19:06 Order name: Protime (+inr) cp 05/10 19:06 Order name: Ptt, Activated cp 05/10 19:06 Order name: Troponin HS cp 05/10 19:06 Order name: Urine Culture cp 05/10 19:06 Order name: Urine Microscopic Only; Complete Time: 20:54 cp 05/10 20:55 Interpretation: Normal except: UWBC 5-10; UBACT >50; SQEPI 5-10. cp 05/10 19:06 Order name: Basic Metabolic Panel; Complete Time: 21:19 EDMS 05/10 22:12 Interpretation: Normal except: NA 133; GLUC 252; GFR 75; CA 8.3. cp 05/10 19:06 Order name: Blood Culture EDMS 05/10 19:06 Order name: CBC with Automated Diff; Complete Time: 21:19 EDMS 05/10 19:55 Interpretation: Normal except: MCV 78.8; MCH 25.9; RDW 16.3; BEAU% 89.1; LYM% 7.0; MN% cp 2.9; NEUT A 9.3. 05/10 19:06 Order name: Liver (Hepatic) Function; Complete Time: 21:47 EDMS 05/10 19:06 Order name: Lactate; Complete Time: 20:54 EDMS 05/10 19:06 Order name: Lipase; Complete Time: 21:47 EDMS 05/10 19:06 Order name: Procalcitonin; Complete Time: 20:54 EDMS 05/10 22:12 Interpretation: Reviewed. cp 05/10 19:07 Order name: Protime (+INR); Complete Time: 19:55 EDMS 05/10 19:07 Order name: PTT, Activated Partial Thromb; Complete Time: 19:55 EDMS 05/10 19:07 Order name: Troponin High Sensitivity; Complete Time: 21:47 EDMS 05/10 19:33 Order name: Urine Dipstick-Ancillary; Complete Time: 19:55 EDMS 05/10 19:35 Order name: Urine --Ancillary (enter results); Complete Time: 20:54 cs9 05/10 21:17 Order name: CBC Smear Scan; Complete Time: 21:47 EDMS 05/10 22:43 Order name: COVID-19/FLU A+B (Document "Date of Onset" if Symptomatic) cp 05/10 23:51 Order name: Basic Metabolic Panel EDMS 05/10 23:51 Order name: Basic Metabolic Panel EDMS 05/10 23:51 Order name: CBC with Automated Diff EDMS 05/10 19:06 Order name: Chest Single View XRAY; Complete Time: 20:54 cp 05/10 19:06 Order name: Accucheck cp 05/10 19:06 Order name: Cardiac monitoring; Complete Time: 19:21 cp 05/10 19:06 Order name: EKG - Nurse/Tech; Complete Time: 19:21 cp 05/10 19:06 Order name: IV Saline Lock - Large Bore; Complete Time: 19:21 cp 05/10 19:06 Order name: Labs collected and sent; Complete Time: 19:21 cp 05/10 19:06 Order name: O2 Per Protocol; Complete Time: 19:21 cp 05/10 19:06 Order name: O2 Sat Monitoring; Complete Time: 19:21 cp 05/10 19:06 Order name: Urine Dipstick-Ancillary (obtain specimen); Complete Time: 20:11 cp 05/10 19:06 Order name: Urine Test (obtain specimen); Complete Time: 20:11 cp 05/10 22:17 Order name: PO challenge; Complete Time: 22:46 cp 05/10 23:51 Order name: 60g Consistent Carbohydrate (ADA 1800/2000) EDMS 05/10 23:51 Order name: CBC with Automated Diff EDMS 05/10 23:51 Order name: Lipase EDMS 05/10 23:51 Order name: Lipase EDMS 05/10 23:51 Order name: Liver (Hepatic) Function EDMS 05/10 23:51 Order name: Liver (Hepatic) Function EDMS EC/04 00:37 Rate is 144 beats/min. Rhythm is regular. WV interval is normal. QRS interval is cp normal. QT interval is normal. Interpreted by me. Reviewed by me. Administered Medications: 05/10 19:23 Drug: Acetaminophen 1000 mg Route: PO; st1 19:23 Drug: NS 0.9% 1000 ml Route: IV; Rate: 1 bolus; Site: right forearm; st1 21:08 Follow up: IV Intake: 1000ml st1 20:30 Drug: Zithromax (azithromycin) 500 mg Route: IVPB; Infused Over: 1 hrs; Site: right st1 forearm; 20:35 Drug: Rocephin - (cefTRIAXone) 1 grams Route: IVPB; Infused Over: 30 mins; Site: left st1 antecubital; 21:05 Follow up: IV Intake: 50ml st1 20:56 Drug: Zofran (Ondansetron) 4 mg Route: IVP; Site: left antecubital; st1 21:25 Drug: NS 0.9% 1000 ml Route: IV; Rate: 1 bolus; Site: right forearm; st1 Disposition Summary: 05/10/21 22:44 Hospitalization Ordered Hospitalization Status: Inpatient Admission cp Provider: Juanita De cp Location: Telemetry/[facility] (Inpatient) cp Condition: Stable cp Problem: new cp Symptoms: have improved cp Bed/Room Type: Standard cp Room Assignment: 221(05/10/21 23:56) cg Diagnosis - UTI/ Urinary tract infection, site not specified cp Forms: - Medication Reconciliation Form cp - SBAR form cp Signatures: Dispatcher [employer] EDMS Eugenio De La Cruz FNP-C OIL AND G[employer] WELL TREATMENT OPERATOR-Cla1 Jason Moss PA PA cp Garcia, Cindy RN ARMAAN cg Stacy Cueva RN RN ll1 Anabel Pinto RN RN st1 Corrections: (The following items were deleted from the chart) 22:32 19:15 This 55 yrs old Female presents to ER via Ambulatory with complaints of Fever, cp Vomiting. cp 23:56 22:44 cp cg
--- NOTE | 2021-05-10 22:45 | ER ---
Nurse's Notes [facility] Name: Willow Guerrero Age: 55 yrs Sex: Female : 1965 Arrival Date: 05/10/2021 Time: 18:19 Bed 9 Private MD: Juanita De C Diagnosis: UTI/ Urinary tract infection, site not specified Presentation: 05/10 18:47 Chief complaint: Patient states: Fatigue for 2 days. Fever, N/V/D for 1 day. + SOB. ll1 Fever 101.6 at home. Coronavirus screen: Vaccine status: Patient reports being unvaccinated. Client denies travel out of the [place] in the last 14 days. cough unrelated to allergies, diarrhea, difficulty breathing, fatigue, fever, headache, muscle pain, nausea, vomiting. Client presents with at least one sign or symptom that may indicate coronavirus-19. Standard/surgical mask placed on the client. Ebola Screen: Patient denies travel to an Ebola-affected area in the 21 days before illness onset. Initial Sepsis Screen: Does the patient meet any 2 criteria? RR > 20 per min. HR > 90 bpm. Does the patient have a suspected source of infection? Yes: Acute abdominal pain. Risk Assessment: Do you want to hurt yourself or someone else? Patient reports no desire to harm self or others. Onset of symptoms was May 09, 2020. 18:47 Method Of Arrival: Ambulatory ll1 18:47 Acuity: HERBERT 2 ll1 Triage Assessment: 19:35 General: Appears in no apparent distress. uncomfortable, obese, well groomed, Behavior st1 is calm, cooperative. GI: Reports nausea. 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 Flu vaccine status is unknown. - Social history:: Smoking status: Patient denies any tobacco usage or history of. Screenin:20 Abuse screen: Denies threats or abuse. Nutritional screening: No deficits noted. st1 Tuberculosis screening: No symptoms or risk factors identified. Fall Risk None identified. No fall in past 12 months (0 pts). No secondary diagnosis (0 pts). IV access (20 points). Ambulatory Aid- None/Bed Rest/Nurse Assist (0 pts). Gait- Normal/Bed Rest/Wheelchair (0 pts) Mental Status- Oriented to own ability (0 pts). Total Paulson Fall Scale indicates No Risk (0-24 pts). 19:20 Sepsis Screening: . Infection:. st1 Assessment: 19:34 Pain: Complains of pain in Headache Pain does not radiate. Pain currently is 9 out of st1 10 on a pain scale. Quality of pain is described as aching, Pain began suddenly. GI: No deficits noted. Abdomen is round non-distended, obese, Reports nausea. 20:54 Reassessment: the patient is vomiting. LEXIS Acevedo notifed. st1 22:55 Reassessment: patient is tolerating PO fluids. st1 22:56 Reassessment: patient was updated on admission status and room status. st1 05/11 00:14 Reassessment: attempted to call report at [phone]. RN not assigned to the patient and will st1 call back when ready for report. 00:19 Reassessment: report called to Giovany Adair RN. st1 Vital Signs: 03 18:47 BP 164 / 84; Pulse 141; Resp 24; Temp 100.3; Pulse Ox 95% on R/A; Weight 119.75 kg; ll1 Height 5 ft. 1 in. (154.94 cm); Pain 8/10; 19:33 BP 99 / 38; Pulse 138; Resp 10; Pulse Ox 95% on R/A; st1 22:04 BP 119 / 66; Pulse 112; Resp 19; Pulse Ox 100% on R/A; st1 05/11 00:01 BP 119 / 60; Pulse 108; Resp 16; Temp 98.05(O); Pulse Ox 100% on R/A; st1 03 18:47 Body Mass Index 49.88 (119.75 kg, 154.94 cm) ll1 ED Course: 05/10 18:19 Patient arrived in ED. ds1 18:19 Juanita De MD is Private Physician. ds1 18:48 Triage completed. ll1 18:49 Arm band placed on Patient placed in an exam room, on a stretcher. ll1 18:54 Jason Moss PA is PHCP. cp 18:54 Karine Castaneda MD is Attending Physician. cp 19:00 La Zhou, ARMAAN is Primary Nurse. jg9 19:10 Primary Nurse role handed off by La Zhou, RN cs9 19:10 Inserted saline lock: 20 gauge in right forearm, using aseptic technique. Blood st1 collected. 19:15 Inserted saline lock: 20 gauge in left antecubital area, using aseptic technique. Blood st1 collected. 19:19 Anabel Pinto, RN is Primary Nurse. st1 19:20 Basic Metabolic Panel Sent. st1 19:20 Blood Culture Adult (2) Sent. st1 19:20 CBC with Diff Sent. st1 19:21 Troponin HS Sent. st1 19:21 Ptt, Activated Sent. st1 19:21 Protime (+inr) Sent. st1 19:21 LFT's Sent. st1 19:21 Lactate Sent. st1 19:21 Lipase Sent. st1 19:21 Procalcitonin Sent. st1 19:35 Patient has correct armband on for positive identification. Bed in low position. Call st1 light in reach. Side rails up X 1. front desk monitor on. Pulse ox on. NIBP on. Head of bed elevated. 20:10 Urine --Ancillary (enter results) Sent. st1 20:11 Chest Single View XRAY Sent. st1 20:11 Urine Culture Sent. st1 20:11 Urine Microscopic Only Sent. st1 20:25 Chest Single View XRAY In Process Unspecified. EDMS 22:19 patient is able to tolerated fluids. st1 22:44 Juanita De MD is Hospitalizing Provider. cp 22:46 COVID-19/FLU A+B (Document "Date of Onset" if Symptomatic) Sent. lt3 03/04 00:14 No provider procedures requiring assistance completed. st1 00:19 Patient admitted, IV remains in place. st1 Administered Medications: 05/10 19:23 Drug: Acetaminophen 1000 mg Route: PO; st1 19:23 Drug: NS 0.9% 1000 ml Route: IV; Rate: 1 bolus; Site: right forearm; st1 21:08 Follow up: IV Intake: 1000ml st1 20:30 Drug: Zithromax (azithromycin) 500 mg Route: IVPB; Infused Over: 1 hrs; Site: right st1 forearm; 20:35 Drug: Rocephin - (cefTRIAXone) 1 grams Route: IVPB; Infused Over: 30 mins; Site: left st1 antecubital; 21:05 Follow up: IV Intake: 50ml st1 20:56 Drug: Zofran (Ondansetron) 4 mg Route: IVP; Site: left antecubital; st1 21:25 Drug: NS 0.9% 1000 ml Route: IV; Rate: 1 bolus; Site: right forearm; st1 Intake: 21:05 IV: 50ml; Total: 50ml. st1 21:08 IV: 1000ml; Total: 1050ml. st1 Outcome: 22:44 Decision to Hospitalize by Provider. aleida 05/11 00:18 Admitted to Med/surg accompanied by nurse, family with patient, via wheelchair, room st1 221. Condition: good Instructed on the need for admit, Demonstrated understanding of instructions. 00:30 Patient left the ED. st1 Signatures: Dispatcher [employer] EDSC Allison, Pao dsJason Enamorado PA PA cp Stacy Cueva, ARMAAN RN ll1 Jeni Espinal 9 Ethel Hopper 3 La Zhou RN RN jg9 Anabel Pinto RN RN st1 Corrections: (The following items were deleted from the chart) 05/10 19:19 19:19 Inserted saline lock: 20 gauge in right forearm, using aseptic technique. Blood st1 collected. st1
[2021-05-10 23:26] LABS: SARS-COV-2 RT PCR NEGATIVE (NEGATIVE)
[2021-05-10] MEDS ORDERED: ACETAMINOPHEN 500 MG TAB PO PRN (23:48)
[2021-05-10] MEDS ORDERED: ONDANSETRON 4 MG/2 ML VIAL IV PRN (23:48)
[2021-05-10] MEDS ORDERED: GLUCAGON 1 MG/VIAL IM PRN (23:50)
[2021-05-10] MEDS ORDERED: D50W 25 GM/50 ML SYRINGE IV PRN (23:50)
[2021-05-11 01:02] VITALS: BMI 49.3
[2021-05-11 04:55] LABS: Absolute Lymphocytes (CBC) 1.1 K/uL (0.7-4.9); Hematocrit 33.5 % (36.0-45.0); Lymphocytes % 18.3 % (15.3-44.8); MPV 8.3 fL (7.6-11.3); RBC Red Blood Cell Count 4.18 M/uL (3.86-4.86)
[2021-05-11 05:07] LABS: ALT/SGPT 37 U/L (12-78); AST/SGOT 38 U/L (15-37); Albumin 2.7 g/dL (3.4-5.0); Alkaline Phosphatase 66 U/L (45-117); BUN Blood Urea Nitrogen 10 mg/dL (7-18); Bicarbonate 27 mmol/L (21-32); Bilirubin Direct 0.2 mg/dL (0-0.2); Bilirubin Total 0.7 mg/dL (0.2-1.0); Glucose Level 254 mg/dL (74-106); Lipase 126 U/L (73-393); Potassium 3.6 mmol/L (3.5-5.1); Protein, Total 6.5 g/dL (6.4-8.2); Sodium Level 136 mmol/L (136-145)
[2021-05-11 07:50] VITALS: O2SAT 98
[2021-05-11] MEDS: INSULIN -REGULAR HUMAN 50 UNIT/0.5 ML ML SQ SCH ×2 (07:59→11:31)
[2021-05-11] MEDS ORDERED: CEFTRIAXONE 1,000 MG in NA CHLORIDE 0.9% 50 ML IVPB SCH (09:00)
--- NOTE | 2021-05-11 09:45 | RAD REPORT ---
EXAM DESCRIPTION: CTAbdomen Pelvis Wo Contrast - 05/11/2021 9:31 am CLINICAL HISTORY: h/o kidney stone COMPARISON: <Comparisons> TECHNIQUE: CT of the abdomen and pelvis was performed. All CT scans are performed using dose optimization technique as appropriate and may include automated exposure control or mA/KV adjustment according to patient size. FINDINGS: Lower chest: Coronary artery calcifications. Liver: Hepatic steatosis. Biliary: Cholecystectomy. Stomach: No significant focal abnormality. Duodenum: No significant focal abnormality. Pancreas: No significant abnormality. Spleen: No significant abnormality. Adrenal: No suspicious lesions. Kidney/ureter: No hydronephrosis. Nonobstructive bilateral nephrolithiasis. The largest on the right measures 6 millimeters. Largest on the left measures 4 millimeters. Retroperitoneum: No retroperitoneal adenopathy. Vascular: No aneurysm. Bowel: No significant focal abnormality. No appendix identified. Peritoneum: No ascites or free air. Bladder: Grossly unremarkable. Reproductive: No adnexal masses. Hysterectomy. Bones: No acute fracture. Other: n/a IMPRESSION: No acute intra-abdominal or pelvic finding. Bilateral nonobstructive nephrolithiasis .
--- NOTE | 2021-05-11 11:31 | EKG ---
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
[2021-05-11 12:51] VITALS: BP 123/58; TEMP 97.8
--- NOTE | 2021-05-11 21:20 | HP ---
Date of Admission: 05/11/2021 Chief Complaint: Fever, chills, nausea, vomiting. History Of Present Illness: This is a 55-year-old female patient who came into the emergency room with above-mentioned complaints and after she was evaluated she was admitted to the hospital. This morning, when I saw her she was feeling much better and she reports that she started to have some cough, congestion about 2-3 days ago and started to cough up some mucus, which was clear and at times it was yellow in color. She has been having some nausea with this for last 2 days and yesterday she started to have vomiting along with fever and chills, so she came into the emergency room. After she was evaluated, she was admitted to the hospital. She denies any dysuria or hematuria. Allergies: TO PENICILLIN CAUSING THROAT CLOSING SENSATION. Medications: List reviewed. Review of Systems: Respiratory: As mentioned above. Constitutional: As mentioned above. GI: As mentioned above. All other systems reviewed and negative. Past Medical History: Significant for kidney stone, COVID-19 illness March 13, 2020, migraine, type 2 diabetes mellitus, hyperlipidemia, palpitations, gastroesophageal reflux disease, non-alcoholic fatty liver disease, vitamin D deficiency. Past Surgical History: Tonsillectomy, cholecystectomy, appendectomy, lithotripsy, ureter stent placement in the past for kidney stone, which was in December 2020, and subsequently it was removed, hysterectomy. Family History: Father , had blood clot. Mother had stroke and melanoma. Sister with history of migraines. Social History: Negative for smoking. Use of alcohol very rarely. Physical Examination: Vital Signs: Temperature 97.4, pulse 101, respiratory rate 17, blood pressure 110/65, oxygen saturation 98% on room air, height 5 feet 1 inch, weight 260 pounds. General: Awake, alert, oriented, not in distress. HEENT: Head atraumatic, normocephalic. Conjunctivae nonerythematous. Sclerae white. Mouth, no thrush or edema noted. Ears/Nose, no mass, lesion, discharge noted. Neck: Supple. No JVD, lymph nodes, bruit, thyromegaly noted. Lungs: Bilateral good equal air entry. Clear to auscultation. No rhonchi. No rales. Heart: Normal heart sounds, no murmur or gallop. Abdomen: Soft, bowel sounds normal. No guarding, rigidity, tenderness, mass, hepatosplenomegaly, distention, or bruit noted. Extremities: No leg edema. No calf tenderness. Skin: No rash, ulcer, cellulitis. Lymphatics: No lymph node enlargement in neck, supraclavicular, infraclavicular region. Neuro: No focal neurological deficit. Chest: Unremarkable. External Genitalia: Deferred. Rectal: Deferred. Laboratory Data: Yesterday, white count 10.5, hemoglobin 12, platelets 338. This morning, white count 6, hemoglobin 10.9, platelets 251. Yesterday, sodium 133, potassium 4, chloride 98, bicarb 25, BUN 14, creatinine 0.80, glucose 252. Liver function tests unremarkable. Lipase 109, procalcitonin 0.14. This morning, sodium 136, potassium 3.6, chloride 105, bicarb 27, BUN 10, creatinine 0.61, glucose 254. Liver function tests unremarkable. Urinalysis negative for nitrite, negative for leukocyte esterase, 5-10 wbc, more than 50 bacteria, 1+ protein. Urine test negative. Influenza A and B and COVID-19 test negative. Chest x-ray no acute cardiopulmonary changes. Impression: 1. Acute bronchitis. 2. Nausea with vomiting secondary to above. 3. Type 2 diabetes mellitus, uncontrolled. 4. Hyperlipidemia. 5. Gastroesophageal reflux disease. 6. Vitamin D deficiency. 7. History of kidney stone. 8. Non-alcoholic fatty liver disease. Plan: We will go ahead and admit the patient to hospital for further evaluation and management of this problem. We will manage diabetes with sliding scale insulin. Empiric antibiotic was started, which was ceftriaxone. We will continue that. I have ordered CAT scan of the abdomen per kidney stone protocol. We will follow up on that. The patient is feeling much better today compared to yesterday and depending on the CAT scan result, we will decide if we can possibly discharge her to go home with oral antibiotics or not. Details and plan of treatment discussed with the patient. Addendum: CAT scan was done, result reviewed and has bilateral kidney stones but no evidence of any obstruction. Patient will be discharged to go home in stable condition. See copy of discharge order for details. ALYSIA/MODL Voice ID: [id number] [facility]ITAN HOSPITALPhlilip
== END 2021-05-11 14:29 | disposition home or self-care (01) ==
LOC: ER 18:15 → 2ND 05-11 00:17 → INTOOBSV 05-11 00:17
PROVIDERS: ADMIT Internal Medicine; ATTEND Internal Medicine
DX: J20.9 Acute bronchitis, unspecified (principal); E11.9 Type 2 diabetes mellitus without complications; N39.0 Urinary tract infection, site not specified; E78.5 Hyperlipidemia, unspecified; K21.9 Gastro-esophageal reflux disease without esophagitis; E55.9 Vitamin D deficiency, unspecified; K76.0 Fatty (change of) liver, not elsewhere classified; G43.909 Migraine, unspecified, not intractable, without status migrainosus; Z88.0 Allergy status to penicillin; Z87.442 Personal history of urinary calculi; Z86.16 Personal history of COVID-19; Z20.822 Contact with and (suspected) exposure to COVID-19; Z90.49 Acquired absence of other specified parts of digestive tract; Z90.710 Acquired absence of both cervix and uterus; Z82.3 Family history of stroke; Z80.8 Family history of malignant neoplasm of other organs or systems
CPT/HCPCS: 93005; 87040 ×2; 87088; 85025 ×2; 87086; 80048 ×2; 36415; 81025; 85610; 82947 ×2; 80076 ×2; 83605; 85730; 84484; 83690 ×2; 84145; 0240U; 74176; 71045; 99285; J0456; J7050; J7030 ×2; J2405; 81003; 81015; G0378

== ENCOUNTER 2022-01-18 06:38 | Day surgery (SDC) | payer BC ==
[2022-01-18] MEDS ORDERED: NA CHLORIDE 0.9% 1,000 ML ONE (07:27)
[2022-01-18 08:04] LABS: Absolute Lymphocytes (CBC) 2.5 K/uL (0.7-4.9); Lymphocytes % 22.2 % (15.3-44.8); MCV 83.1 fL (80-100); MPV 8.5 fL (7.6-11.3); RBC Red Blood Cell Count 4.46 M/uL (3.86-4.86)
[2022-01-18 08:21] LABS: Potassium 4.2 mmol/L (3.5-5.1)
[2022-01-18] MEDS ORDERED: INSULIN -REGULAR HUMAN 50 UNIT/0.5 ML ML ONE ×2 (08:38→11:23)
[2022-01-18] MEDS ORDERED: CELECOXIB 100 MG CAPSULE ONE (08:44)
[2022-01-18] MEDS ORDERED: ACETAMINOPHEN 500 MG TAB ONE (08:44)
--- NOTE | 2022-01-18 09:11 | RAD REPORT ---
EXAM DESCRIPTION: RAD - Chest Single View - 01/18/2022 7:24 am CLINICAL HISTORY: pre procedure screening Chest pain. COMPARISON: Chest Single View dated 05/10/2021; Abdomen 1 View (KUB) dated 01/02/2021; Abdomen 1 View (KUB) dated 12/26/2020; Chest Pa And Lat (2 Views) dated 12/25/2020 FINDINGS: Portable technique limits examination quality. Mild interstitial pulmonary edema seen. The heart is upper limit normal in size. No displaced fractur es.Cervical hardware plate. IMPRESSION: No acute intrathoracic process suspected.
[2022-01-18] MEDS ORDERED: FENTANYL CITR 100 MCG/2 ML ONE (09:47)
[2022-01-18] MEDS ORDERED: MIDAZOLAM HCL 2 MG/2 ML INJ ONE (09:47)
[2022-01-18] MEDS ORDERED: LIDOCAINE 2% MPF 5 ML VIAL ONE (09:47)
[2022-01-18] MEDS ORDERED: propofoL 200 MG/20 ML VIAL IV ONE (09:47)
[2022-01-18] MEDS ORDERED: ONDANSETRON 4 MG/2 ML VIAL ONE (09:48)
[2022-01-18] MEDS: CIPROFLOXACIN 400mg IV 400 MG/200 ML BAG IV ONE ×2 (10:18→10:20)
[2022-01-18] MEDS ORDERED: KETOROLAC 30 MG/ML INJ ONE (10:32)
[2022-01-18] MEDS ORDERED: HYDROCODONE/APAP 7.5/325 MG TAB PO PRN (11:03)
--- NOTE | 2022-01-18 11:08 | P.OP ---
Date of Service: 01/18/22 Preop diagnosis: Left posterior thigh mass Postop diagnosis: Same Procedure performed: Wide excision left posterior thigh mass 10 x 4 cm with layered closure Surgeon: Serge Bo MD Bounty Hunter: NEIL Anderson Estimated blood loss: Minimal Specimen: Left posterior thigh mass Findings: Epidermal inclusion cyst Anesthesia: General Complications: None Drains: Quarter-inch Siva drain Fluids and blood products: Non applicable Disposition: Recovery room Operative note: Patient brought to the OR and placed in supine position. General anesthesia begun. Patient placed in the lithotomy position. Patient prepped and draped in usual sterile fashion. Marcaine 0.5% infiltrated for postop pain control. 15 blade used to make approximately a 10 x 4 cm incision around this large exophytic mass. Subcutaneous tissue divided. Mass appeared to be a epidermal inclusion cyst. Entire content and wall of the cyst was dissected free from the surrounding tissue. The cyst was sent to pathology as specimen. Wound irrigated and bleeding controlled with cautery. There was some inflammation around the cyst. Quarter inch Siva drain placed and secured with 3-0 nylon suture. 3-0 chromic used to reapproximate the deep subcutaneous tissue. 4-0 nylon used to close skin. Sterile dressing applied. Patient awakened and taken to recovery room in good general condition. CC: Dr. De's office
[2022-01-18 14:09] VITALS: TEMP 98
[2022-01-18 14:12] VITALS: BP 116/68; O2SAT 98
--- NOTE | 2022-01-18 15:55 | EKG ---
Test Date: 2022-01-18 Test Time: 07:14:07 Eyelet Cutter: TF MEASUREMENT RESULTS: Intervals: Rate: 96 NM: 122 QRSD: 78 QT: 334 QTc: 421 [place]: P: 52 NM: 122 QRS: -11 T: 30 INTERPRETIVE STATEMENTS: Normal sinus rhythm Moderate voltage criteria for LVH, may be normal variant Borderline ECG Compared to ECG 05/10/2021 19:12:09 Sinus tachycardia no longer present Electronically Signed On 01-18-22 15:54:34 [employer] by Pankaj Pride
== END 2022-01-18 12:38 | disposition home or self-care (01) ==
LOC: OR 06:38
PROVIDERS: ATTEND Surgery
PROC: 0JBM0ZZ Excision of Left Upper Leg Subcutaneous Tissue and Fascia, Open Approach (ICD-10-PCS; principal; 2022-01-18 09:30)
DX: L72.0 Epidermal cyst (principal); Z88.0 Allergy status to penicillin
CPT/HCPCS: 93005; 85025; 80048; 36415; 82947 ×4; 88304; 71045; 11406; 12034; J2704; J1815 ×2; J2001; J2250; J3010; J7030; J2405; J0744; 88305